=== PATIENT | male | born 1940 | race Caucasian/White ===

== ENCOUNTER 2019-10-20 08:37 | Inpatient (IN) ==
--- OUTSIDE RECORDS SUMMARY | 2019-10-20 08:41 | External Medical Summary | Continuity of Care Document ---
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.9) Pacemaker (V45.01) (Z95.0) History of osteoarthritis (V13.4) (Z87.39) Malignant neoplasm of lung, unspecified laterality, unspecified part of lung (162.9) (C34.90) Chronic obstructive pulmonary disease (496) (J44.9) 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 Refills: 0 Multi Vitamin/Minerals Oral Tablet; TAKE 1 TABLET DAILY. Refills: 0 Metoprolol Tartrate 100 MG Oral Tablet; TAKE 1 TABLET DAILY. Refills: 0 DuoNeb 0.5-2.5 (3) MG/3ML SOLN; INHALE PUFFS PRN Refills: 0 Combivent Respimat 20-100 MCG/ACT Inhala tion Aerosol Solution; INHALE 2 PUFFS DAILY NEEDED Refills: 0 Warfarin Sodium TABS; TAKE TABLET as directed Refills: 0 Acidophilus Oral Capsule Refills: 0 Calcium 500 MG TABS Refills: 0 Compazine 10 MG TABS Refills: 0 Xgeva 120 MG/1.7ML Subcutaneous Solution Refills: 0 predniSONE 10 MG Oral Tablet; Take 4 pil ls daily for 2 days, then 3 pills daily for 2 days, then 2 pills daily for 2 days, then 1 pill daily for 2 days. RICKY Lazo Start: 25-Jun-2018 Quantity: 20 Refills: 0 Neurontin TABS; TAKE 1 TABLET 3 TIMES DAILY. Refills: 0 Brovana NEBU; INHALE THE CONTENTS OF 1 V IAL TWO TIMES DAILY IN THE MORNING AND EVENING VIA STANDARD JET NEBULIZER DIRECTED. Refills: 0 Finasteride 5 MG Oral Tablet; TAKE 1 TABLET DAILY. Refills: 0 Valtrex TABS Refills: 0 Spiriva HandiHaler 18 MCG Inhalation Capsule Refills: 0 Revlimid 10 MG Oral Capsule Refills: 0 prednisoLONE Acetate 1 % Ophthalmic Suspension Refills: 0 oxyCODONE HCl - 5 MG Oral Tablet Refills: 0 MiraLax POWD Refills: 0 Magnesium TABS Refills: 0 Lipitor 80 MG Oral Tablet Refills: 0 Lasix TABS Refills: 0 Finasteride 5 MG Oral Tablet Refills: 0 Erythromycin 2 % External Gel Refills: 0 Doxycycline Hyclate 100 MG Oral Capsule Refills: 0 Dexamethasone 4 MG Oral Tablet Refills: 0 Procedures History of Pacemaker Permanent Placement Status: Completed History of Pacemaker Placement Status: C ompleted History of Tonsillectomy Status: Complet ed History of Lung Segmental Resection Stat us: Completed History of Surgery For Abdominal Aortic Aneurysm Status: Completed History of Cath Placement Of Stent 2 Sta tus: Completed History of Peripheral Nerve Block Wrist Median Right Status: Completed History of Elbow Incision And Drainage Infected Bursa Status: Completed History of Laminectomy Lumbar Status: Co mpleted History of colonoscopy Status: Completed History of carpal tunnel surgery Status: Completed History of Cataract Surgery Status: Comp leted History of Back Surgery Status: Complete d Immunizations Influenza On: 2000 Pneumococcal polysaccharide vaccine, 23 valent On: 2000 Family History Father Family history of hypertension (V17.49) (Z82.49) Status: Act mignon Family history of cardiac disorder (V17.49) (Z82.49) Status: Active Brother FHx: cancer (V16.9) (Z80.9) Status: Active Social History - Smoking Status Ex-smoker Plan of Treatment Planned Observations Planned Goals not documented Results No Known Results Results not documented Encounters Appointment; Chito Quick Au.D.|CCC-A 25-Jun-2018 9:20 Encounter Diagnosis: Problem not documented Appointment; Luly Lazo PA-C 25-Jun-2018 10:40 Encounter Diagnosis: Problem not documented"
[2019-10-20] MEDS ORDERED: ALBUTEROL HFA 8 GM INHALER INH ONE (08:54)
[2019-10-20 09:40] LABS: INR 1.2 (0.9-1.1); Partial Thromboplastin Time 28.4 Seconds (21.0-31.0); Prothrombin Time 12.5 Seconds (9.0-12.0)
[2019-10-20 09:46] LABS: Albumin Level 2.5 gm/dl (3.4-5.0); BUN Creatinine Ratio 35.6 (10-20); C Reactive Protein 1.74 mg/dl (0-0.29); Calcium 8.8 mg/dl (8.5-10.1); Creatinine Clr Calc Pharmacy 70.1 ml/min; Est GFR (African American) 86.7; Est GFR (Non-African American) 74.8; Magnesium 2.2 mg/dl (1.8-2.4)
[2019-10-20 09:58] LABS: Acanthocytes 1+; Basophils # (auto) 0.02 K/uL (0-0.2); Basophils % (auto) 0.4 %; Hematocrit (blood only) 31.2 % (42-52); Hemoglobin 10.3 g/dL (14.0-18.0); Immature Granulocytes # (auto) 0.02 K/uL (0.00-0.02); Immature Granulocytes % (auto) 0.4 %; Lymphocytes # (auto) 1.47 K/uL (1.2-3.4); Lymphocytes % (auto) 32.5 %; Mean Corpuscular Volume 87.9 fL (80-100); Mean Platelet Volume 10.5 fL (7.4-10.4); Monocytes # (auto) 0.17 K/uL (0.11-0.59); Monocytes % (auto) 3.8 %; Neutrophils # (auto) 2.85 K/uL (1.4-6.5); Neutrophils % (auto) 62.9 %; Ovalocytes 1+; Platelet Count 80 K/uL (130-400); Platelet Estimate Decreased (Normal); RDW Coefficient of Variation 17.4 % (11.5-14.5); RDW Standard Deviation 56.7 fL (36.4-46.3); Red Blood Count 3.55 M/uL (4.7-6.1); White Blood Count 4.53 K/uL (4.8-10.8)
--- NOTE | 2019-10-20 10:02 | XRay Report ---
XR chest 1V portable CLINICAL HISTORY: SEPSIS COMPARISON STUDY: 03/20/2009 FINDINGS: The heart is borderline enlarged. There is a right subclavian dual-chamber central venous p acemaker present. Postsurgical changes are present on the right with right apical surgical clips. The re are right upper and mid lung zone airspace opacities suspicious for a pneumonia. There is mild bib asilar interstitial thickening. There is underlying pulmonary edema.[ IMPRESSION: Right lung airspace opacity suspicious for pneumonia. Clinical and radiographic follow-up is recommended. ACT 112: Negative or not required by law. Electronically signed by: Antony Hernandez M.D. 10/20/2019 10:01 AM
[2019-10-20] MEDS ORDERED: LEVOFLOXACIN/D5W 750 MG/150 ML BAG IV STA (10:10)
[2019-10-20] MEDS ORDERED: VANCOMYCIN CONSULT ACTIVE PRN ×2 (10:10→12:54)
[2019-10-20] MEDS ORDERED: CEFEPIME 2,000 MG/20 ML VIAL IV STA (10:10)
[2019-10-20] MEDS ORDERED: VANCOMYCIN HCL 1,750 MG in SODIUM CHLORIDE 0.9% 500 ML IV ONE (10:10)
[2019-10-20] MEDS ORDERED: SODIUM CHLORIDE 0.9% 1000ML 1,000 ML IV ONE (10:10)
[2019-10-20 10:11] LABS: Influenza A virus by PCR Neg for Influ A (Neg); Influenza B virus by PCR Neg for Influ B (Neg)
[2019-10-20] MEDS ORDERED: ACETAMINOPHEN 1,000 MG/100 ML VIAL IV STA (10:12)
[2019-10-20 10:18] LABS: Albumin Globulin Ratio 0.7 (0.9-2); Bilirubin,Total 0.5 mg/dl (0.2-1); Creatine Kinase MB 1.8 ng/ml (0.5-3.6); Ferritin 157.6 ng/ml (8-388); Globulin 3.7 gm/dl (2.5-4.0); Total Protein 6.2 gm/dl (6.4-8.2); Troponin I 0.118 ng/ml (0-0.045)
[2019-10-20 10:32] LABS: SARS CoV2 RNA(COVID-19) InHosp NEGATIVE (Negative)
[2019-10-20] MEDS ORDERED: methylPREDNISolone 125 MG/2 ML VIAL IV SCH (11:30)
--- NOTE | 2019-10-20 11:31 | History & Physical Report ---
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 He presents from [facility] for with worsening shortness of breath and fever and was sent to [facility] ER for further evaluation. Here, he was found to be requiring 6 L nasal cannula, he was tachycardic, borderline low blood pressure, with a positive lactate, and a fever to 38.1 C. He was found to have a right-sided multifocal pneumonia on chest x-ray as well as an abnormal urinalysis. His CoVid-19 rapid test was negative, and a bio fire was ordered at the time of admission which is still pending. His troponin was mildly elevated at 0.118 and his ECG showed atrial sensed and ventricular paced rhythm. In the ER, he was given 500 mL's of normal saline, IV vancomycin, IV cefepime, and IV levofloxacin. Of note, he was given prednisone 50 mg p.o. x1 at [facility] prior to arrival. He will be admitted for sepsis, recurrent pneumonia and possible UTI, acute on chronic respiratory failure with hypoxia. -Admit to PCU -Continue broad-spectrum antibiotics for gram-negative pneumonia as well as MRSA pneumonia with cefepime, vancomycin, levofloxacin -Check MRSA swab and discontinue vancomycin if negative -Check CT of the chest -Consult pulmonology for further recommendations given complex history and recurrent pneumonia -Follow urine culture, blood cultures, obtain sputum culture -Follow-up on bio fire rapid respiratory viral panel -Tylenol as needed for fever -Will not give any further IV fluids given his severe cardiomyopathy (2) Pneumonia: As noted above -Appreciate further input from pulmonology (3) UTI (urinary tract infection): -As above (4) Chronic respiratory failure with hypoxia: With acute on chronic respiratory failure with hypoxia Requiring 6 L nasal cannula here At home is on 3 L nasal cannula at at bedtime and with exertion during the day -Treating with his usual bronchodilators, inhaled corticosteroids, IV steroids -Wean down to home dose of O2 as able to (5) Elevated troponin: Mildly elevated As per review of scanned in cardiology records, he had a normal cardiac catheterization in the last few years and has a nonischemic cardiomyopathy This may be myocardial demand ischemia in the setting of sepsis and pneumonia Paced rhythm on ECG, difficult to assess for ischemia -Trend serial troponin -Check echocardiogram (6) Nonischemic cardiomyopathy: -As noted above, with ICD in place since 2013 With frequent small runs of VT while he was seen him in the ER -Continue Toprol-XL, losartan -Check echocardiogram -Consult cardiology to help manage CHF in the setting of severe cardiomyopathy during this admission -Consider pacemaker interrogation in the morning (7) Chronic systolic CHF (congestive heart failure): As above, appears euvolemic to slightly hypervolemic which could be from more rapid ventricular rates with acute illness -Daily weights, strict I's and O's -Continue home Lasix 60 mg once daily and give IV Lasix if needed (8) HTN (hypertension), benign: -Blood pressures low normal but likely secondary to severe cardiomyopathy -Continue home Toprol-XL and losartan which are really more for guideline directed therapy for CHF (9) Lung cancer: Status post right upper lobectomy in 2005 with subsequent XRT/chemotherapy with recurrence near the mediastinum on the right in 2008 again treated with chemotherapy and XRT -Follows with oncology at [facility] (10) COPD (chronic obstructive pulmonary disease): With exacerbation here -IV steroids, bronchodilators, inhaled corticosteroids as above Appreciate pulmonary input (11) Multiple myeloma: -Currently on Revlimid once daily and dexamethasone 6 mg on Mondays -Hold Revlimid while acutely ill -Follows with oncology at [facility] (12) Pancytopenia: Likely secondary to Revlimid therapy -Follow CBC Transfusional support as needed (13) Postherpetic neuralgia: With involvement of the right eye-chronic -Continue home gabapentin doses (14) Paroxysmal atrial fibrillation: -Continue rate control with metoprolol, digoxin -Pulmonology recommended holding Eliquis upon admission in case of pulmonary hemorrhage and/or need for bronchoscopy -Recommend restarting Eliquis if no procedure planned and if pulmonary hemorrhage is ruled out (15) Chronic anticoagulation: Eliquis on hold as above-restart when able to (16) GERD (gastroesophageal reflux disease): Continue PPI Suspected aspiration in the past as per his son -Speech consult placed (17) BPH (benign prostatic hyperplasia): No acute issues -Continue tamsulosin and finasteride (18) Depression: Was just started on mirtazapine 15 mg at bedtime a few days ago at rehab -Continue mirtazapine here (19) DVT prophylaxis: Eliquis on hold, SCDs Disposition-admit to PCU, expect at least a 2 midnight stay for critical illness and complex comorbidities PT/OT evaluations placed Case management consult also will be needed Full code-patient's son is his HC POA and can be reached when needed at Kris Rankin [phone]-of note, his son is the General Manager of [employer] and a former check cashier and has a wealth of knowledge regarding his father's medical history History of Present Illness Chief Complaint: Fever, shortness of breath Primary Care Provider: [facility], [facility] This patient is an 79-year-old male with a complex history of lung cancer in 2005 status post right upper lobectomy/XRT/chemotherapy with recurrence near the mediastinum and repeat XRT/chemotherapy in 2008, multiple myeloma currently on Revlimid and dexamethasone, chronic respiratory failure with hypoxia using 3 L nasal cannula O2 at bedtime and with exertion during the daytime, COPD, chronic systolic CHF with an EF of 31% status post PPM/AICD for nonischemic cardiomyopathy, HTN, 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 He reports he had a right total shoulder arthroplasty on June 15, 2019 at [facility] and went to rehab for 3 weeks after that. He then went home with home health and within 2 weeks later developed pneumonia and was readmitted to the [facility] for approximately 3 weeks in June. He then was discharged and felt well enough to go on a planned family vacation to [place] for the first week of July. Shortly after that, he felt very bad and was readmitted initially to [facility] and then transferred to [facility] in [place] again with recurrent pneumonia and spent approximately another 2 weeks in the hospital. He reports that he was never on the ventilator. He was then sent to rehab at [facility] for approximately the last 10 days where he then developed worsening shortness of breath and fever and was sent to [facility] ER for further evaluation. Here, he was found to be requiring 6 L nasal cannula, he was tachycardic, borderline low blood pressure, with a positive lactate, and a fever to 38.1 C. He was found to have a right multifocal pneumonia on chest x-ray. His CoVid-19 rapid test was negative, and a bio fire was ordered at the time of admission which is still pending. His troponin was mildly elevated at 0.118 and his ECG showed atrial sensed and ventricular paced rhythm. In the ER, he was given 500 mL's of normal saline, IV vancomycin, IV cefepime, and IV levofloxacin. Of note, he was given prednisone 50 mg p.o. x1 at [facility] prior to arrival. He will be admitted for sepsis, recurrent pneumonia, acute on chronic respiratory failure with hypoxia. Allergies Allergy/AdvReac Type Severity Reaction Status Date / Time Penicillins Allergy Mild Verified 10/20/19 10:12 Sulfa (Sulfonamide Allergy Mild Verified 10/20/19 10:12 Antibiotics) LOCALANESTHETIC Allergy Mild TOLERATES Uncoded 10/20/19 10:12 LIDOCAINE Home Medications Home Medications Medication Instructions Recorded Confirmed Type Lactobacillus acidoph-L.bulgar 1 tab PO QAM 10/20/19 10/20/19 History [Floranex] Neosporin Drops 2 drp OPB BID 10/20/19 10/20/19 History apixaban [Eliquis] 5 mg PO BID 10/20/19 10/20/19 History arformoterol [Brovana] 15 mcg INHALATION BID 10/20/19 10/20/19 History atorvastatin 80 mg PO HS 10/20/19 10/20/19 History budesonide 0.5 mg INHALATION BID 10/20/19 10/20/19 History dexamethasone 6 mg PO MO 10/20/19 10/20/19 History digoxin 125 mcg PO MOWEFR 10/20/19 10/20/19 History digoxin 250 mcg PO SUTUTHSA 10/20/19 10/20/19 History ferrous sulfate 325 mg PO QDB 10/20/19 10/20/19 History finasteride [Proscar] 5 mg PO HS 10/20/19 10/20/19 History furosemide 60 mg PO QAM 10/20/19 10/20/19 History gabapentin See Rx Instructions .ROUTE .COMPLEX 10/20/19 10/20/19 History ipratropium-albuterol 3 ml INHALATION Q6H PRN 10/20/19 10/20/19 History lenalidomide [Revlimid] 10 mg PO QAM 10/20/19 10/20/19 History losartan 25 mg PO DAILY 10/20/19 10/20/19 History metoprolol succinate 50 mg PO DAILY@1900 10/20/19 10/20/19 History mirtazapine 15 mg PO HS 10/20/19 10/20/19 History multivitamin 1 tab PO QAM 10/20/19 10/20/19 History nystatin 5 ml PO QID 10/20/19 10/20/19 History pantoprazole 40 mg PO QAM 10/20/19 10/20/19 History prednisone 10 mg PO .TAPER DOSE 10/20/19 10/20/19 History tamsulosin 0.4 mg PO HS 10/20/19 10/20/19 History Past Med/Surg History Medical History (Updated 10/20/19 @ 21:12 by Lindsey Haines MD) BPH (benign prostatic hyperplasia) Chronic anticoagulation Chronic respiratory failure with hypoxia Chronic systolic CHF (congestive heart failure) COPD (chronic obstructive pulmonary disease) Depression GERD (gastroesophageal reflux disease) HTN (hypertension), benign Hyperlipidemia Lung cancer Multiple myeloma Nonischemic cardiomyopathy Pancytopenia Paroxysmal atrial fibrillation Postherpetic neuralgia Surgical History (Updated 10/20/19 @ 20:43 by Lindsey Haines MD) History of bursectomy History of endovascular stent graft for abdominal aortic aneurysm History of lobectomy of lung History of lumbosacral spine surgery History of permanent cardiac pacemaker placement History of tonsillectomy Status post reverse total arthroplasty of right shoulder Family History Other Family history non-contributory Social History (Updated 10/20/19 @ 13:49 by Lindsey Haines MD) Preferred Language: Lao Communication Ability: Effective Teaching Fellow Required: No Beliefs That Will Affect Care: None marital status: / Current Living Situation: Rehab Other Information That Helps Us Care for You: No Feels Safe at Home: Yes Safety Concerns: Feels Safe At This Time Smoking Status: Former smoker Smoking End Date: 1999 ; Hx Alcohol Use: No Hx Substance Use: No Review of Systems Review of Systems: All systems reviewed & are unremarkable except as noted in HPI & below Denies headaches or lightheadedness, no chest pains, feels short of breath and has a nonproductive cough No hemoptysis No abdominal pain, no diarrhea or constipation No leg swelling Has chronic right shoulder pain since his surgery Physical Exam Constitutional: + ill appearing and + frail appearing; no acute distress Eyes: + eyelid abnormality (Right eye ptosis) and + anicteric sclerae ENMT: external ear and nose normal, oropharynx normal Neck: trachea midline, no thyromegaly Respiratory: normal respiratory effort Auscultation: + rhonchi (Right lower and middle lung aranda); no crackles and no wheezes Cardiovascular: Rate/Rhythm: regular rate and + irregularly irregular (With frequent ectopy) Heart Sounds: no murmur Extremities: no edema Chest (Breasts): Chest: + pacemaker Gastrointestinal (Abdomen): normal bowel sounds, soft, nontender, no hepatosplenomegaly Musculoskeletal: Extremities: extremities normal to inspection; no cyanosis and no clubbing Skin: no rashes, warm and dry Neurologic: moves all extremities and awake; no focal motor deficits Psychiatric: A+Ox3, euthymic affect Lymphatic: no lymphedema Results & Data Results & Data ([place]) Vital Signs (Past 12 Hours) Vital Signs Temp Pulse Resp BP Pulse Ox 10/20/19 11:24 87 15 97/77 L 98 10/20/19 11:15 90 26 H 98 10/20/19 11:01 85 21 97 10/20/19 11:00 88 20 97 10/20/19 10:45 92 H 21 92 10/20/19 10:33 83 23 98/59 L 95 10/20/19 10:30 87 21 10/20/19 10:15 84 27 H 10/20/19 10:00 85 27 H 10/20/19 09:46 75 21 93/53 L 10/20/19 09:45 84 18 10/20/19 09:30 90 17 10/20/19 09:15 103 H 20 92 10/20/19 09:03 89 21 92 10/20/19 08:46 96 10/20/19 08:26 38.1 C H 91 H 24 108/40 L 96 Laboratory Results 10/20/19 10/20/19 10/20/19 Range/Units 16:45 14:56 14:56 WBC (4.8-10.8) K/uL RBC (4.7-6.1) M/uL Hgb (14.0-18.0) g/dL Hct (42-52) % MCV (80-100) fL MCH (25-34) pg MCHC (32-36) g/dL RDW Std Deviation (36.4-46.3) fL RDW Coeff of Sonja (11.5-14.5) % Plt Count (130-400) K/uL MPV (7.4-10.4) fL Immature Gran % (Auto) % Neut % (Auto) % Lymph % (Auto) % [place] % (Auto) % Eos % (Auto) % Baso % (Auto) % Immature Gran # (Auto) (0.00-0.02) K/uL Neut # (Auto) (1.4-6.5) K/uL Lymph # (Auto) (1.2-3.4) K/uL [place] # (Auto) (0.11-0.59) K/uL Eos # (Auto) (0-0.5) K/uL Baso # (Auto) (0-0.2) K/uL Platelet Estimate (Normal) Ovalocytes Acanthocytes (Spur) ESR (0-14) mm/hr PT (9.0-12.0) Seconds INR (0.9-1.1) APTT (21.0-31.0) Seconds PTT Ratio Sodium (136-145) mmol/L Potassium (3.5-5.1) mmol/L Chloride (98-107) mmol/L Carbon Dioxide (21-32) mmol/L Anion Gap (3-11) BUN (7-18) mg/dl Creatinine (0.6-1.4) mg/dl Est Cr Clr Drug Dosing ml/min Est GFR ( Amer) Est GFR (Non-Af Amer) BUN/Creatinine Ratio (10-20) Glucose (70-99) mg/dl Lactate (0.4-2.0) mmol/L Calcium (8.5-10.1) mg/dl Magnesium (1.8-2.4) mg/dl Ferritin (8-388) ng/ml Total Bilirubin (0.2-1) mg/dl AST (15-37) U/L ALT (12-78) U/L Alkaline Phosphatase (45-117) U/L Lactate Dehydrogenase (87-241) U/L Total Creatine Kinase 30 L (39-308) U/L CK-MB (CK-2) (0.5-3.6) ng/ml CK/CKMB % Calc (0-3.0) Troponin I 0.097 H* (0-0.045) ng/ml C-Reactive Protein (0-0.29) mg/dl NT-Pro-B Natriuret Pep (0-1800) pg/ml Total Protein (6.4-8.2) gm/dl Albumin (3.4-5.0) gm/dl Globulin (2.5-4.0) gm/dl Albumin/Globulin Ratio (0.9-2) Procalcitonin (0-0.5) ng/ml Urine Color Yellow Urine Appearance Clear (Clear) Urine pH 5.5 (4.5-7.5) Ur Specific [place] 1.015 (1.000-1.030) Urine Protein Trace H (Negative) Urine Glucose (UA) Negative (Negative) Urine Ketones Negative (Negative) Urine Blood 1+ H (Negative) Urine Nitrite Negative (Negative) Urine Bilirubin Negative (Negative) Urine Urobilinogen Negative (Negative) Ur Leukocyte Esterase 2+ H (Negative) Urine WBC (Auto) >30 H (0-5) /hpf Urine RBC (Auto) 0-4 (0-4) /hpf U Hyaline Cast (Auto) 1-5 (0-5) /lpf U Epithel Cells (Auto) 0-5 (0-5) /lpf Urine Bacteria (Auto) Negative (Negative) Nasal Screen MRSA (PCR) (Negative) Adenovirus (PCR) (NotDetected) B. pertussis DNA (PCR) (NotDetected) B.parapertussis DNA PCR (NotDetected) C. pneumoniae DNA (PCR) (NotDetected) Coronavirus OC43 (PCR) (NotDetected) Coronavirus HKU1 (PCR) (NotDetected) Coronavirus 229E (PCR) (NotDetected) COVID-19 PCR (Negative) Coronavirus NL63 (PCR) (NotDetected) Human Metapneumovir PCR (NotDetected) Influenza Type A (PCR) (Neg) Influenza Type B (PCR) (Neg) M. pneumoniae (PCR) (NotDetected) Parainfluenza 1 (PCR) (NotDetected) Parainfluenza 2 (PCR) (NotDetected) Parainfluenza 3 (PCR) (NotDetected) Parainfluenza 4 (PCR) (NotDetected) RSV (PCR) (NotDetected) Entero/Rhino (PCR) (NotDetected) 10/20/19 10/20/19 10/20/19 Range/Units 11:41 11:21 09:10 WBC (4.8-10.8) K/uL RBC (4.7-6.1) M/uL Hgb (14.0-18.0) g/dL Hct (42-52) % MCV (80-100) fL MCH (25-34) pg MCHC (32-36) g/dL RDW Std Deviation (36.4-46.3) fL RDW Coeff of Sonja (11.5-14.5) % Plt Count (130-400) K/uL MPV (7.4-10.4) fL Immature Gran % (Auto) % Neut % (Auto) % Lymph % (Auto) % Winston % (Auto) % Eos % (Auto) % Baso % (Auto) % Immature Gran # (Auto) (0.00-0.02) K/uL Neut # (Auto) (1.4-6.5) K/uL Lymph # (Auto) (1.2-3.4) K/uL [place] # (Auto) (0.11-0.59) K/uL Eos # (Auto) (0-0.5) K/uL Baso # (Auto) (0-0.2) K/uL Platelet Estimate (Normal) Ovalocytes Acanthocytes (Spur) ESR (0-14) mm/hr PT (9.0-12.0) Seconds INR (0.9-1.1) APTT (21.0-31.0) Seconds PTT Ratio Sodium (136-145) mmol/L Potassium (3.5-5.1) mmol/L Chloride (98-107) mmol/L Carbon Dioxide (21-32) mmol/L Anion Gap (3-11) BUN (7-18) mg/dl Creatinine (0.6-1.4) mg/dl Est Cr Clr Drug Dosing ml/min Est GFR ( Amer) Est GFR (Non-Af Amer) BUN/Creatinine Ratio (10-20) Glucose (70-99) mg/dl Lactate 1.4 (0.4-2.0) mmol/L Calcium (8.5-10.1) mg/dl Magnesium (1.8-2.4) mg/dl Ferritin (8-388) ng/ml Total Bilirubin (0.2-1) mg/dl AST (15-37) U/L ALT (12-78) U/L Alkaline Phosphatase (45-117) U/L Lactate Dehydrogenase (87-241) U/L Total Creatine Kinase (39-308) U/L CK-MB (CK-2) (0.5-3.6) ng/ml CK/CKMB % Calc (0-3.0) Troponin I (0-0.045) ng/ml C-Reactive Protein (0-0.29) mg/dl NT-Pro-B Natriuret Pep (0-1800) pg/ml Total Protein (6.4-8.2) gm/dl Albumin (3.4-5.0) gm/dl Globulin (2.5-4.0) gm/dl Albumin/Globulin Ratio (0.9-2) Procalcitonin (0-0.5) ng/ml Urine Color Urine Appearance (Clear) Urine pH (4.5-7.5) Ur Specific [place] (1.000-1.030) Urine Protein (Negative) Urine Glucose (UA) (Negative) Urine Ketones (Negative) Urine Blood (Negative) Urine Nitrite (Negative) Urine Bilirubin (Negative) Urine Urobilinogen (Negative) Ur Leukocyte Esterase (Negative) Urine WBC (Auto) (0-5) /hpf Urine RBC (Auto) (0-4) /hpf U Hyaline Cast (Auto) (0-5) /lpf U Epithel Cells (Auto) (0-5) /lpf Urine Bacteria (Auto) (Negative) Nasal Screen MRSA (PCR) Negative (Negative) Adenovirus (PCR) Not Detected (NotDetected) B. pertussis DNA (PCR) Not Detected (NotDetected) B.parapertussis DNA PCR Not Detected (NotDetected) C. pneumoniae DNA (PCR) Not Detected (NotDetected) Coronavirus OC43 (PCR) Not Detected (NotDetected) Coronavirus HKU1 (PCR) Not Detected (NotDetected) Coronavirus 229E (PCR) Not Detected (NotDetected) COVID-19 PCR (Negative) Coronavirus NL63 (PCR) Not Detected (NotDetected) Human Metapneumovir PCR Not Detected (NotDetected) Influenza Type A (PCR) Not Detected (Neg) Influenza Type B (PCR) Not Detected (Neg) M. pneumoniae (PCR) Not Detected (NotDetected) Parainfluenza 1 (PCR) Not Detected (NotDetected) Parainfluenza 2 (PCR) Not Detected (NotDetected) Parainfluenza 3 (PCR) Not Detected (NotDetected) Parainfluenza 4 (PCR) Not Detected (NotDetected) RSV (PCR) Not Detected (NotDetected) Entero/Rhino (PCR) Not Detected (NotDetected) 10/20/19 10/20/19 10/20/19 Range/Units 09:10 09:10 09:10 WBC (4.8-10.8) K/uL RBC (4.7-6.1) M/uL Hgb (14.0-18.0) g/dL Hct (42-52) % MCV (80-100) fL MCH (25-34) pg MCHC (32-36) g/dL RDW Std Deviation (36.4-46.3) fL RDW Coeff of Sonja (11.5-14.5) % Plt Count (130-400) K/uL MPV (7.4-10.4) fL Immature Gran % (Auto) % Neut % (Auto) % Lymph % (Auto) % [place] % (Auto) % Eos % (Auto) % Baso % (Auto) % Immature Gran # (Auto) (0.00-0.02) K/uL Neut # (Auto) (1.4-6.5) K/uL Lymph # (Auto) (1.2-3.4) K/uL [place] # (Auto) (0.11-0.59) K/uL Eos # (Auto) (0-0.5) K/uL Baso # (Auto) (0-0.2) K/uL Platelet Estimate (Normal) Ovalocytes Acanthocytes (Spur) ESR (0-14) mm/hr PT (9.0-12.0) Seconds INR (0.9-1.1) APTT (21.0-31.0) Seconds PTT Ratio Sodium (136-145) mmol/L Potassium (3.5-5.1) mmol/L Chloride (98-107) mmol/L Carbon Dioxide (21-32) mmol/L Anion Gap (3-11) BUN (7-18) mg/dl Creatinine (0.6-1.4) mg/dl Est Cr Clr Drug Dosing ml/min Est GFR ( Amer) Est GFR (Non-Af Amer) BUN/Creatinine Ratio (10-20) Glucose (70-99) mg/dl Lactate (0.4-2.0) mmol/L Calcium (8.5-10.1) mg/dl Magnesium (1.8-2.4) mg/dl Ferritin (8-388) ng/ml Total Bilirubin (0.2-1) mg/dl AST (15-37) U/L ALT (12-78) U/L Alkaline Phosphatase (45-117) U/L Lactate Dehydrogenase 226 (87-241) U/L Total Creatine Kinase (39-308) U/L CK-MB (CK-2) (0.5-3.6) ng/ml CK/CKMB % Calc (0-3.0) Troponin I (0-0.045) ng/ml C-Reactive Protein (0-0.29) mg/dl NT-Pro-B Natriuret Pep (0-1800) pg/ml Total Protein (6.4-8.2) gm/dl Albumin (3.4-5.0) gm/dl Globulin (2.5-4.0) gm/dl Albumin/Globulin Ratio (0.9-2) Procalcitonin 0.13 (0-0.5) ng/ml Urine Color Urine Appearance (Clear) Urine pH (4.5-7.5) Ur Specific [place] (1.000-1.030) Urine Protein (Negative) Urine Glucose (UA) (Negative) Urine Ketones (Negative) Urine Blood (Negative) Urine Nitrite (Negative) Urine Bilirubin (Negative) Urine Urobilinogen (Negative) Ur Leukocyte Esterase (Negative) Urine WBC (Auto) (0-5) /hpf Urine RBC (Auto) (0-4) /hpf U Hyaline Cast (Auto) (0-5) /lpf U Epithel Cells (Auto) (0-5) /lpf Urine Bacteria (Auto) (Negative) Nasal Screen MRSA (PCR) (Negative) Adenovirus (PCR) (NotDetected) B. pertussis DNA (PCR) (NotDetected) B.parapertussis DNA PCR (NotDetected) C. pneumoniae DNA (PCR) (NotDetected) Coronavirus OC43 (PCR) (NotDetected) Coronavirus HKU1 (PCR) (NotDetected) Coronavirus 229E (PCR) (NotDetected) COVID-19 PCR NEGATIVE (Negative) Coronavirus NL63 (PCR) (NotDetected) Human Metapneumovir PCR (NotDetected) Influenza Type A (PCR) Neg for Influ A (Neg) Influenza Type B (PCR) Neg for Influ B (Neg) M. pneumoniae (PCR) (NotDetected) Parainfluenza 1 (PCR) (NotDetected) Parainfluenza 2 (PCR) (NotDetected) Parainfluenza 3 (PCR) (NotDetected) Parainfluenza 4 (PCR) (NotDetected) RSV (PCR) (NotDetected) Entero/Rhino (PCR) (NotDetected) 10/20/19 10/20/19 10/20/19 Range/Units 09:10 09:10 09:10 WBC (4.8-10.8) K/uL RBC (4.7-6.1) M/uL Hgb (14.0-18.0) g/dL Hct (42-52) % MCV (80-100) fL MCH (25-34) pg MCHC (32-36) g/dL RDW Std Deviation (36.4-46.3) fL RDW Coeff of Sonja (11.5-14.5) % Plt Count (130-400) K/uL MPV (7.4-10.4) fL Immature Gran % (Auto) % Neut % (Auto) % Lymph % (Auto) % [place] % (Auto) % Eos % (Auto) % Baso % (Auto) % Immature Gran # (Auto) (0.00-0.02) K/uL Neut # (Auto) (1.4-6.5) K/uL Lymph # (Auto) (1.2-3.4) K/uL [place] # (Auto) (0.11-0.59) K/uL Eos # (Auto) (0-0.5) K/uL Baso # (Auto) (0-0.2) K/uL Platelet Estimate (Normal) Ovalocytes Acanthocytes (Spur) ESR (0-14) mm/hr PT 12.5 H (9.0-12.0) Seconds INR 1.2 H (0.9-1.1) APTT 28.4 (21.0-31.0) Seconds PTT Ratio 1.0 Sodium 134 L (136-145) mmol/L Potassium 4.0 (3.5-5.1) mmol/L Chloride 96 L (98-107) mmol/L Carbon Dioxide 35 H (21-32) mmol/L Anion Gap 3.0 (3-11) BUN 34 H (7-18) mg/dl Creatinine 0.95 (0.6-1.4) mg/dl Est Cr Clr Drug Dosing 70.1 ml/min Est GFR ( Amer) 86.7 Est GFR (Non-Af Amer) 74.8 BUN/Creatinine Ratio 35.6 H (10-20) Glucose 98 (70-99) mg/dl Lactate 2.3 H* (0.4-2.0) mmol/L Calcium 8.8 (8.5-10.1) mg/dl Magnesium 2.2 (1.8-2.4) mg/dl Ferritin 157.6 (8-388) ng/ml Total Bilirubin 0.5 (0.2-1) mg/dl AST 19 (15-37) U/L ALT 25 (12-78) U/L Alkaline Phosphatase 113 (45-117) U/L Lactate Dehydrogenase (87-241) U/L Total Creatine Kinase 35 L (39-308) U/L CK-MB (CK-2) 1.8 (0.5-3.6) ng/ml CK/CKMB % Calc 5.1 H (0-3.0) Troponin I 0.118 H* (0-0.045) ng/ml C-Reactive Protein 1.74 H (0-0.29) mg/dl NT-Pro-B Natriuret Pep 4730 H (0-1800) pg/ml Total Protein 6.2 L (6.4-8.2) gm/dl Albumin 2.5 L (3.4-5.0) gm/dl Globulin 3.7 (2.5-4.0) gm/dl Albumin/Globulin Ratio 0.7 L (0.9-2) Procalcitonin (0-0.5) ng/ml Urine Color Urine Appearance (Clear) Urine pH (4.5-7.5) Ur Specific [place] (1.000-1.030) Urine Protein (Negative) Urine Glucose (UA) (Negative) Urine Ketones (Negative) Urine Blood (Negative) Urine Nitrite (Negative) Urine Bilirubin (Negative) Urine Urobilinogen (Negative) Ur Leukocyte Esterase (Negative) Urine WBC (Auto) (0-5) /hpf Urine RBC (Auto) (0-4) /hpf U Hyaline Cast (Auto) (0-5) /lpf U Epithel Cells (Auto) (0-5) /lpf Urine Bacteria (Auto) (Negative) Nasal Screen MRSA (PCR) (Negative) Adenovirus (PCR) (NotDetected) B. pertussis DNA (PCR) (NotDetected) B.parapertussis DNA PCR (NotDetected) C. pneumoniae DNA (PCR) (NotDetected) Coronavirus OC43 (PCR) (NotDetected) Coronavirus HKU1 (PCR) (NotDetected) Coronavirus 229E (PCR) (NotDetected) COVID-19 PCR (Negative) Coronavirus NL63 (PCR) (NotDetected) Human Metapneumovir PCR (NotDetected) Influenza Type A (PCR) (Neg) Influenza Type B (PCR) (Neg) M. pneumoniae (PCR) (NotDetected) Parainfluenza 1 (PCR) (NotDetected) Parainfluenza 2 (PCR) (NotDetected) Parainfluenza 3 (PCR) (NotDetected) Parainfluenza 4 (PCR) (NotDetected) RSV (PCR) (NotDetected) Entero/Rhino (PCR) (NotDetected) 10/20/19 10/20/19 Range/Units 09:10 09:10 WBC 4.53 L (4.8-10.8) K/uL RBC 3.55 L (4.7-6.1) M/uL Hgb 10.3 L (14.0-18.0) g/dL Hct 31.2 L (42-52) % MCV 87.9 (80-100) fL MCH 29.0 (25-34) pg MCHC 33.0 (32-36) g/dL RDW Std Deviation 56.7 H (36.4-46.3) fL RDW Coeff of Sonja 17.4 H (11.5-14.5) % Plt Count 80 L (130-400) K/uL MPV 10.5 H (7.4-10.4) fL Immature Gran % (Auto) 0.4 % Neut % (Auto) 62.9 % Lymph % (Auto) 32.5 % [place] % (Auto) 3.8 % Eos % (Auto) 0.0 % Baso % (Auto) 0.4 % Immature Gran # (Auto) 0.02 (0.00-0.02) K/uL Neut # (Auto) 2.85 (1.4-6.5) K/uL Lymph # (Auto) 1.47 (1.2-3.4) K/uL [place] # (Auto) 0.17 (0.11-0.59) K/uL Eos # (Auto) 0.00 (0-0.5) K/uL Baso # (Auto) 0.02 (0-0.2) K/uL Platelet Estimate Decreased L (Normal) Ovalocytes 1+ Acanthocytes (Spur) 1+ ESR 40 H (0-14) mm/hr PT (9.0-12.0) Seconds INR (0.9-1.1) APTT (21.0-31.0) Seconds PTT Ratio Sodium (136-145) mmol/L Potassium (3.5-5.1) mmol/L Chloride (98-107) mmol/L Carbon Dioxide (21-32) mmol/L Anion Gap (3-11) BUN (7-18) mg/dl Creatinine (0.6-1.4) mg/dl Est Cr Clr Drug Dosing ml/min Est GFR ( Amer) Est GFR (Non-Af Amer) BUN/Creatinine Ratio (10-20) Glucose (70-99) mg/dl Lactate (0.4-2.0) mmol/L Calcium (8.5-10.1) mg/dl Magnesium (1.8-2.4) mg/dl Ferritin (8-388) ng/ml Total Bilirubin (0.2-1) mg/dl AST (15-37) U/L ALT (12-78) U/L Alkaline Phosphatase (45-117) U/L Lactate Dehydrogenase (87-241) U/L Total Creatine Kinase (39-308) U/L CK-MB (CK-2) (0.5-3.6) ng/ml CK/CKMB % Calc (0-3.0) Troponin I (0-0.045) ng/ml C-Reactive Protein (0-0.29) mg/dl NT-Pro-B Natriuret Pep (0-1800) pg/ml Total Protein (6.4-8.2) gm/dl Albumin (3.4-5.0) gm/dl Globulin (2.5-4.0) gm/dl Albumin/Globulin Ratio (0.9-2) Procalcitonin (0-0.5) ng/ml Urine Color Urine Appearance (Clear) Urine pH (4.5-7.5) Ur Specific [place] (1.000-1.030) Urine Protein (Negative) Urine Glucose (UA) (Negative) Urine Ketones (Negative) Urine Blood (Negative) Urine Nitrite (Negative) Urine Bilirubin (Negative) Urine Urobilinogen (Negative) Ur Leukocyte Esterase (Negative) Urine WBC (Auto) (0-5) /hpf Urine RBC (Auto) (0-4) /hpf U Hyaline Cast (Auto) (0-5) /lpf U Epithel Cells (Auto) (0-5) /lpf Urine Bacteria (Auto) (Negative) Nasal Screen MRSA (PCR) (Negative) Adenovirus (PCR) (NotDetected) B. pertussis DNA (PCR) (NotDetected) B.parapertussis DNA PCR (NotDetected) C. pneumoniae DNA (PCR) (NotDetected) Coronavirus OC43 (PCR) (NotDetected) Coronavirus HKU1 (PCR) (NotDetected) Coronavirus 229E (PCR) (NotDetected) COVID-19 PCR (Negative) Coronavirus NL63 (PCR) (NotDetected) Human Metapneumovir PCR (NotDetected) Influenza Type A (PCR) (Neg) Influenza Type B (PCR) (Neg) M. pneumoniae (PCR) (NotDetected) Parainfluenza 1 (PCR) (NotDetected) Parainfluenza 2 (PCR) (NotDetected) Parainfluenza 3 (PCR) (NotDetected) Parainfluenza 4 (PCR) (NotDetected) RSV (PCR) (NotDetected) Entero/Rhino (PCR) (NotDetected) Code Status & VTE Plan Code Status Full code VTE Prophylaxis Plan VTE Prophylaxis will be ordered: Yes PG Care Time/CCT Total # of Minutes Spent Total Time Spent with Patient: Total time spent is greater than 50% in coordination of care (as documented) at patient's floor/unit and/or counseling patient: Coding Level of Care Code 73947 Initial Inpt Care Lvl 3 Diagnoses Fever R50.9 Pneumonia J18.9 Laterality: unspecified laterality Lung location: unspecified part of lung Pneumonia type: due to unspecified organism UTI (urinary tract infection) N39.0 Chronic respiratory failure with hypoxia J96.11 Elevated troponin R79.89 Nonischemic cardiomyopathy I42.8 Chronic systolic CHF (congestive heart failure) I50.22 HTN (hypertension), benign I10 Lung cancer C34.90 COPD (chronic obstructive pulmonary disease) J44.9 Multiple myeloma C90.00 Pancytopenia D61.818 Postherpetic neuralgia B02.29 Paroxysmal atrial fibrillation I48.0 Chronic anticoagulation Z79.01 GERD (gastroesophageal reflux disease) K21.9 BPH (benign prostatic hyperplasia) N40.0 Depression F32.9 DVT prophylaxis Z29.9 (1) Pneumonia Laterality: unspecified laterality Lung location: unspecified part of lung Pneumonia type: due to unspecified organism Qualified Code(s): J18.9 - Pneumonia, unspecified organism
[2019-10-20 12:26] LABS: Adenovirus PCR Not Detected (NotDetected); Bordetella parapertussis PCR Not Detected (NotDetected); Bordetella pertussis PCR Not Detected (NotDetected); Chlamydia pneumoniae PCR Not Detected (NotDetected); Coronavirus 229E PCR Not Detected (NotDetected); Coronavirus HKU1 PCR Not Detected (NotDetected); Coronavirus NL63 PCR Not Detected (NotDetected); Coronavirus OC43PCR Not Detected (NotDetected); Human Metapneumovirus PCR Not Detected (NotDetected); Influenza A PCR Not Detected (NotDetected); Influenza B PCR Not Detected (NotDetected); Mycoplasma pneumoniae PCR Not Detected (NotDetected); Parainfluenza Virus 1 PCR Not Detected (NotDetected); Parainfluenza Virus 2 PCR Not Detected (NotDetected); Parainfluenza Virus 3 PCR Not Detected (NotDetected); Parainfluenza Virus 4 PCR Not Detected (NotDetected); Respiratory Syncytial VirusPCR Not Detected (NotDetected); Rhinovirus/Enterovirus PCR Not Detected (NotDetected)
[2019-10-20] MEDS ORDERED: ACETAMINOPHEN 325 MG TAB PO PRN (12:54)
[2019-10-20] MEDS ORDERED: ONDANSETRON INJ 2 MG/ML 2 ML VIAL IV PRN (12:54)
[2019-10-20] MEDS ORDERED: POLYETHYLENE (MIRALAX) 17 GM PACK PO PRN (12:54)
--- NOTE | 2019-10-20 13:08 | Emergency Department Note ---
History of Present Illness General Chief complaint: Shortness of Breath/Dyspnea Source: patient, EMS, RN notes reviewed and old records reviewed Mode of arrival: EMS Limitations: no limitations History of Present Illness Provider complaint: Fever, cough Onset (ago): day(s) 1 This is an 79-year-old male who presents the emergency department complaining of shortness of breath as well as cough with productive sputum. The patient has a history of lung cancer and is currently receiving oral chemotherapy for it. He was sent in by his rehab facility. He recently had a negative COVID test. The patient is requiring more oxygen than note normal and is on 6 L here. He denies any chest pain. He has not been given anything for his fever. Home Medications Home Medications Medication Instructions Recorded Confirmed Type Lactobacillus acidoph-L.bulgar 1 tab PO QAM 10/20/19 10/20/19 History [Floranex] Neosporin Drops 2 drp OPB BID 10/20/19 10/20/19 History apixaban [Eliquis] 5 mg PO BID 10/20/19 10/20/19 History arformoterol [Brovana] 15 mcg INHALATION BID 10/20/19 10/20/19 History atorvastatin 80 mg PO HS 10/20/19 10/20/19 History budesonide 0.5 mg INHALATION BID 10/20/19 10/20/19 History dexamethasone 6 mg PO MO 10/20/19 10/20/19 History digoxin 125 mcg PO MOWEFR 10/20/19 10/20/19 History digoxin 250 mcg PO SUTUTHSA 10/20/19 10/20/19 History ferrous sulfate 325 mg PO QDB 10/20/19 10/20/19 History finasteride [Proscar] 5 mg PO HS 10/20/19 10/20/19 History furosemide 60 mg PO QAM 10/20/19 10/20/19 History gabapentin See Rx Instructions .ROUTE .COMPLEX 10/20/19 10/20/19 History ipratropium-albuterol 3 ml INHALATION Q6H PRN 10/20/19 10/20/19 History lenalidomide [Revlimid] 10 mg PO QAM 10/20/19 10/20/19 History losartan 25 mg PO DAILY 10/20/19 10/20/19 History metoprolol succinate 50 mg PO DAILY@1900 10/20/19 10/20/19 History mirtazapine 15 mg PO HS 10/20/19 10/20/19 History multivitamin 1 tab PO QAM 10/20/19 10/20/19 History nystatin 5 ml PO QID 10/20/19 10/20/19 History pantoprazole 40 mg PO QAM 10/20/19 10/20/19 History prednisone 10 mg PO .TAPER DOSE 10/20/19 10/20/19 History tamsulosin 0.4 mg PO HS 10/20/19 10/20/19 History Allergies Allergy/AdvReac Type Severity Reaction Status Date / Time Penicillins Allergy Mild Verified 10/20/19 10:12 Sulfa (Sulfonamide Allergy Mild Verified 10/20/19 10:12 Antibiotics) LOCALANESTHETIC Allergy Mild TOLERATES Uncoded 10/20/19 10:12 LIDOCAINE Past Med/Surg History Medical History BPH (benign prostatic hyperplasia) Chronic anticoagulation Chronic respiratory failure with hypoxia Chronic systolic CHF (congestive heart failure) COPD (chronic obstructive pulmonary disease) Depression GERD (gastroesophageal reflux disease) HTN (hypertension), benign Hyperlipidemia Lung cancer Multiple myeloma Nonischemic cardiomyopathy Pancytopenia Paroxysmal atrial fibrillation Postherpetic neuralgia Surgical History History of bursectomy History of endovascular stent graft for abdominal aortic aneurysm History of lobectomy of lung History of lumbosacral spine surgery History of permanent cardiac pacemaker placement History of tonsillectomy Status post reverse total arthroplasty of right shoulder Family History Other Family history non-contributory Social History Preferred Language: Azeri Communication Ability: Effective Career Specialist Required: No Beliefs That Will Affect Care: None marital status: / Current Living Situation: Rehab Other Information That Helps Us Care for You: No Feels Safe at Home: Yes Safety Concerns: Feels Safe At This Time Smoking Status: Former smoker Smoking End Date: 1999 ; Hx Alcohol Use: No Hx Substance Use: No Review of Systems A total of 10 systems reviewed and were otherwise negative Physical Exam Vital Signs Vital Signs - 24 hr 10/20/19 09:15 10/20/19 09:30 10/20/19 09:45 Pulse Rate 103 H 90 84 Pulse Rate from SpO2 Sensor 91 H Respiratory Rate 20 17 18 Blood Pressure Blood Pressure Mean Pulse Oximetry 92 10/20/19 09:46 10/20/19 10:00 10/20/19 10:15 Pulse Rate 75 85 84 Pulse Rate from SpO2 Sensor Respiratory Rate 21 27 H 27 H Blood Pressure 93/53 L Blood Pressure Mean 64 Pulse Oximetry 10/20/19 10:30 10/20/19 10:33 10/20/19 10:45 Pulse Rate 87 83 92 H Pulse Rate from SpO2 Sensor 70 86 Respiratory Rate 21 23 21 Blood Pressure 98/59 L Blood Pressure Mean 74 Pulse Oximetry 95 92 10/20/19 11:00 10/20/19 11:01 10/20/19 11:15 Pulse Rate 88 85 90 Pulse Rate from SpO2 Sensor 74 72 81 Respiratory Rate 20 21 26 H Blood Pressure Blood Pressure Mean Pulse Oximetry 97 97 98 10/20/19 11:24 10/20/19 11:25 Pulse Rate 87 87 Pulse Rate from SpO2 Sensor 83 84 Respiratory Rate 15 22 Blood Pressure 97/77 L Blood Pressure Mean 86 Pulse Oximetry 98 97 VITAL SIGNS - Vital signs and nursing notes were reviewed. GENERAL - 79-year-old male appearing stated age who is in no acute distress. Communicates well with provider and answers questions appropriately. SKIN - Without rashes. HEAD - NC/AT. EYES - PERRL with EOMI bilaterally. Sclera anicteric. Palpebral conjunctiva pink and moist with no injection noted. EARS - No deformities of external structures noted on gross examination bilaterally. No pain elicited with palpation of the tragus bilaterally. External auditory canals without discharge or otorrhea. Tympanic membranes pearly trotter without retraction or bulging. No fluid or purulent material visualized behind the TM. Handle of malleus, umbo, cone of light, pars tensa/flaccid all easily visualized. NOSE - Midline and without cyanosis. No epistaxis or purulent drainage noted. Septum midline without deviation or septal hematoma noted. MOUTH/OROPHARYNX - Without perioral cyanosis. Buccal mucosa pink and moist and without leukoplakia. Tongue midline with equal elevation of palate bilaterally. No tonsillar hypertrophy, erythema, or exudates noted. dentition noted. NECK - Neck with FROM. Supple to palpation. lymphadenopathy noted. No nuchal rigidity. LUNGS - Chest wall symmetric without accessory muscle use, intercostals retractions, or central cyanosis. Normal vesicular breath sounds CTA B/L. No wheezes, rales, or rhonchi appreciated. CARDIAC - RRR with S1/S2. No murmur, rubs, or gallops appreciated. ABDOMEN - Abdominal contour without pulsations or visible masses. BS normoactive all four quadrants. No tenderness, palpable masses, hepatosplenomegaly, or ascites noted. EXTREMITIES - No clubbing or peripheral cyanosis. No pretibial edema present. +3/5 radial, posterior tibial, and dorsalis pedis pulses palpated throughout. +5/5 strength noted in UE/LE bilaterally. NEUROLOGIC - Cranial nerves II through XII grossly intact. Sensory intact to light touch throughout. Patellar reflexes +2/4. PSYCH - A&Ox3 and cooperates fully with examiner. Pt is very pleasant and interacts well with examiner. Course Administered Medications Albuterol (Duoneb) 3 ml INH Q6R [facility] Stop: 11/19/19 13:29 Last Admin: 10/21/19 07:11 Dose: 3 ml Documented by: [id number] Admin: 10/21/19 01:04 Dose: 3 ml Documented by: [id number] Admin: 10/20/19 19:27 Dose: Not Given Documented by: [id number] Admin: 10/20/19 18:37 Dose: Not Given Documented by: [id number] Atorvastatin Calcium (Lipitor) 80 mg PO HS [facility] Stop: 11/19/19 20:59 Last Admin: 10/20/19 21:45 Dose: 80 mg Documented by: [id number] Budesonide (Pulmicort Respules) 0.5 mg INH BIDR [facility] Stop: 11/19/19 13:29 Last Admin: 10/21/19 07:11 Dose: 0.5 mg Documented by: [id number] Admin: 10/20/19 19:26 Dose: 0.5 mg Documented by: [id number] Admin: 10/20/19 18:37 Dose: Not Given Documented by: [id number] Digoxin (Lanoxin) 0.125 mg PO MoWeFr@1600 [facility] Stop: 11/19/19 15:59 Last Admin: 10/20/19 15:45 Dose: 0.125 mg Documented by: [id number] Ferrous Sulfate (Feosol) 325 mg PO QDB@0800 [facility] Stop: 11/20/19 07:59 Last Admin: 10/21/19 08:38 Dose: 325 mg Documented by: [id number] Finasteride (Proscar) 5 mg PO HS@1999 [facility] Stop: 11/19/19 19:59 Last Admin: 10/20/19 21:45 Dose: 5 mg Documented by: [id number] Formoterol Fumarate (Perforomist) 20 mcg INH BIDR [facility] Stop: 11/19/19 18:59 Last Admin: 10/21/19 07:11 Dose: 20 mcg Documented by: [id number] Admin: 10/20/19 19:26 Dose: 20 mcg Documented by: [id number] Furosemide (Lasix) 60 mg PO QAM@08 [facility] Stop: 11/20/19 07:59 Last Admin: 10/21/19 08:35 Dose: 60 mg Documented by: [id number] Gabapentin (Neurontin) 900 mg PO Q12H [facility] Stop: 11/19/19 19:59 Last Admin: 10/21/19 08:39 Dose: 900 mg Documented by: [id number] Admin: 10/20/19 21:43 Dose: 900 mg Documented by: [id number] Guaifenesin (Mucinex) 1,200 mg PO Q12 [facility] Stop: 11/19/19 20:59 Last Admin: 10/21/19 08:36 Dose: 1,200 mg Documented by: [id number] Admin: 10/20/19 21:44 Dose: 1,200 mg Documented by: [id number] Lactobacillus Acidophilus (Floranex) 1 tab PO QAM@08 [facility] Stop: 11/20/19 07:59 Last Admin: 10/21/19 08:34 Dose: 1 tab Documented by: [id number] Levofloxacin (Levaquin) 750 mg PO DAILY@08 [facility] Stop: 10/27/19 07:59 Last Admin: 10/21/19 08:46 Dose: 750 mg Documented by: [id number] Losartan Potassium (Cozaar) 12.5 mg PO DAILY [facility] Stop: 11/20/19 08:59 Last Admin: 10/21/19 08:35 Dose: 12.5 mg Documented by: [id number] Metoprolol Succinate (Toprol Xl) 50 mg PO DAILY@1999 [facility] Stop: 11/19/19 19:59 Last Admin: 10/20/19 21:44 Dose: 50 mg Documented by: [id number] Mirtazapine (Remeron) 15 mg PO HS@1999 [facility] Stop: 11/19/19 19:59 Last Admin: 10/20/19 21:46 Dose: 15 mg Documented by: [id number] Multivitamins (Multivitamin Tab) 1 tab PO QAM@0800 [facility] Stop: 11/20/19 07:59 Last Admin: 10/21/19 08:37 Dose: 1 tab Documented by: [id number] Neomycin/Polymyxin/Gramicidin (Neosporin) 2 drops OPR BID [facility] Stop: 11/19/19 20:59 Last Admin: 10/21/19 08:40 Dose: 2 drops Documented by: [id number] Admin: 10/20/19 21:46 Dose: 2 drops Documented by: [id number] Nystatin (Mycostatin) 5 ml PO 0800,1200,1600,1999 [facility] Stop: 10/30/19 15:59 Last Admin: 10/21/19 08:37 Dose: 5 ml Documented by: [id number] Admin: 10/20/19 21:46 Dose: 5 ml Documented by: [id number] Admin: 10/20/19 15:46 Dose: 5 ml Documented by: [id number] Pantoprazole Sodium (Protonix) 40 mg PO QAM@0800 [facility] Stop: 11/20/19 07:59 Last Admin: 10/21/19 08:38 Dose: 40 mg Documented by: [id number] Tamsulosin HCl (Flomax) 0.4 mg PO HS@1999 [facility] Stop: 11/19/19 19:59 Last Admin: 10/20/19 21:46 Dose: 0.4 mg Documented by: [id number] Discontinued Medications Albuterol (Ventolin Hfa) 2 puffs INH NOW ONE Stop: 10/20/19 08:55 Last Admin: 10/20/19 10:30 Dose: 2 puffs Documented by: [id number] Sodium Chloride (Nss 1000ml) 1,000 mls @ 999 mls/hr IV .Q1H1M ONE Stop: 10/20/19 11:10 Last Infusion: 10/20/19 11:27 Dose: 0 mls/hr Documented by: [id number] Admin: 10/20/19 10:30 Dose: 999 mls/hr Documented by: [id number] Cefepime HCl (Maxipime) 2,000 mg in 20 mls @ 5 mls/min IV NOW STA Stop: 10/20/19 10:13 Last Admin: 10/20/19 10:30 Dose: 5 mls/min Documented by: [id number] Vancomycin HCl 1,750 mg/ (Sodium Chloride) 535 mls @ 200 mls/hr IV NOW ONE Stop: 10/20/19 12:50 Last Infusion: 10/20/19 14:29 Dose: 0 mls/hr Documented by: [id number] Admin: 10/20/19 11:52 Dose: 200 mls/hr Documented by: [id number] Acetaminophen (Ofirmev) 1,000 mg in 100 mls @ 400 mls/hr IV NOW STA Stop: 10/20/19 10:26 Last Infusion: 10/20/19 10:31 Dose: 0 mls/hr Documented by: [id number] Admin: 10/20/19 10:31 Dose: 400 mls/hr Documented by: [id number] Levofloxacin/Dextrose (Levaquin/D5w) 750 mg in 150 mls @ 100 mls/hr IV NOW STA Stop: 10/20/19 11:39 Last Infusion: 10/20/19 11:52 Dose: 0 mls/hr Documented by: [id number] Admin: 10/20/19 10:31 Dose: 100 mls/hr Documented by: [id number] Methylprednisolone 125 mg/ (Syringe) 2 mls @ 1.5 mls/min IV Q8 [facility] Stop: 11/19/19 21:59 Last Admin: 10/21/19 07:10 Dose: 1.5 mls/min Documented by: [id number] Admin: 10/20/19 21:43 Dose: 1.5 mls/min Documented by: [id number] Methylprednisolone (Solumedrol) 60 mg IV Q12 [facility] Stop: 11/19/19 11:29 Last Admin: 10/20/19 11:54 Dose: 60 mg Documented by: [id number] Potassium Chloride (Klor-Con M20) 40 meq PO NOW ONE Stop: 10/21/19 08:16 Last Admin: 10/21/19 08:33 Dose: 40 meq Documented by: [id number] Critical Care Time I have personally spent greater than 30 minutes of critical care time in the direct management of this patient. This includes bedside care, interpretation of diagnostic studies, and testing, discussion with consultants, patient, and family members, and other required patient management activities. This 30 minutes is in excess of all separately billable procedures. Medical Decision Making Differential Diagnosis Reactive airway disease, pneumonia, pneumothorax, COPD, CHF, infections, cardiac ischemia, pulmonary embolism, musculoskeletal, gastrointestinal, as well as other pathologies. Medical Records Attestation: I reviewed the patient's medical records. Home Medications Current Medication List: was personally reviewed by me Laboratory Data Attestation: I reviewed the patient's lab results. Result diagrams: 10/21/19 06:49 10/21/19 06:49 Lab Results 10/20/19 10/20/19 10/20/19 Range/Units 09:10 09:10 09:10 WBC 4.53 L (4.8-10.8) K/uL RBC 3.55 L (4.7-6.1) M/uL Hgb 10.3 L (14.0-18.0) g/dL Hct 31.2 L (42-52) % MCV 87.9 (80-100) fL MCH 29.0 (25-34) pg MCHC 33.0 (32-36) g/dL RDW Std Deviation 56.7 H (36.4-46.3) fL RDW Coeff of Sonja 17.4 H (11.5-14.5) % Plt Count 80 L (130-400) K/uL MPV 10.5 H (7.4-10.4) fL Immature Gran % (Auto) 0.4 % Neut % (Auto) 62.9 % Lymph % (Auto) 32.5 % [place] % (Auto) 3.8 % Eos % (Auto) 0.0 % Baso % (Auto) 0.4 % Immature Gran # (Auto) 0.02 (0.00-0.02) K/uL Neut # (Auto) 2.85 (1.4-6.5) K/uL Lymph # (Auto) 1.47 (1.2-3.4) K/uL [place] # (Auto) 0.17 (0.11-0.59) K/uL Eos # (Auto) 0.00 (0-0.5) K/uL Baso # (Auto) 0.02 (0-0.2) K/uL Platelet Estimate Decreased L (Normal) Ovalocytes 1+ Acanthocytes (Spur) 1+ ESR 40 H (0-14) mm/hr PT 12.5 H (9.0-12.0) Seconds INR 1.2 H (0.9-1.1) APTT 28.4 (21.0-31.0) Seconds PTT Ratio 1.0 Sodium (136-145) mmol/L Potassium (3.5-5.1) mmol/L Chloride (98-107) mmol/L Carbon Dioxide (21-32) mmol/L Anion Gap (3-11) BUN (7-18) mg/dl Creatinine (0.6-1.4) mg/dl Est Cr Clr Drug Dosing ml/min Est GFR ( Amer) Est GFR (Non-Af Amer) BUN/Creatinine Ratio (10-20) Glucose (70-99) mg/dl Lactate (0.4-2.0) mmol/L Calcium (8.5-10.1) mg/dl Magnesium (1.8-2.4) mg/dl Ferritin (8-388) ng/ml Total Bilirubin (0.2-1) mg/dl AST (15-37) U/L ALT (12-78) U/L Alkaline Phosphatase (45-117) U/L Lactate Dehydrogenase (87-241) U/L Total Creatine Kinase (39-308) U/L CK-MB (CK-2) (0.5-3.6) ng/ml CK/CKMB % Calc (0-3.0) Troponin I (0-0.045) ng/ml C-Reactive Protein (0-0.29) mg/dl NT-Pro-B Natriuret Pep (0-1800) pg/ml Total Protein (6.4-8.2) gm/dl Albumin (3.4-5.0) gm/dl Globulin (2.5-4.0) gm/dl Albumin/Globulin Ratio (0.9-2) Procalcitonin (0-0.5) ng/ml Adenovirus (PCR) (NotDetected) B. pertussis DNA (PCR) (NotDetected) B.parapertussis DNA PCR (NotDetected) C. pneumoniae DNA (PCR) (NotDetected) Coronavirus OC43 (PCR) (NotDetected) Coronavirus HKU1 (PCR) (NotDetected) Coronavirus 229E (PCR) (NotDetected) COVID-19 PCR (Negative) Coronavirus NL63 (PCR) (NotDetected) Human Metapneumovir PCR (NotDetected) Influenza Type A (PCR) (Neg) Influenza Type B (PCR) (Neg) M. pneumoniae (PCR) (NotDetected) Parainfluenza 1 (PCR) (NotDetected) Parainfluenza 2 (PCR) (NotDetected) Parainfluenza 3 (PCR) (NotDetected) Parainfluenza 4 (PCR) (NotDetected) RSV (PCR) (NotDetected) Entero/Rhino (PCR) (NotDetected) 10/20/19 10/20/19 10/20/19 Range/Units 09:10 09:10 09:10 WBC (4.8-10.8) K/uL RBC (4.7-6.1) M/uL Hgb (14.0-18.0) g/dL Hct (42-52) % MCV (80-100) fL MCH (25-34) pg MCHC (32-36) g/dL RDW Std Deviation (36.4-46.3) fL RDW Coeff of Sonja (11.5-14.5) % Plt Count (130-400) K/uL MPV (7.4-10.4) fL Immature Gran % (Auto) % Neut % (Auto) % Lymph % (Auto) % [place] % (Auto) % Eos % (Auto) % Baso % (Auto) % Immature Gran # (Auto) (0.00-0.02) K/uL Neut # (Auto) (1.4-6.5) K/uL Lymph # (Auto) (1.2-3.4) K/uL [place] # (Auto) (0.11-0.59) K/uL Eos # (Auto) (0-0.5) K/uL Baso # (Auto) (0-0.2) K/uL Platelet Estimate (Normal) Ovalocytes Acanthocytes (Spur) ESR (0-14) mm/hr PT (9.0-12.0) Seconds INR (0.9-1.1) APTT (21.0-31.0) Seconds PTT Ratio Sodium 134 L (136-145) mmol/L Potassium 4.0 (3.5-5.1) mmol/L Chloride 96 L (98-107) mmol/L Carbon Dioxide 35 H (21-32) mmol/L Anion Gap 3.0 (3-11) BUN 34 H (7-18) mg/dl Creatinine 0.95 (0.6-1.4) mg/dl Est Cr Clr Drug Dosing 70.1 ml/min Est GFR ( Amer) 86.7 Est GFR (Non-Af Amer) 74.8 BUN/Creatinine Ratio 35.6 H (10-20) Glucose 98 (70-99) mg/dl Lactate 2.3 H* (0.4-2.0) mmol/L Calcium 8.8 (8.5-10.1) mg/dl Magnesium 2.2 (1.8-2.4) mg/dl Ferritin 157.6 (8-388) ng/ml Total Bilirubin 0.5 (0.2-1) mg/dl AST 19 (15-37) U/L ALT 25 (12-78) U/L Alkaline Phosphatase 113 (45-117) U/L Lactate Dehydrogenase 226 (87-241) U/L Total Creatine Kinase 35 L (39-308) U/L CK-MB (CK-2) 1.8 (0.5-3.6) ng/ml CK/CKMB % Calc 5.1 H (0-3.0) Troponin I 0.118 H* (0-0.045) ng/ml C-Reactive Protein 1.74 H (0-0.29) mg/dl NT-Pro-B Natriuret Pep 4730 H (0-1800) pg/ml Total Protein 6.2 L (6.4-8.2) gm/dl Albumin 2.5 L (3.4-5.0) gm/dl Globulin 3.7 (2.5-4.0) gm/dl Albumin/Globulin Ratio 0.7 L (0.9-2) Procalcitonin (0-0.5) ng/ml Adenovirus (PCR) (NotDetected) B. pertussis DNA (PCR) (NotDetected) B.parapertussis DNA PCR (NotDetected) C. pneumoniae DNA (PCR) (NotDetected) Coronavirus OC43 (PCR) (NotDetected) Coronavirus HKU1 (PCR) (NotDetected) Coronavirus 229E (PCR) (NotDetected) COVID-19 PCR (Negative) Coronavirus NL63 (PCR) (NotDetected) Human Metapneumovir PCR (NotDetected) Influenza Type A (PCR) (Neg) Influenza Type B (PCR) (Neg) M. pneumoniae (PCR) (NotDetected) Parainfluenza 1 (PCR) (NotDetected) Parainfluenza 2 (PCR) (NotDetected) Parainfluenza 3 (PCR) (NotDetected) Parainfluenza 4 (PCR) (NotDetected) RSV (PCR) (NotDetected) Entero/Rhino (PCR) (NotDetected) 10/20/19 10/20/19 10/20/19 Range/Units 09:10 09:10 09:10 WBC (4.8-10.8) K/uL RBC (4.7-6.1) M/uL Hgb (14.0-18.0) g/dL Hct (42-52) % MCV (80-100) fL MCH (25-34) pg MCHC (32-36) g/dL RDW Std Deviation (36.4-46.3) fL RDW Coeff of Sonja (11.5-14.5) % Plt Count (130-400) K/uL MPV (7.4-10.4) fL Immature Gran % (Auto) % Neut % (Auto) % Lymph % (Auto) % [place] % (Auto) % Eos % (Auto) % Baso % (Auto) % Immature Gran # (Auto) (0.00-0.02) K/uL Neut # (Auto) (1.4-6.5) K/uL Lymph # (Auto) (1.2-3.4) K/uL [place] # (Auto) (0.11-0.59) K/uL Eos # (Auto) (0-0.5) K/uL Baso # (Auto) (0-0.2) K/uL Platelet Estimate (Normal) Ovalocytes Acanthocytes (Spur) ESR (0-14) mm/hr PT (9.0-12.0) Seconds INR (0.9-1.1) APTT (21.0-31.0) Seconds PTT Ratio Sodium (136-145) mmol/L Potassium (3.5-5.1) mmol/L Chloride (98-107) mmol/L Carbon Dioxide (21-32) mmol/L Anion Gap (3-11) BUN (7-18) mg/dl Creatinine (0.6-1.4) mg/dl Est Cr Clr Drug Dosing ml/min Est GFR ( Amer) Est GFR (Non-Af Amer) BUN/Creatinine Ratio (10-20) Glucose (70-99) mg/dl Lactate (0.4-2.0) mmol/L Calcium (8.5-10.1) mg/dl Magnesium (1.8-2.4) mg/dl Ferritin (8-388) ng/ml Total Bilirubin (0.2-1) mg/dl AST (15-37) U/L ALT (12-78) U/L Alkaline Phosphatase (45-117) U/L Lactate Dehydrogenase (87-241) U/L Total Creatine Kinase (39-308) U/L CK-MB (CK-2) (0.5-3.6) ng/ml CK/CKMB % Calc (0-3.0) Troponin I (0-0.045) ng/ml C-Reactive Protein (0-0.29) mg/dl NT-Pro-B Natriuret Pep (0-1800) pg/ml Total Protein (6.4-8.2) gm/dl Albumin (3.4-5.0) gm/dl Globulin (2.5-4.0) gm/dl Albumin/Globulin Ratio (0.9-2) Procalcitonin 0.13 (0-0.5) ng/ml Adenovirus (PCR) Not Detected (NotDetected) B. pertussis DNA (PCR) Not Detected (NotDetected) B.parapertussis DNA PCR Not Detected (NotDetected) C. pneumoniae DNA (PCR) Not Detected (NotDetected) Coronavirus OC43 (PCR) Not Detected (NotDetected) Coronavirus HKU1 (PCR) Not Detected (NotDetected) Coronavirus 229E (PCR) Not Detected (NotDetected) COVID-19 PCR NEGATIVE (Negative) Coronavirus NL63 (PCR) Not Detected (NotDetected) Human Metapneumovir PCR Not Detected (NotDetected) Influenza Type A (PCR) Neg for Influ A Not Detected (Neg) Influenza Type B (PCR) Neg for Influ B Not Detected (Neg) M. pneumoniae (PCR) Not Detected (NotDetected) Parainfluenza 1 (PCR) Not Detected (NotDetected) Parainfluenza 2 (PCR) Not Detected (NotDetected) Parainfluenza 3 (PCR) Not Detected (NotDetected) Parainfluenza 4 (PCR) Not Detected (NotDetected) RSV (PCR) Not Detected (NotDetected) Entero/Rhino (PCR) Not Detected (NotDetected) 10/20/19 Range/Units 11:21 WBC (4.8-10.8) K/uL RBC (4.7-6.1) M/uL Hgb (14.0-18.0) g/dL Hct (42-52) % MCV (80-100) fL MCH (25-34) pg MCHC (32-36) g/dL RDW Std Deviation (36.4-46.3) fL RDW Coeff of Sonja (11.5-14.5) % Plt Count (130-400) K/uL MPV (7.4-10.4) fL Immature Gran % (Auto) % Neut % (Auto) % Lymph % (Auto) % [place] % (Auto) % Eos % (Auto) % Baso % (Auto) % Immature Gran # (Auto) (0.00-0.02) K/uL Neut # (Auto) (1.4-6.5) K/uL Lymph # (Auto) (1.2-3.4) K/uL [place] # (Auto) (0.11-0.59) K/uL Eos # (Auto) (0-0.5) K/uL Baso # (Auto) (0-0.2) K/uL Platelet Estimate (Normal) Ovalocytes Acanthocytes (Spur) ESR (0-14) mm/hr PT (9.0-12.0) Seconds INR (0.9-1.1) APTT (21.0-31.0) Seconds PTT Ratio Sodium (136-145) mmol/L Potassium (3.5-5.1) mmol/L Chloride (98-107) mmol/L Carbon Dioxide (21-32) mmol/L Anion Gap (3-11) BUN (7-18) mg/dl Creatinine (0.6-1.4) mg/dl Est Cr Clr Drug Dosing ml/min Est GFR ( Amer) Est GFR (Non-Af Amer) BUN/Creatinine Ratio (10-20) Glucose (70-99) mg/dl Lactate 1.4 (0.4-2.0) mmol/L Calcium (8.5-10.1) mg/dl Magnesium (1.8-2.4) mg/dl Ferritin (8-388) ng/ml Total Bilirubin (0.2-1) mg/dl AST (15-37) U/L ALT (12-78) U/L Alkaline Phosphatase (45-117) U/L Lactate Dehydrogenase (87-241) U/L Total Creatine Kinase (39-308) U/L CK-MB (CK-2) (0.5-3.6) ng/ml CK/CKMB % Calc (0-3.0) Troponin I (0-0.045) ng/ml C-Reactive Protein (0-0.29) mg/dl NT-Pro-B Natriuret Pep (0-1800) pg/ml Total Protein (6.4-8.2) gm/dl Albumin (3.4-5.0) gm/dl Globulin (2.5-4.0) gm/dl Albumin/Globulin Ratio (0.9-2) Procalcitonin (0-0.5) ng/ml Adenovirus (PCR) (NotDetected) B. pertussis DNA (PCR) (NotDetected) B.parapertussis DNA PCR (NotDetected) C. pneumoniae DNA (PCR) (NotDetected) Coronavirus OC43 (PCR) (NotDetected) Coronavirus HKU1 (PCR) (NotDetected) Coronavirus 229E (PCR) (NotDetected) COVID-19 PCR (Negative) Coronavirus NL63 (PCR) (NotDetected) Human Metapneumovir PCR (NotDetected) Influenza Type A (PCR) (Neg) Influenza Type B (PCR) (Neg) M. pneumoniae (PCR) (NotDetected) Parainfluenza 1 (PCR) (NotDetected) Parainfluenza 2 (PCR) (NotDetected) Parainfluenza 3 (PCR) (NotDetected) Parainfluenza 4 (PCR) (NotDetected) RSV (PCR) (NotDetected) Entero/Rhino (PCR) (NotDetected) Imaging Data Radiologist's Impression: [facility], [place] [phone] XRay Report Patient: THOMAS SCHMITT Date: 10/20/19 MR#: [id number]: [address] Acct ID:[id number]: Date: 1940[facility] Zip: [place] [address] Age: 79Location: ED Sex: M Room/Bed: Att Phy:Diagnosis: SHORTNESS OF BREATH Karemn Phy: Ari Lora MDService Date: 10/20/19 Fam Phy:Interpreting Phy: Antony Hernandez MD Admit Phy: Ordering Phy: Jean-Paul Taylor MD cc: ~ XR chest 1V portable CLINICAL HISTORY: SEPSIS COMPARISON STUDY: 03/20/2009 FINDINGS: The heart is borderline enlarged. 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 Postsurgical changes are present on the right with right apical surgical clips. There are right upper and mid lung z one airspace opacities suspicious for a pneumonia. There is mild bibasilar interstitial thickening. There is underlying pulmonary edema.[ IMPRESSION: Right lung airspace opacity suspicious for pneumonia. Clinical and radiographic follow-up is recommended. ACT 112: Negative or not required by law. Electronically signed by: Antony Hernandez M.D. 10/20/2019 10:01 AM Dictated: 10/20/19 0958 Transcribed: 10/20/19 0958 [place], [place] [phone] CT Scan Report Patient: THOMAS SCHMITT Date: 10/20/19 MR#: [id number]: [id number] GENAR[address] A[address]IN Acct ID:[id number]: Date: 1940[facility] Zip: [place] [address] Age: 79Location: 2S Sex: M Room/Bed: [facility] Att Phy: Lindsey Haines MDDiagnosis: PNEUMONIA,SEPSIS Karmen [facility] Date: 10/20/19 Fam Phy: Ari Lora MDInterpreting Phy: Bipin Ramirez MD Admit Phy: Lindsey Haines MD Ordering Phy: Lindsey Haines MD cc: ~ CT SCAN OF THE CHEST WITHOUT IV CONTRAST CLINICAL HISTORY: Pneumonia. Lung cancer. COMPARISON STUDY: Chest x-ray dated 10/20/2019. Chest CT dated 06/22/2012. TECHNIQUE: CT scan of the thorax was performed from the thoracic inlet to the upper abdomen. Images are reviewed in the axial, sagittal, and coronal planes. IV contrast was not administered for this examination as per the referring clinician. A dose lowering technique was utilized adhering to the principles of ALARA. Examination is degraded by motion artifact, as well as by streak artifact from a right shoulder arthroplasty and cardiac AICD. CT DOSE: 649.65 mGycm FINDINGS: Thyroid: Imaged portions of the thyroid gland are normal in size and a ttenuation. Thoracic aorta: There is atherosclerotic calcification of the thoracic aorta, which is normal in caliber and demonstrates standard 3-vessel arch anatomy. Heart: A 3-lead cardiac AICD is present in the left chest wall. The heart is enlarged noting a small pericardial effusion. The coronary arteries are densely calcified. There is diminished attenuation of the cardiac blood pool as compared to the myocardium suggesting anemia. Lungs and pleural spaces: Advanced emphysematous change is identified. There is volume loss in the right lung, with postoperative and fibrotic change at the right apex. This is similar in appearance to the 2013 examination. There are trace pleural effusions. Layering secretions are noted within the distal trachea and the mainstem bronchi. There is patchy groundglass consolidation identified in the right upper and middle lobes, with dependent consolidation seen at the lung bases. A 2 cm irregular nodular focus of consolidation is seen within the paramediastinal left upper lobe on image #80. A similar 1.8 cm focus of more solid-appearing consolidation is seen more inferiorly in the left upper lobe anteriorly on image #148. Scattered calcified granulomas are noted. Mediastinum: There are calcified mediastinal lymph nodes. No pathologically enlarged mediastinal nodes are identified. Mela: Not well assessed without IV contrast. Axillae: There is no axillary lymphadenopathy. Upper abdomen: There is a small hiatal hernia. An abdominal aortic stent graft is partially visualized. Skeletal structures: The skeletal structures are osteopenic. Degenerative change is noted throughout the thoracic spine. There is a mild superior endplate compression deformity of L1. No lytic or blastic bony lesions are seen. A right shoulder arthroplasty is in place. Chronic postoperative/posttraumatic changes noted in the right sided ribs. IMPRESSION: 1. Cardiomegaly and advanced emphysema. 2. Postoperative and fibrotic change at the right apex is similar to the 2013 examination. 3. Multifocal airspace consolidation as above is typical in appearance for pneumonia/aspiration pneumonitis. 4. There are 2 foci of more nodular appearing consolidation in the left lung which measure up to 2 cm. A follow-up chest CT is recommended in 1-3 months time to document complete resolution and to exclude the possibility of underlying neoplasm. 5. Trace pleural effusions. 6. Layering secretions are noted in the distal trachea and mainstem bronchi. This is nonspecific but could be seen in the setting of aspiration. 7. Additional findings as above. ACT 112: Negative or not required by law. Electronically signed by: Bipin Ramirez M.D. 10/20/2019 2:23 PM Dictated: 10/20/19 1414 Transcribed: 10/20/19 141 ECG Data Attestation: I personally reviewed and interpreted this ECG as follows: Indication: + other (fever) Rate (beats per minute): 100 Rhythm: + other (atrial sensed Ventricular paced) ECG [place]ont: + Normal ECG ST segments: no ST depression and no ST elevation Comparison ECG Date: from (09/11/2007) Change: the following changes noted (Pacemaker replaced NSR) MDM Narrative This is an 79-year-old male who presents emergency department. The patient is currently on chemo for lung cancer. He is hypoxic here. His COVID test is negative. He was pancultured and started on broad-spectrum antibiotics. His lactate is also slightly elevated. He was given multiple boluses of normal saline however this was given sparingly as the patient has a history of congestive heart failure and appears to be volume overloaded. I did discuss the case with the hospitalist service who did agree to admit the patient. Patient is in agreement with the treatment plan. Patient was seen and evaluated as above in room C5. Review was performed of nursing notes and vital signs. I did review pertinent previous visits and patient history. After obtaining a thorough history and physical examination the above work up was performed. While in the department, I personally reevaluated the patient several times and each time the patient was found to be resting comfortably. The patient was educated upon management, educated upon todays findings/results, educated upon i mportance of follow up from today's visit, educated upon symptoms in which to return, had questions answered prior to discharge, verbalized understanding, and was discharged home in good condition. An order was placed for continuous cardiac monitoring. The monitor shows a rate of 73 with Normal Sinus rhythm. The patient was evaluated during the global COVID-19 pandemic, and that diagnosis was suspected/considered upon their initial presentation. Their evaluation, treatment and testing was consistent with current guidelines for patients who present with complaints or symptoms that may be related to COVID- 19. Impression & Plan Pneumonia, SIRS (systemic inflammatory response syndrome) Discharge Plan Visit Data *Final* Discharge Date/Time: 10/20/19 12:33 Chief Complaint: Shortness of Breath/Dyspnea ED Provider: Jean-Paul Taylor Discharge Problem: Pneumonia, SIRS (systemic inflammatory response syndrome) Patient Disposition: Admitted As Inpatient Discharge Instructions Interventions: ED Discharge Assessment Last Done: 10/20/19 12:33 Discharge Problem: Pneumonia Qualifiers: Pneumonia type: due to unspecified organism Laterality: unspecified laterality Lung location: unspecified part of lung Qualified Code(s): J18.9 - Pneumonia, unspecified organism
--- NOTE | 2019-10-20 14:25 | CT Scan Report ---
CT SCAN OF THE CHEST WITHOUT IV CONTRAST CLINICAL HISTORY: Pneumonia. Lung cancer. COMPARISON STUDY: Chest x-ray dated 10/20/2019. Chest CT dated 06/22/2012. TECHNIQUE: CT scan of the thorax was performed from the thoracic inlet to the upper abdomen. Images are reviewed in the axial, sagittal, and coronal planes. IV contrast was not administered for this ex amination as per the referring clinician. A dose lowering technique was utilized adhering to the angel thompson of KATHLEEN. Examination is degraded by motion artifact, as well as by streak artifact from a ri ght shoulder arthroplasty and cardiac AICD. CT DOSE: 649.65 mGycm FINDINGS: Thyroid: Imaged portions of the thyroid gland are normal in size and attenuation. Thoracic aorta: There is atherosclerotic calcification of the thoracic aorta, which is normal in [place] and demonstrates standard 3-vessel arch anatomy. Heart: A 3-lead cardiac AICD is present in the left chest wall. The heart is enlarged noting a small pericardial effusion. The coronary arteries are densely calcified. There is diminished attenuation of the cardiac blood pool as compared to the myocardium suggesting anemia. Lungs and pleural spaces: Advanced emphysematous change is identified. There is volume loss in the ri ght lung, with postoperative and fibrotic change at the right apex. This is similar in appearance to the 2013 examination. There are trace pleural effusions. Layering secretions are noted within the dis daryn trachea and the mainstem bronchi. There is patchy groundglass consolidation identified in the rig ht upper and middle lobes, with dependent consolidation seen at the lung bases. A 2 cm irregular nodu lar focus of consolidation is seen within the paramediastinal left upper lobe on image #80. A similar 1.8 cm focus of more solid-appearing consolidation is seen more inferiorly in the left upper lobe an teriorly on image #148. Scattered calcified granulomas are noted. Mediastinum: There are calcified mediastinal lymph nodes. No pathologically enlarged mediastinal node s are identified. Mela: Not well assessed without IV contrast. Axillae: There is no axillary lymphadenopathy. Upper abdomen: There is a small hiatal hernia. An abdominal aortic stent graft is partially visualize d. Skeletal structures: The skeletal structures are osteopenic. Degenerative change is noted throughout the thoracic spine. There is a mild superior endplate compression deformity of L1. No lytic or blasti c bony lesions are seen. A right shoulder arthroplasty is in place. Chronic postoperative/posttraumat ic changes noted in the right sided ribs. IMPRESSION: 1. Cardiomegaly and advanced emphysema. 2. Postoperative and fibrotic change at the right apex is similar to the 2013 examination. 3. Multifocal airspace consolidation as above is typical in appearance for pneumonia/aspiration pneum onitis. 4. There are 2 foci of more nodular appearing consolidation in the left lung which measure up to 2 cm . A follow-up chest CT is recommended in 1-3 months time to document complete resolution and to exclu de the possibility of underlying neoplasm. 5. Trace pleural effusions. 6. Layering secretions are noted in the distal trachea and mainstem bronchi. This is nonspecific but could be seen in the setting of aspiration. 7. Additional findings as above. ACT 112: Negative or not required by law. Electronically signed by: Bipin Ramirez M.D. 10/20/2019 2:23 PM
--- NOTE | 2019-10-20 14:26 | Pharmacy Report ---
Pharmacy Abx Initial Consult - Date of Service October 20, 2019 - Pharmacy Dosing Scope Date of Consult: 10/20/2019 Consultation requested by: Dr. Haines Pharmacy is consulted to initiate vancomycin IV/PO dosing therapy, order appropriate labs and adjust drug dose/frequency. - Subjective The patient is a 79 year old M admitted on 10/20/19 11:29. - Objective Height: 6 ft 3 in Weight: 81.1 kg Vital Signs (Past 12hrs): Vital Signs Temp Pulse Pulse Resp BP BP Pulse Ox 10/20/19 12:40 36.7 C 75 22 93/53 L 94 10/20/19 12:15 72 22 97 10/20/19 12:00 71 20 94/48 L 97 10/20/19 11:45 85 28 H 96 10/20/19 11:30 93 H 19 98 10/20/19 11:25 87 22 97 10/20/19 11:24 87 15 97/77 L 98 10/20/19 11:15 90 26 H 98 10/20/19 11:01 85 21 97 10/20/19 11:00 88 20 97 10/20/19 10:45 92 H 21 92 10/20/19 10:33 83 23 98/59 L 95 10/20/19 10:30 87 21 10/20/19 10:15 84 27 H 10/20/19 10:00 85 27 H 10/20/19 09:46 75 21 93/53 L 10/20/19 09:45 84 18 10/20/19 09:30 90 17 10/20/19 09:15 103 H 20 92 10/20/19 09:03 89 21 92 10/20/19 08:46 96 10/20/19 08:26 38.1 C H 91 H 24 108/40 L 96 Lab Results (24hrs): Laboratory Tests (24 Hours) 10/20/19 10/20/19 10/20/19 09:10 09:10 09:10 WBC Neut # (Auto) ESR 40 H Creatinine 0.95 Est Cr Clr Drug Dosing 70.1 Total Creatine Kinase 35 L C-Reactive Protein 1.74 H Procalcitonin 0.13 10/20/19 09:10 WBC 4.53 L Neut # (Auto) 2.85 ESR Creatinine Est Cr Clr Drug Dosing Total Creatine Kinase C-Reactive Protein Procalcitonin Micro Results: 10/20/19 09:41 Aerobic Blood Culture - Pending Blood Anaerobic Blood Culture - Pending 10/20/19 09:10 Aerobic Blood Culture - Pending Blood Anaerobic Blood Culture - Pending - Risk Factors for Resistance * Hospitalization for 48 hours or more within the past 90 days * Immunocompromised (chronic steroid therapy, chemotherapy, immunomodulators) * Antimicrobial use within the last 90 days - Assessment & Plan Assessment 79 year old M male admitted from [facility] with worsening shortness of breath, fever. Patient has extensive PMH including history of lung cancer with right upper lobectomy/XRT/chemotherapy, multiple myeloma on revlimid and dexamethasone, COPD, home O2 use, CHF with AICD. Patient has multiple hospital stays/rehab since the May of 2019 with recurrent pneumonia. WBC 4.5 netu 2.8, Febrile 38.1 C in ED, lactate initially elevated at 2.3, procal 0.13. MRSA nasal swab negative. Starting vancomycin/cefepime/levofloxacin for pulmonary source. Plan Vancomycin IV * Estimated PK Parameters: Vd 0.7 L/kg, Blake 0.0625 hr-1, t1/2 11 hr * Loading dose: 1750 mg (21.5 mg/kg) * Maintenance dose: 1250 mg IV (15 mg/kg) every 12hours * Patient meets criteria for vancomycin AUC dosing nomogram AUC/ALYSSA is the preferred PK/PD target for vancomycin Target AUC/ALYSSA = 400-600 AUC guided dosing is effective and associated with decreased risk of nephrotoxicity * Trough ordered for 10/21 @ 1130 * A less than traditional dose and/or extended dosing interval has/have been selected due to likelihood of drug accumulation in obese patient/patient with h/o CKD. Cefepime and levofloxacin also dosed appropriately for renal function. Pharmacy will continue to follow and will adjust dose/frequency as necessary. Thank you.
--- NOTE | 2019-10-20 14:58 | Pulmonary Consultation ---
Date of Consultation October 20, 2019 Assessment & Plan (1) Abnormal CT scan of lung: Impression: 79-year-old male with complicated prior pulmonary history including a history of lung cancer with histology and staging unavailable/undetermined status post chemo and radiation therapy. He has patchy infiltrates with increased interstitial markings concerning for interstitial lung disease which could be secondary to an idiopathic etiology (NSIP), treatment with Revlimid, treatment effect from his prior chemotherapy and radiation therapy, or potential other etiologies including chronic aspiration. Unfortunately we do not have access to his prior films to determine the chronicity of his current infiltrates however he has normal white blood cell count, normal procalcitonin, and negative bio fire would argue against infectious etiology currently. Recommendations: 1. Abnormal CT scan: I had a long discussion with the patient regarding options. We could proceed with bronchoscopy with bronchioloalveolar lavage to try and exclude infection although I think that is risky given his medical comorbidities and may not alter management. Alternatively, we could proceed with empiric therapy treating all reversible etiologies including atypical infection, inflammation/pneumonitis, and fluid overload related to diastolic heart failure. After careful consideration, the patient has elected to pursue a conservative approach. We will proceed with higher dose steroids, appropriate antibiotics (stop cefepime and vancomycin, cont levaquin), and continue diuresis. Will check limited serological evaluation. Check swallow evaluation for possible aspiration. Stop Revlimid. Patient is osuna cytopenic and correlation with prior CBC would be helpful. 2. History of lung cancer: The patient will require close radiographic surveillance or correlation with his prior CT scans to determine if the findings noted on today's CT scan represent new abnormalities or are chronic in nature. Correlation with outpatient PFTs is also recommended. 3. COPD: Continue aggressive bronchodilators. We will add Mucinex to his regiment. Flutter valve may also be beneficial to improve pulmonary clearance given the mild degree of bronchiectasis noted on his CT scan. 4. Acute on chronic hypoxemic respiratory failure: Continue supplemental oxygen titrated to keep saturations 88 to 92%. 5. Agree with cardiac evaluation and repeating echocardiogram. We will continue to follow with you. Feel free to contact us if questions (2) COPD (chronic obstructive pulmonary disease): (3) Diastolic heart failure: (4) Interstitial lung disease: History of Present Illness Attending Physician: Lindsey Haines MD History of Present Illness Asked by hospitalist to assist in management of this patient with hypoxemic respiratory failure and pulmonary infiltrates. History is obtained from discussion with the patient as well as review the electronic medical record. Patient is an 79-year-old male who is followed by a piano instructor in [place]. He states he is followed for lung cancer and COPD. The patient had right upper lobe lung cancer resected several years ago and was treated with adjuvant chemoradiation therapy. He does not know his histological type or staging and we have no records. He states he completed a full course of chemotherapy and radiation therapy. He states that then several years later he was found to have additional tumors along his mediastinum. He states these were also biopsied and he was treated with additional mediastinal radiation. He does not believe these were related to his primary lung cancer but again we do not have definitive results. He is chronically hypoxemic and has a history of underlying heart problems although these are not well delineated. He recently established care with a new plate drying machine tender. He is also under the care of a cloth shrinking supervisor for multiple myeloma and has been maintained on Revlimid as well as dexamethasone for approximately 18 months. He states he recently had a follow- up with his oncologist and was advised that his counts were stable. Those results are also not available to review. The patient is intermittently been in and out of the hospital for respiratory issues. He has been pertinent travel history as noted in his HPI. He was just dismissed from the hospital in [place] to [facility] re[facility]. He was found to be hypoxemic and was transported to the emergency room here from there. The patient is experiencing some respiratory difficulties. He states he is experiencing some increasing shortness of breath. He is coughing but is unable to expectorate phlegm. No wheezing. He did receive steroids apparently at [facility] prior to transfer to the hospital here. The patient has not recently had bronchoscopy. No surgical lung biopsy. No path reports are available. Allergies Allergy/AdvReac Type Severity Reaction Status Date / Time Penicillins Allergy Mild Verified 10/20/19 10:12 Sulfa (Sulfonamide Allergy Mild Verified 10/20/19 10:12 Antibiotics) LOCALANESTHETIC Allergy Mild TOLERATES Uncoded 10/20/19 10:12 LIDOCAINE Home Medications Home Medications Medication Instructions Recorded Confirmed Type Lactobacillus acidoph-L.bulgar 1 tab PO QAM 10/20/19 10/20/19 History [Floranex] Neosporin Drops 2 drp OPB BID 10/20/19 10/20/19 History apixaban [Eliquis] 5 mg PO BID 10/20/19 10/20/19 History arformoterol [Brovana] 15 mcg INHALATION BID 10/20/19 10/20/19 History atorvastatin 80 mg PO HS 10/20/19 10/20/19 History budesonide 0.5 mg INHALATION BID 10/20/19 10/20/19 History dexamethasone 6 mg PO MO 10/20/19 10/20/19 History digoxin 125 mcg PO MOWEFR 10/20/19 10/20/19 History digoxin 250 mcg PO SUTUTHSA 10/20/19 10/20/19 History ferrous sulfate 325 mg PO QDB 10/20/19 10/20/19 History finasteride [Proscar] 5 mg PO HS 10/20/19 10/20/19 History furosemide 60 mg PO QAM 10/20/19 10/20/19 History gabapentin See Rx Instructions .ROUTE .COMPLEX 10/20/19 10/20/19 History ipratropium-albuterol 3 ml INHALATION Q6H PRN 10/20/19 10/20/19 History lenalidomide [Revlimid] 10 mg PO QAM 10/20/19 10/20/19 History losartan 25 mg PO DAILY 10/20/19 10/20/19 History metoprolol succinate 50 mg PO DAILY@1900 10/20/19 10/20/19 History mirtazapine 15 mg PO HS 10/20/19 10/20/19 History multivitamin 1 tab PO QAM 10/20/19 10/20/19 History nystatin 5 ml PO QID 10/20/19 10/20/19 History pantoprazole 40 mg PO QAM 10/20/19 10/20/19 History prednisone 10 mg PO .TAPER DOSE 10/20/19 10/20/19 History tamsulosin 0.4 mg PO HS 10/20/19 10/20/19 History Patient History Medical History (Updated 10/20/19 @ 15:05 by Prabhjot Posada MD) BPH (benign prostatic hyperplasia) Chronic anticoagulation Chronic respiratory failure with hypoxia Chronic systolic CHF (congestive heart failure) COPD (chronic obstructive pulmonary disease) Depression GERD (gastroesophageal reflux disease) HTN (hypertension), benign Hyperlipidemia Lung cancer Multiple myeloma Nonischemic cardiomyopathy Pancytopenia Paroxysmal atrial fibrillation Postherpetic neuralgia Surgical History History of bursectomy History of lobectomy of lung History of lumbosacral spine surgery History of permanent cardiac pacemaker placement History of tonsillectomy Status post reverse total arthroplasty of right shoulder Family History Other Family history non-contributory Social History (Updated 10/20/19 @ 13:49 by Lindsey Haines MD) Preferred Language: Occitan Communication Ability: Effective Tobacco Grader Required: No Beliefs That Will Affect Care: None marital status: / Current Living Situation: Rehab Other Information That Helps Us Care for You: No Feels Safe at Home: Yes Safety Concerns: Feels Safe At This Time Smoking Status: Former smoker Smoking End Date: 1999 ; Hx Alcohol Use: No Hx Substance Use: No Review of Systems Review of Systems: Complete 12 point review of systems completed with the patient. Please refer to admission H&P as well as my HPI. No additions Physical Exam Constitutional: WD/WN, vitals as above Neck: trachea midline, no thyromegaly Respiratory: + labored breathing Auscultation: + rales Mildly tachypneic with nasal flaring. Increased respiratory rate. Crackles present throughout the right lung with diffuse rhonchi Cardiovascular: RRR, no murmur, no edema Gastrointestinal (Abdomen): normal bowel sounds, soft, nontender, no hepatosplenomegaly Musculoskeletal: Extremities: extremities normal to inspection Skin: no rashes, warm and dry Neurologic: Nonfocal exam Lymphatic: no cervical lymphadenopathy Results & Data Results & Data ([facility]) Vital Signs (Past 12 Hours) Vital Signs Temp Pulse Pulse Resp BP BP Pulse Ox 10/20/19 12:40 36.7 C 75 22 93/53 L 94 10/20/19 12:15 72 22 97 10/20/19 12:00 71 20 94/48 L 97 10/20/19 11:45 85 28 H 96 10/20/19 11:30 93 H 19 98 10/20/19 11:25 87 22 97 10/20/19 11:24 87 15 97/77 L 98 10/20/19 11:15 90 26 H 98 10/20/19 11:01 85 21 97 10/20/19 11:00 88 20 97 10/20/19 10:45 92 H 21 92 10/20/19 10:33 83 23 98/59 L 95 10/20/19 10:30 87 21 10/20/19 10:15 84 27 H 10/20/19 10:00 85 27 H 10/20/19 09:46 75 21 93/53 L 10/20/19 09:45 84 18 10/20/19 09:30 90 17 10/20/19 09:15 103 H 20 92 10/20/19 09:03 89 21 92 10/20/19 08:46 96 10/20/19 08:26 38.1 C H 91 H 24 108/40 L 96 Laboratory Results 10/20/19 09:10 10/20/19 09:10 ESR elevated at 40 INR 1.2 BNP 4730 Procalcitonin 0.13 Bio fire swab negative COVID-19 negative Nasal MRSA negative Diagnostic Findings CT of the chest from today was independently reviewed and compared to prior CT scan from 06/22/2012. There are extensive subpleural interstitial markings with bronchiectasis noted throughout the right lung. The patient does have some patchy infiltrates in the right lung as well as some nodular densities at the left lung and bibasilar nodular densities as well. Prior films are not av ailable to determine chronicity of these lesions. PG Care Time/CCT Total # of Minutes Spent Total Time Spent with Patient: Total time spent is greater than 50% in coordination of care (as documented) at patient's floor/unit and/or counseling patient: Coding Level of Care Code 72185 Inpt Consult Level [address] scan of lung R91.8 COPD (chronic obstructive pulmonary disease) J44.9 Diastolic heart failure I50.30 Interstitial lung disease J84.9 Time Spent (min) 55
[2019-10-20] MEDS: DIGOXIN 0.125 MG TAB PO SCH (15:45)
[2019-10-20] MEDS: NYSTATIN SUSP 500,000 U/5 ML UDC PO SCH ×2 (15:46→21:46)
[2019-10-20] MEDS ORDERED: CEFEPIME 2,000 MG in SYRINGE 7.5 ML IV SCH (16:00)
--- NOTE | 2019-10-20 17:16 | XCELERA ---
[id number] \\[id number]}___[id number]
[2019-10-20 17:47] LABS: Appearance Urine Clear (Clear); Bacteria Urine Automated Negative (Negative); Bilirubin Urine Negative (Negative); Blood Urine 1+ (Negative); Color Urine Yellow; Epithelial Cell Urine Auto 0-5 /lpf (0-5); Glucose Urine UA Negative (Negative); Ketones Urine Negative (Negative); Leukocyte Esterase Urine 2+ (Negative); Nitrite Urine Negative (Negative); Protein Urine Trace (Negative); RBC Urine Automated 0-4 /hpf (0-4); Specific Gravity Urine 1.015 (1.000-1.030); Urobilinogen Urine Negative (Negative); WBC Urine Automated >30 /hpf (0-5); pH Urine 5.5 (4.5-7.5)
[2019-10-20] MEDS: BUDESONIDE 0.5 MG/2 ML VIAL (PULMICORT) INH SCH ×2 (18:37→19:26)
[2019-10-20] MEDS: ALBUT/IPRATROP 3MG/0.5MG NEB 3 ML VIAL INH SCH ×2 (18:37→19:27)
[2019-10-20] MEDS: FORMOTEROL 20 MCG/2 ML VIAL INH SCH (19:26)
[2019-10-20] MEDS: GABAPENTIN 300 MG CAP PO SCH (21:43)
[2019-10-20] MEDS: methylPREDNISolone 125 MG in SYRINGE 0 ML IV SCH (21:43)
[2019-10-20] MEDS: guaiFENesin 600 MG TABCR PO SCH (21:44)
[2019-10-20] MEDS: METOPROLOL SUCC 50MG EXT REL TAB PO SCH (21:44)
[2019-10-20] MEDS: FINASTERIDE 5 MG TAB PO SCH (21:45)
[2019-10-20] MEDS: ATORVASTATIN 40 MG TAB PO SCH (21:45)
[2019-10-20] MEDS: MIRTAZAPINE TAB 15 MG TAB PO SCH (21:46)
[2019-10-20] MEDS: TAMSULOSIN HCL 0.4 MG CAP PO SCH (21:46)
[2019-10-20] MEDS: NEOMYCIN/POLYMYXIN/GRAMICIDIN 10 ML BTL OPR SCH (21:46)
[2019-10-21] MEDS ORDERED: VANCOMYCIN HCL 1,250 MG in SODIUM CHLORIDE 0.9% 250 ML IV SCH
[2019-10-21] MEDS: ALBUT/IPRATROP 3MG/0.5MG NEB 3 ML VIAL INH SCH ×4 (01:04→20:03)
[2019-10-21 07:05] LABS: Mean Corpuscular Hgb Conc 32.5 g/dL (32-36)
[2019-10-21 07:10] LABS: Hematocrit (blood only) 31.1 % (42-52); Hemoglobin 10.1 g/dL (14.0-18.0); Mean Corpuscular Hemoglobin 28.3 pg (25-34); Mean Corpuscular Volume 87.1 fL (80-100); RDW Coefficient of Variation 17.4 % (11.5-14.5); RDW Standard Deviation 55.2 fL (36.4-46.3); Red Blood Count 3.57 M/uL (4.7-6.1); White Blood Count 4.82 K/uL (4.8-10.8)
[2019-10-21] MEDS: methylPREDNISolone 125 MG in SYRINGE 0 ML IV SCH (07:10)
[2019-10-21] MEDS: BUDESONIDE 0.5 MG/2 ML VIAL (PULMICORT) INH SCH ×2 (07:11→19:43)
[2019-10-21] MEDS: FORMOTEROL 20 MCG/2 ML VIAL INH SCH ×2 (07:11→19:43)
[2019-10-21 07:47] LABS: Albumin Level 2.4 gm/dl (3.4-5.0); BUN Creatinine Ratio 28.4 (10-20); Calcium 8.3 mg/dl (8.5-10.1); Creatinine Clr Calc Pharmacy 55.8 ml/min; Est GFR (Non-African American) 56.9; Magnesium 2.5 mg/dl (1.8-2.4); Potassium 3.4 mmol/L (3.5-5.1)
[2019-10-21 07:49] LABS: Albumin Globulin Ratio 0.6 (0.9-2); Bilirubin,Total 0.6 mg/dl (0.2-1); Globulin 3.9 gm/dl (2.5-4.0); Total Protein 6.3 gm/dl (6.4-8.2)
[2019-10-21 08:12] LABS: Acanthocytes 1+; Basophils # (auto) 0.01 K/uL (0-0.2); Basophils % (auto) 0.2 %; Echinocytes 1+; Immature Granulocytes # (auto) 0.02 K/uL (0.00-0.02); Immature Granulocytes % (auto) 0.4 %; Lymphocytes # (auto) 0.55 K/uL (1.2-3.4); Lymphocytes % (auto) 11.4 %; Mean Platelet Volume 11.2 fL (7.4-10.4); Monocytes # (auto) 0.09 K/uL (0.11-0.59); Monocytes % (auto) 1.9 %; Neutrophils # (auto) 4.15 K/uL (1.4-6.5); Neutrophils % (auto) 86.1 %; Ovalocytes 1+; Platelet Count 84 K/uL (130-400)
[2019-10-21] MEDS ORDERED: POTASSIUM CHLORIDE 20 MEQ TABCR PO ONE (08:15)
[2019-10-21] MEDS: LACTOBACILLUS ACIDOPHILUS (FLORANEX) TAB PO SCH (08:34)
[2019-10-21] MEDS: FUROSEMIDE 20 MG TAB PO SCH (08:35)
[2019-10-21] MEDS: LOSARTAN POTASSIUM 25 MG TAB PO SCH (08:35)
[2019-10-21] MEDS: guaiFENesin 600 MG TABCR PO SCH ×2 (08:36→21:11)
[2019-10-21] MEDS: NYSTATIN SUSP 500,000 U/5 ML UDC PO SCH (08:37)
[2019-10-21] MEDS: MULTIVITAMIN TAB PO SCH (08:37)
[2019-10-21] MEDS: PANTOprazole 40 MG TAB PO SCH (08:38)
[2019-10-21] MEDS: FERROUS SULFATE 325 MG TAB PO SCH (08:38)
[2019-10-21] MEDS: GABAPENTIN 300 MG CAP PO SCH ×2 (08:39→21:13)
[2019-10-21] MEDS: NEOMYCIN/POLYMYXIN/GRAMICIDIN 10 ML BTL OPR SCH ×2 (08:40→21:14)
[2019-10-21] MEDS: levoFLOXacin 750 MG TAB PO SCH (08:46)
--- NOTE | 2019-10-21 08:56 | Pulmonology Progress Note ---
Date of Service October 21, 2019 Assessment & Plan (1) Abnormal CT scan of lung: Impression: 79-year-old male with complicated prior pulmonary history including a history of lung cancer with histology and staging unavailable/undetermined status post chemo and radiation therapy. He has patchy infiltrates with increased interstitial markings concerning for interstitial lung disease which could be secondary to an idiopathic etiology (NSIP), treatment with Revlimid, treatment effect from his prior chemotherapy and radiation therapy, or potential other etiologies including chronic aspiration. Unfortunately we do not have access to his prior films to determine the chronicity of his current infiltrates however he has normal white blood cell count, normal procalcitonin, and negative bio fire would argue against infectious etiology currently. Recommendations: 1. Abnormal CT scan: Pursuing a conservative course as the etiology of his interstitial lung disease and bronchiectasis is somewhat unclear. He is being treated with empiric steroids and antibiotics and appears significantly improved today. Await swallow evaluation for occult aspiration. His work-up will largely depend on review of his prior imaging to determine chronicity of the current findings. He is established with a pc tech back home who he can continue to see. His serological evaluation is currently pending but as of yet does not demonstrate significant abnormality. Would continue to hold Revlimid. Okay to transition to oral steroids. Would place on Bactrim prophylaxis until prednisone dose is below 20 mg a day. At the least he should have a follow-up CT scan in 6 to 8 weeks 2. History of lung cancer: The patient will require close radiographic surveillance or correlation with his prior CT scans to determine if the findings noted on today's CT scan represent new abnormalities or are chronic in nature. Correlation with outpatient PFTs is also recommended. 3. COPD: Continue aggressive bronchodilators. Continue Mucinex and flutter valve 4. Acute on chronic hypoxemic respiratory failure: Continue supplemental oxygen titrated to keep saturations 88 to 92%. 5. Agree with cardiac evaluation and repeating echocardiogram. We will continue to follow with you. Feel free to contact us if questions (2) COPD (chronic obstructive pulmonary disease): (3) Diastolic heart failure: (4) Interstitial lung disease: Admission and Anticipated Discharge Date Admission Date: October 20, 2019 Subjective Patient seen and examined. He believes his breathing is better than yesterday. He is using the flutter valve. He coughed up some yellow phlegm. He is ambulatory but weak. He is down to his baseline oxygen requirement. Review of Systems Review of Systems: Unchanged from prior Physical Exam Constitutional: WD/WN, vitals as above Neck: trachea midline, no thyromegaly Respiratory: no respiratory distress and no labored breathing Auscultation: + rales Improved rhonchi from yesterday Cardiovascular: RRR, no murmur, no edema Gastrointestinal (Abdomen): normal bowel sounds, soft, nontender, no hepatosplenomegaly Musculoskeletal: Extremities: extremities normal to inspection Skin: no rashes, warm and dry Lymphatic: no cervical lymphadenopathy Results & Data Results & Data ([facility]) Vital Signs (Past 12 Hours) Vital Signs Temp Pulse Pulse Resp BP Pulse Ox 10/21/19 07:40 36.4 C L 73 18 100/56 L 96 10/21/19 07:11 51 L 19 97 10/21/19 03:54 36.3 C L 87 22 100/64 97 10/21/19 01:05 87 16 96 10/20/19 23:30 36.4 C L 80 18 98/58 L 96 Laboratory Results 10/21/19 06:49 10/21/19 06:49 CPK 30 C-reactive protein 1.7 Aldolase pending Urinalysis with 1+ blood but no significant red blood cells on micro AMBER and rheumatoid factor pending Anti-CCP negative Diagnostic Findings No new imaging PG Care Time/CCT Total # of Minutes Spent Total Time Spent with Patient: Total time spent is greater than 50% in coordination of care (as documented) at patient's floor/unit and/or counseling patient: Coding Level of Care Code 18332 Subseq Hosp Care Lvl [address] scan of lung R91.8 COPD (chronic obstructive pulmonary disease) J44.9 Diastolic heart failure I50.30 Interstitial lung disease J84.9
[2019-10-21] MEDS ORDERED: Nursing to Pharmacy Communication ONE ×2 (09:39→16:34)
--- NOTE | 2019-10-21 09:47 | Cardiology Consultation ---
Date of Consultation October 21, 2019 Assessment & Plan (1) Chronic respiratory failure with hypoxia: Diagnosed with pneumonia on admission continue antibiotics, steroids/nebs, oxygen per hospitalist. Multiple recent admission for respiratory failure/COPD exacerbation He appears euvolemic, possibly dry on exam. Not indicative of acute CHF exacerbation (2) Chronic atrial fibrillation: Rates elevated on admission, now improved. Underlying paced with PVC's also noted. Continue metoprolol and digoxin. COnsider titration of beta edison should BP allow. continue coumadin (3) Elevated troponin: Not indicative of ACS. No active chest pain. Likely secondary to demand ischemia from afib RVR on admission, respriatory distress/hypoxia. Stable echo findings with LVEF 35% on admission. (4) Chronic left ventricular systolic heart failure: Appears euvolemic based on exam findings. (5) ICD (implantable cardioverter-defibrillator) in place: overdue for device interrogation. per [employer] review (I did not see the report myself) - appropriate function and battery longevity, chronic afib. borderline elevated rates. Case discussed with Dr. Cunha. Patient has frequent ectopy and rapid rates with ventricular pacing. He may need higher dose beta edison, but his BP is borderline low right now. Will monitor. Continue metoprolol and digoxin. His echo remains unchanged from prior, with LVEF 35% Continue current CHF and cardiac meds. Will need enrolled in device clinic as outpatient. He recently established with [facility] at [facility] and already has f/u at that location. Supervising Physician Co-Signing Physician Notes Patient seen and examined at the bedside. Admitted with pneumonia. Denies orthopnea, PND, edema, or weight gain. Elevated heart rate noted on admission. ICD interrogation demonstrates normal function and battery life. Activity settings reviewed. Heart rate with exertion programmed up to 95 bpm. Heart rate has trended downward since admission. He is currently resting comfortably. Notes cough without sputum production. No fever or chills. Requesting liberalization of his fluid intake. Requesting an additional "boost" shake daily to help gain weight. Denies signs/symptoms of GI/ blood loss. Reports frequent bruising of his upper extremities associated with chronic Eliquis use. PE: VSS. Gen: NAD, AAO x 3. Heart: Irregular, normal S1S2, no murmur. Lungs: Diminished breath sounds bilaterally. Faint end expiratory wheeze. No rales or rhonchi. Ext: + Muscle wasting, no clubbing, cyanosis or edema A/P: Agree with above PA-C history, physical exam, assessment and plan. Appreciate pulmonary medicine input. CT scan with evidence of interstitial lung disease. Potential treatment options discussed via pulmonary consult. He does not examine to be overtly volume overloaded at this time. Continue current maintenance, outpatient dose of Lasix 60 mg daily. I will increase his daily fluid intake to 2 L per patient request. Continue to monitor fluid balance, daily weight, GFR. I will continue to monitor heart rate response via telemetry. Patient may benefit from additional beta-edison, however, blood pressure is borderline hypotensive at this time. Recommend continuing current dose of metoprolol and digoxin. Consider adjusting activity rate response programming of ICD pending telemetry review in a.m. History of Present Illness Attending Physician: Maureen Hart MD History of Present Illness Patient is a complex 79-year-old male who presented to [facility] with complaints of worsening shortness of breath. Per review of records, he has been hospitlizatied multiple times at [facility] over the last few months for respiratory failure/COPD. He recently established with [facility] cardiology at that facility, to follow up with ENZO Herring with [facility] in [place]. He was at [facility] for rehab when he developed worsening/recurrent SOB and sent to [place] for evaluation. Per review of chart, history includes: 1. Non-ischemic cardiomyopathy 2. Hypertension 4. Atrial fibrillation, chronic 5. Chronic anticoagulation 6. s/p upgrade to dual chamber ICD 2013 from his prior PPM of 2007 - lost to follow-up by device clinic 7. History of lung cancer with right upper lobe lobectomy, XRT and chemo 8. COPD 9. Chronic oxygen therapy 10. Former smoker 11. History of multiple myeloma now on Revlimid 12. BPH 13. AAA s/p repair Apparently patient underwent shoulder surgery in Jun 2019. Since that time, he has experienced worsening of his respiratory status, requiring frequent admissions for COPD exacerbation and possible HF. At his most recent hospitalization, his metoprolol was increased and his losartan was added for evidence based HF medications. Upon arrival to ER he was mildly tachycardic with afib RVR and ventricular pacing. His chest xray was consistent with underlying pneumonia, likely hospital acquired given recent inpatient settings. He has been started on antibiotic therapy with nebs and steroids. Pulmonology was consulted. At time of consult patient reports his SOB has improved from yesterday. He reports congestion in his chest, unable to produce sputum. No orthopnea, PND or edema. NO weight gain. No dizziness, syncope or near syncope. No chest pain. Appears euvolemic. His cardiac enzymes were borderline increased, consistent with underlying cardiomyopathy. LVEF 35%, similar to prior echo at [facility]. Allergies Allergy/AdvReac Type Severity Reaction Status Date / Time Penicillins Allergy Mild Verified 10/20/19 10:12 Sulfa (Sulfonamide Allergy Mild Verified 10/20/19 10:12 Antibiotics) LOCALANESTHETIC Allergy Mild TOLERATES Uncoded 10/20/19 10:12 LIDOCAINE Home Medications Home Medications Medication Instructions Recorded Confirmed Type Lactobacillus acidoph-L.bulgar 1 tab PO QAM 10/20/19 10/20/19 History [Floranex] Neosporin Drops 2 drp OPB BID 10/20/19 10/20/19 History apixaban [Eliquis] 5 mg PO BID 10/20/19 10/20/19 History arformoterol [Brovana] 15 mcg INHALATION BID 10/20/19 10/20/19 History atorvastatin 80 mg PO HS 10/20/19 10/20/19 History budesonide 0.5 mg INHALATION BID 10/20/19 10/20/19 History dexamethasone 6 mg PO MO 10/20/19 10/20/19 History digoxin 125 mcg PO MOWEFR 10/20/19 10/20/19 History digoxin 250 mcg PO SUTUTHSA 10/20/19 10/20/19 History ferrous sulfate 325 mg PO QDB 10/20/19 10/20/19 History finasteride [Proscar] 5 mg PO HS 10/20/19 10/20/19 History furosemide 60 mg PO QAM 10/20/19 10/20/19 History gabapentin See Rx Instructions .ROUTE .COMPLEX 10/20/19 10/20/19 History ipratropium-albuterol 3 ml INHALATION Q6H PRN 10/20/19 10/20/19 History lenalidomide [Revlimid] 10 mg PO QAM 10/20/19 10/20/19 History losartan 25 mg PO DAILY 10/20/19 10/20/19 History metoprolol succinate 50 mg PO DAILY@1900 10/20/19 10/20/19 History mirtazapine 15 mg PO HS 10/20/19 10/20/19 History multivitamin 1 tab PO QAM 10/20/19 10/20/19 History nystatin 5 ml PO QID 10/20/19 10/20/19 History pantoprazole 40 mg PO QAM 10/20/19 10/20/19 History prednisone 10 mg PO .TAPER DOSE 10/20/19 10/20/19 History tamsulosin 0.4 mg PO HS 10/20/19 10/20/19 History Patient History Medical History BPH (benign prostatic hyperplasia) Chronic anticoagulation Chronic respiratory failure with hypoxia Chronic systolic CHF (congestive heart failure) COPD (chronic obstructive pulmonary disease) Depression GERD (gastroesophageal reflux disease) HTN (hypertension), benign Hyperlipidemia Lung cancer Multiple myeloma Nonischemic cardiomyopathy Pancytopenia Paroxysmal atrial fibrillation Postherpetic neuralgia Surgical History History of bursectomy History of endovascular stent graft for abdominal aortic aneurysm History of lobectomy of lung History of lumbosacral spine surgery History of permanent cardiac pacemaker placement History of tonsillectomy Status post reverse total arthroplasty of right shoulder Family History Other Family history non-contributory Social History Preferred Language: Korean Communication Ability: Effective Tutoring Assistant Required: No Beliefs That Will Affect Care: None marital status: / Current Living Situation: Rehab Other Information That Helps Us Care for You: No Feels Safe at Home: Yes Safety Concerns: Feels Safe At This Time Smoking Status: Former smoker Smoking End Date: 1999 ; Hx Alcohol Use: No Hx Substance Use: No Review of Systems Review of Systems: All systems reviewed & are unremarkable except as noted in HPI & below Physical Exam Constitutional: WD/WN, vitals as above + ill appearing; no acute distress Respiratory: no respiratory distress Auscultation: + diminished lung sounds and + rhonchi Cardiovascular: Rate/Rhythm: + irregularly irregular Heart Sounds: no mu rmur Vessels: no JVD Extremities: no edema Results & Data ([facility]) Vital Signs (Past 12 Hours) Vital Signs Temp Pulse Pulse Resp BP Pulse Ox 10/21/19 07:40 36.4 C L 73 18 100/56 L 96 10/21/19 07:11 51 L 19 97 10/21/19 03:54 36.3 C L 87 22 100/64 97 10/21/19 01:05 87 16 96 10/20/19 23:30 36.4 C L 80 18 98/58 L 96 Diagnostic Findings EKG on arrival - Chest CT report reviewed, dated 10/20/19: IMPRESSION: 1. Cardiomegaly and advanced emphysema. 2. Postoperative and fibrotic change at the right apex is similar to the 2013 examination. 3. Multifocal airspace consolidation as above is typical in appearance for pneumonia/aspiration pneumonitis. 4. There are 2 foci of more nodular appearing consolidation in the left lung which measure up to 2 cm. A follow-up chest CT is recommended in 1-3 months time to document complete resolution and to exclude the possibility of underlying neoplasm. 5. Trace pleural effusions. 6. Layering secretions are noted in the distal trachea and mainstem bronchi. This is nonspecific but could be seen in the setting of aspiration. 7. Additional findings as above 2D echocardiogram report reviewed dated October 20, 2019: Left ventricular systolic function is moderately reduced. LVEF 35-40%. Borderline right ventricular enlargement. Right atrium is mildly dilated. Mild MR. RV systolic function is elevated at 30 to 40 mm of mercury. Prior CARDIAC STUDIES: 2D ECHO 07/25/19 study is limited quality due to poor cardiac windows; LVEF 30-34%; large sized septal, anteroseptal, anterior, inferior, posterior, and l ateral wall motion abnormality with hypokinesis to dyskinesis of the segments.; small sized posterior aneurysm; apex not well visualized; septal motion is abnormal consistent with RV pacer; RV cavity moderately dilated with RV systolic function mildly reduced and pacemaker wire in RV; mild MR present; small anterior loculated pericardial effusion present without tamponade (no significant change in pericardial effusion compared to 04/30/2019)
[2019-10-21] MEDS: APIXABAN 5 MG TABLET PO SCH ×2 (10:20→21:09)
[2019-10-21] MEDS: predniSONE 20 MG TAB PO SCH ×2 (10:21→21:09)
[2019-10-21] MEDS: GABAPENTIN 600 MG TAB PO SCH (12:33)
--- NOTE | 2019-10-21 12:38 | Electrocardiogram Report ---
Test Reason : Blood Pressure : / mmHG Vent. Rate : 100 BPM Atrial Rate : 100 BPM P-R Int : 136 ms QRS Dur : 176 ms QT Int : 406 ms P-R-T Axes : 085 -87 080 degrees QTc Int : 523 ms Ventricular-paced rhythm Probable underlying atrial fibrillation Abnormal ECG When compared with ECG of 11-SEP-2007 10:39, Electronic ventricular pacemaker has replaced Sinus rhythm Vent. rate has increased BY 44 BPM Confirmed by Keon Avelar ([id number]) on 10/21/2019 12:37:39 PM Referred By: ED Confirmed By:Keon Avelar
--- NOTE | 2019-10-21 13:07 | Hospitalist Progress Note ---
Date of Service October 21, 2019 Assessment & Plan (1) SIRS (systemic inflammatory response syndrome): 79 y/o M with PMH of lung ca in 2005 s/p R upper lobectomy/XRT/chemotherapy with recurrence near the mediastinum and repeat XRT/chemotherapy in 2008, multiple myeloma currently on Revlimid and dexamethasone, chronic respiratory failure with hypoxia using 3L NC O2 at bedtime and with exertion during the daytime, COPD, chronic systolic CHF with an EF of 31% s/p PPM/AICD for nonischemic cardiomyopathy, HTN, postherpetic neuralgia of the right side of the face and eye, paroxysmal AFib on Eliquis, GERD, BPH, depression/insomnia, and hyperlipidemia, who has had a complex recent medical history with multiple admissions to OSH's for recurrent PNA presents for same after 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 Sepsis 2/2 PNA/Possible UTI -Admit to PCU -on admission, requiring 6L NC, tachycardic, borderline hypotensive, positive lactate, fever 38.1C -U/A: 2+ LE, >30 WBC -CXR: Right lung airspace opacity suspicious for pneumonia. -CT Chest: Multifocal airspace consolidation as above is typical in appearance for pneumonia/aspiration pneumonitis. Layering secretions are noted in the distal trachea and mainstem bronchi. This is nonspecific but could be seen in the setting of aspiration -schedule follow-up CT scan in 6 to 8 weeks -SLC eval pending -neg bio fire and rapid respiratory viral panel -d/c IV vancomycin (MRSA neg) and IV cefepime,. Cont PO Levaquin . Bactrim prophylaxis as below -urine culture, blood cultures, sputum culture pending -appreciate Pulmonology consult given complex history and recurrent pneumonia. 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 Continue Mucinex and flutter valve -Bactrim prophylaxis for PCP until prednisone dose is below 20 mg a day Acute on Chronic respiratory failure with hypoxia -on admission, requiring 6L NC, now back at baseline 3L NC--At home is on 3 L nasal cannula at at bedtime and with exertion during the day -Wean down to home dose of O2 as able to -Treating with his usual bronchodilators, inhaled corticosteroids. IV steroids switched to PO 20mg BID Elevated troponin -on admission, troponin was mildly elevated at 0.118, 0.097, 0.081 -ECG showed atrial sensed and ventricular paced rhythm -review of scanned in cardiology records, he had a normal cardiac catheterization in the last few years and has a nonischemic cardiomyopathy -likely demand ischemia in the setting of sepsis, pneumonia, Afib w/RVR -ECHO this admission: LV systolic fxn moderately reduced. EF 35-40%. RA mildly dilated. Mild MR. Paroxysmal atrial fibrillation -rates better controlled now compared to admission -Continue rate control with metoprolol, digoxin. Can titrate metoprolol moving forward if necessary -Cont Eliquis as pt not pursing more invasive bronchoscopy procedure Chronic systolic CHF/Nonischemic cardiomyopathy -ICD in place since 2013 -frequent small runs of VT initially in ED -euvolemic/maybe dry at present -Daily weights, strict I's and O's -Continue home Lasix 60 mg once daily and give IV Lasix if needed -Continue Toprol-XL, losartan -ECHO reviewed as above -Appreciate Cardiology consult to help manage CHF in the setting of severe cardiomyopathy HTN -Continue home Toprol-XL and losartan Lung cancer -Status post right upper lobectomy in 2005 with subsequent XRT/chemotherapy with recurrence near the mediastinum on the right in 2008 again treated with chemotherapy and XRT -Follows with oncology at [facility] Multiple myeloma -Currently on Revlimid once daily and dexamethasone 6 mg on Mondays -Hold Revlimid while acutely ill -Follows with oncology at [facility] Pancytopenia -Likely 2/2 Revlimid therapy - holding due to acute illness -Daily CBC. Transfuse as needed Postherpetic neuralgia- Right eye -Continue home gabapentin doses GERD -Continue PPI BPH -Continue tamsulosin and finasteride Depression -Cont mirtazapine 15 mg at bedtime, recently started at rehab few days ago FEN/GI: Low Na 2g, Fluid Restrict 1800ml DVT prophylaxis: GissellequSHANNAN jarquins Full Code Dispo: Telemetry. PT/OT evaluations placed. Appreciate CM consult Admission and Anticipated Discharge Date Admission Date: October 20, 2019 Supervising Physician Co-Signing Physician Notes Resident Physician Supervision Note: I independently interviewed and examined the patient and verified the son history and physical, reviewed labs and image studies, discussed the case with the resident Dr. Lora and agree with the findings and care plan. Subjective 79 yo M found in bed this AM in NAD. No reported overnight events. No F/N/V/D. States breathing feels better. At baseline O2 requirement. Pt with no other acute concerns or complaints. Review of Systems Review of Systems: All systems reviewed & are unremarkable except as noted in HPI & below Physical Exam Constitutional: WD/WN, vitals as above + frail appearing Eyes: + eyelid abnormality (R eye ptosis) ENMT: external ear and nose normal, oropharynx normal Respiratory: normal respiratory effort; no respiratory distress Auscultation: + rhonchi (RLL) Cardiovascular: Rate/Rhythm: + irregularly irregular Chest (Breasts): Chest: + pacemaker Gastrointestinal (Abdomen): normal bowel sounds, soft, nontender, no hepatosplenomegaly Skin: no rashes, warm and dry Psychiatric: A+Ox3, euthymic affect Results & Data Results & Data ([facility]) Vital Signs (Past 12 Hours) Vital Signs Temp Pulse Pulse Resp BP Pulse Ox 10/21/19 11:44 36.4 C L 95 H 18 102/67 99 10/21/19 07:40 36.4 C L 73 18 100/56 L 96 10/21/19 07:11 51 L 19 97 10/21/19 03:54 36.3 C L 87 22 100/64 97 10/21/19 01:05 87 16 96 Laboratory Results Laboratory Results - last 24 hr 10/20/19 10/20/19 10/20/19 14:56 14:56 16:45 WBC RBC Hgb Hct MCV MCH MCHC RDW Std Deviation RDW Coeff of Sonja Plt Count MPV Immature Gran % (Auto) Neut % (Auto) Lymph % (Auto) Taney % (Auto) Eos % (Auto) Baso % (Auto) Immature Gran # (Auto) Neut # (Auto) Lymph # (Auto) Taney # (Auto) Eos # (Auto) Baso # (Auto) Ovalocytes Echinocytes Acanthocytes (Spur) Sodium Potassium Chloride Carbon Dioxide Anion Gap BUN Creatinine Est Cr Clr Drug Dosing Est GFR ( Amer) Est GFR (Non-Af Amer) BUN/Creatinine Ratio Glucose Calcium Magnesium Total Bilirubin AST ALT Alkaline Phosphatase Total Creatine Kinase 30 L Troponin I 0.097 H* Total Protein Albumin Globulin Albumin/Globulin Ratio Aldolase Urine Color Yellow Urine Appearance Clear Urine pH 5.5 Ur Specific [place] 1.015 Urine Protein Trace H Urine Glucose (UA) Negative Urine Ketones Negative Urine Blood 1+ H Urine Nitrite Negative Urine Bilirubin Negative Urine Urobilinogen Negative Ur Leukocyte Esterase 2+ H Urine WBC (Auto) >30 H Urine RBC (Auto) 0-4 U Hyaline Cast (Auto) 1-5 U Epithel Cells (Auto) 0-5 Urine Bacteria (Auto) Negative Rheumatoid Factor Cycl Citrul Peptide IgG AMBER Screen 10/20/19 10/20/19 10/20/19 21:14 21:14 21:14 WBC RBC Hgb Hct MCV MCH MCHC RDW Std Deviation RDW Coeff of Sonja Plt Count MPV Immature Gran % (Auto) Neut % (Auto) Lymph % (Auto) [place] % (Auto) Eos % (Auto) Baso % (Auto) Immature Gran # (Auto) Neut # (Auto) Lymph # (Auto) Taney # (Auto) Eos # (Auto) Baso # (Auto) Ovalocytes Echinocytes Acanthocytes (Spur) Sodium Potassium Chloride Carbon Dioxide Anion Gap BUN Creatinine Est Cr Clr Drug Dosing Est GFR ( Amer) Est GFR (Non-Af Amer) BUN/Creatinine Ratio Glucose Calcium Magnesium Total Bilirubin AST ALT Alkaline Phosphatase Total Creatine Kinase Troponin I 0.081 H* Total Protein Albumin Globulin Albumin/Globulin Ratio Aldolase Pending Urine Color Urine Appearance Urine pH Ur Specific [place] Urine Protein Urine Glucose (UA) Urine Ketones Urine Blood Urine Nitrite Urine Bilirubin Urine Urobilinogen Ur Leukocyte Esterase Urine WBC (Auto) Urine RBC (Auto) U Hyaline Cast (Auto) U Epithel Cells (Auto) Urine Bacteria (Auto) Rheumatoid Factor Pending Cycl Citrul Peptide IgG < 0.40 AMBER Screen 10/20/19 10/21/19 10/21/19 21:14 06:49 06:49 WBC 4.82 RBC 3.57 L Hgb 10.1 L Hct 31.1 L MCV 87.1 MCH 28.3 MCHC 32.5 RDW Std Deviation 55.2 H RDW Coeff of Sonja 17.4 H Plt Count 84 L MPV 11.2 H Immature Gran % (Auto) 0.4 Neut % (Auto) 86.1 Lymph % (Auto) 11.4 Taney % (Auto) 1.9 Eos % (Auto) 0.0 Baso % (Auto) 0.2 Immature Gran # (Auto) 0.02 Neut # (Auto) 4.15 Lymph # (Auto) 0.55 L Taney # (Auto) 0.09 L Eos # (Auto) 0.00 Baso # (Auto) 0.01 Ovalocytes 1+ Echinocytes 1+ Acanthocytes (Spur) 1+ Sodium 136 Potassium 3.4 L Chloride 98 Carbon Dioxide 31 Anion Gap 8.0 BUN 34 H Creatinine 1.19 Est Cr Clr Drug Dosing 55.8 Est GFR ( Amer) 66.0 Est GFR (Non-Af Amer) 56.9 BUN/Creatinine Ratio 28.4 H Glucose 130 H Calcium 8.3 L Magnesium 2.5 H Total Bilirubin 0.6 AST 14 L ALT 24 Alkaline Phosphatase 86 Total Creatine Kinase Troponin I Total Protein 6.3 L Albumin 2.4 L Globulin 3.9 Albumin/Globulin Ratio 0.6 L Aldolase Urine Color Urine Appearance Urine pH Ur Specific [place] Urine Protein Urine Glucose (UA) Urine Ketones Urine Blood Urine Nitrite Urine Bilirubin Urine Urobilinogen Ur Leukocyte Esterase Urine WBC (Auto) Urine RBC (Auto) U Hyaline Cast (Auto) U Epithel Cells (Auto) Urine Bacteria (Auto) Rheumatoid Factor Cycl Citrul Peptide IgG AMBER Screen Pending Medications Administered Current Inpatient Medications Acetaminophen (Tylenol) 650 mg PO Q4H PRN PRN Reason: Pain or Fever Stop: 11/19/19 12:53 Albuterol (Duoneb) 3 ml INH Q6R [facility] Stop: 11/19/19 13:29 Last Admin: 10/21/19 07:11 Dose: 3 ml Documented by: Apixaban (Eliquis) 5 mg PO BID [facility] Stop: 11/20/19 08:59 Last Admin: 10/21/19 10:20 Dose: 5 mg Documented by: Atorvastatin Calcium (Lipitor) 80 mg PO [facility] Stop: 11/19/19 20:59 Last Admin: 10/20/19 21:45 Dose: 80 mg Documented by: Budesonide (Pulmicort Respules) 0.5 mg INH BIDR [facility] Stop: 11/19/19 13:29 Last Admin: 10/21/19 07:11 Dose: 0.5 mg Documented by: Digoxin (Lanoxin) 0.25 mg PO SuTuThSa@1600 [facility] Stop: 11/20/19 15:59 Digoxin (Lanoxin) 0.125 mg PO MoWeFr@1600 [facility] Stop: 11/19/19 15:59 Last Admin: 10/20/19 15:45 Dose: 0.125 mg Documented by: Ferrous Sulfate (Feosol) 325 mg PO QDB@08 [facility] Stop: 11/20/19 07:59 Last Admin: 10/21/19 08:38 Dose: 325 mg Documented by: Finasteride (Proscar) 5 mg PO HS@1999 [facility] Stop: 11/19/19 19:59 Last Admin: 10/20/19 21:45 Dose: 5 mg Documented by: Formoterol Fumarate (Perforomist) 20 mcg INH BIDR [facility] Stop: 11/19/19 18:59 Last Admin: 10/21/19 07:11 Dose: 20 mcg Documented by: Furosemide (Lasix) 60 mg PO QAM@08 [facility] Stop: 11/20/19 07:59 Last Admin: 10/21/19 08:35 Dose: 60 mg Documented by: Gabapentin (Neurontin) 900 mg PO Q12H [facility] Stop: 11/19/19 19:59 Last Admin: 10/21/19 08:39 Dose: 900 mg Documented by: Gabapentin (Neurontin) 600 mg PO DAILY@1200 [facility] Stop: 11/20/19 13:29 Last Admin: 10/21/19 12:33 Dose: 600 mg Documented by: Guaifenesin (Mucinex) 1,200 mg PO Q12 [facility] Stop: 11/19/19 20:59 Last Admin: 10/21/19 08:36 Dose: 1,200 mg Documented by: Lactobacillus Acidophilus (Floranex) 1 tab PO QAM@0800 [facility] Stop: 11/20/19 07:59 Last Admin: 10/21/19 08:34 Dose: 1 tab Documented by: Levofloxacin (Levaquin) 750 mg PO DAILY@0800 [facility] Stop: 10/27/19 07:59 Last Admin: 10/21/19 08:46 Dose: 750 mg Documented by: Losartan Potassium (Cozaar) 12.5 mg PO DAILY [facility] Stop: 11/20/19 08:59 Last Admin: 10/21/19 08:35 Dose: 12.5 mg Documented by: Metoprolol Succinate (Toprol Xl) 50 mg PO DAILY@1999 [facility] Stop: 11/19/19 19:59 Last Admin: 10/20/19 21:44 Dose: 50 mg Documented by: Mirtazapine (Remeron) 15 mg PO HS@1999 [facility] Stop: 11/19/19 19:59 Last Admin: 10/20/19 21:46 Dose: 15 mg Documented by: Multivitamins (Multivitamin Tab) 1 tab PO QAM@0800 [facility] Stop: 11/20/19 07:59 Last Admin: 10/21/19 08:37 Dose: 1 tab Documented by: Neomycin/Polymyxin/Gramicidin (Neosporin) 2 drops OPR BID [facility] Stop: 11/19/19 20:59 Last Admin: 10/21/19 08:40 Dose: 2 drops Documented by: Pantoprazole Sodium (Protonix) 40 mg PO QAM@0800 [facility] Stop: 11/20/19 07:59 Last Admin: 10/21/19 08:38 Dose: 40 mg Documented by: Polyethylene Glycol (Miralax Powder Packet) 17 gm PO DAILY PRN PRN Reason: Constipation Stop: 11/19/19 12:53 Prednisone (Prednisone) 20 mg PO BID [facility] Stop: 11/20/19 09:29 Last Admin: 10/21/19 10:21 Dose: 20 mg Documented by: Tamsulosin HCl (Flomax) 0.4 mg PO HS@1999 [facility] Stop: 11/19/19 19:59 Last Admin: 10/20/19 21:46 Dose: 0.4 mg Documented by: Resident Activity Tracking Resident Involvement: Resident Care Provided Care Provided: Adult Hospital Medicine
[2019-10-21] MEDS: DIGOXIN 0.25 MG TAB PO SCH (17:37)
[2019-10-21] MEDS: FINASTERIDE 5 MG TAB PO SCH (21:08)
[2019-10-21] MEDS: MIRTAZAPINE TAB 15 MG TAB PO SCH (21:10)
[2019-10-21] MEDS: ATORVASTATIN 40 MG TAB PO SCH (21:10)
[2019-10-21] MEDS: TAMSULOSIN HCL 0.4 MG CAP PO SCH (21:12)
[2019-10-21] MEDS: METOPROLOL SUCC 50MG EXT REL TAB PO SCH (21:14)
[2019-10-22] MEDS: ALBUT/IPRATROP 3MG/0.5MG NEB 3 ML VIAL INH SCH ×4 (00:29→19:21)
[2019-10-22] MEDS: FORMOTEROL 20 MCG/2 ML VIAL INH SCH ×2 (06:59→19:13)
[2019-10-22] MEDS: BUDESONIDE 0.5 MG/2 ML VIAL (PULMICORT) INH SCH ×2 (06:59→19:13)
[2019-10-22 07:14] LABS: Hematocrit (blood only) 27.3 % (42-52); Hemoglobin 8.9 g/dL (14.0-18.0); Mean Corpuscular Hemoglobin 28.3 pg (25-34); Mean Corpuscular Hgb Conc 32.6 g/dL (32-36); Mean Corpuscular Volume 86.9 fL (80-100); RDW Coefficient of Variation 17.8 % (11.5-14.5); RDW Standard Deviation 56.7 fL (36.4-46.3); Red Blood Count 3.14 M/uL (4.7-6.1); White Blood Count 5.83 K/uL (4.8-10.8)
[2019-10-22 07:49] LABS: BUN Creatinine Ratio 38.2 (10-20); Calcium 8.4 mg/dl (8.5-10.1); Est GFR (African American) 73.4; Est GFR (Non-African American) 63.3; Potassium 3.9 mmol/L (3.5-5.1)
[2019-10-22 08:10] LABS: Basophils # (auto) 0.01 K/uL (0-0.2); Basophils % (auto) 0.2 %; Echinocytes 1+; Immature Granulocytes # (auto) 0.02 K/uL (0.00-0.02); Immature Granulocytes % (auto) 0.3 %; Lymphocytes # (auto) 0.37 K/uL (1.2-3.4); Lymphocytes % (auto) 6.3 %; Mean Platelet Volume 11.2 fL (7.4-10.4); Monocytes # (auto) 0.26 K/uL (0.11-0.59); Monocytes % (auto) 4.5 %; Neutrophils # (auto) 5.17 K/uL (1.4-6.5); Neutrophils % (auto) 88.7 %; Ovalocytes 1+; Platelet Count 81 K/uL (130-400); Platelet Estimate Decreased (Normal)
[2019-10-22] MEDS: MULTIVITAMIN TAB PO SCH (08:34)
[2019-10-22] MEDS: LACTOBACILLUS ACIDOPHILUS (FLORANEX) TAB PO SCH (08:34)
[2019-10-22] MEDS: levoFLOXacin 750 MG TAB PO SCH (08:34)
[2019-10-22] MEDS: PANTOprazole 40 MG TAB PO SCH (08:34)
[2019-10-22] MEDS: LOSARTAN POTASSIUM 25 MG TAB PO SCH (08:34)
[2019-10-22] MEDS: FERROUS SULFATE 325 MG TAB PO SCH (08:36)
[2019-10-22] MEDS: guaiFENesin 600 MG TABCR PO SCH ×2 (08:36→20:34)
[2019-10-22] MEDS: FUROSEMIDE 20 MG TAB PO SCH (08:36)
[2019-10-22] MEDS: predniSONE 20 MG TAB PO SCH ×2 (08:36→20:35)
[2019-10-22] MEDS: APIXABAN 5 MG TABLET PO SCH ×2 (08:36→20:33)
[2019-10-22] MEDS: GABAPENTIN 300 MG CAP PO SCH ×2 (08:37→20:31)
[2019-10-22] MEDS: NEOMYCIN/POLYMYXIN/GRAMICIDIN 10 ML BTL OPR SCH ×2 (08:38→20:34)
[2019-10-22 10:45] LABS: ANA Screen NEGATIVE (NEGATIVE)
--- NOTE | 2019-10-22 11:27 | Hospitalist Progress Note ---
Date of Service October 22, 2019 Assessment & Plan (1) SIRS (systemic inflammatory response syndrome): Mr. 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 Sepsis 2/2 PNA/Possible UTI -on admission, requiring 6L NC, tachycardic, borderline hypotensive, positive lactate, fever 38.1C -currently much improved, back to baseline oxygen requirements of 2L -U/A: 2+ LE, >30 WBC -CXR: Right lung airspace opacity suspicious for pneumonia. -CT Chest: Multifocal airspace consolidation as above is typical in appearance for pneumonia/aspiration pneumonitis. Layering secretions are noted in the distal trachea and mainstem bronchi. This is nonspecific but could be seen in the setting of aspiration -schedule follow-up CT scan in 6 to 8 weeks -Speech eval -> recommended videofluoroscopic swallow study (read pending) -neg bio fire and rapid respiratory viral panel -continue PO Levaquin. Bactrim prophylaxis as below -urine culture grew three organisms - likely contaminants -bcx - 1/2 grew gram positive cocci, MRSA PCR negative. Awaiting final results. Suspect contaminant as opposed to bacteremia -appreciate Pulmonology consult given complex history and recurrent pneumonia. 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 Continue Mucinex and flutter valve -pulmonology recommendations: -a prolonged taper of prednisone -> continue current dose of prednisone for approximately 4 weeks then taper by 5 mg a week until he is followed up by his outpatient pulmonary provider -Bactrim prophylaxis for PCP until prednisone dose is below 20 mg a day -> patient has sulfa drugs listed as allergy. Will discuss w/patient as to whether this was a true allergy or adverse reaction. If unable to tolerate sulfa drugs, consider dapsone for PCP prophylaxis, however dapsone is non-formulary and this will have to be started on d/c Acute on Chronic respiratory failure with hypoxia -resolved -on admission, requiring 6L NC, now back at baseline 3L NC--At home is on 3 L nasal cannula at at bedtime and with exertion during the day -Treating with his usual bronchodilators, inhaled corticosteroids. Elevated troponin -on admission, troponin was mildly elevated, peaked at 0.118 -ECG showed atrial sensed and ventricular paced rhythm -review of scanned in cardiology records, he had a normal cardiac catheterization in the last few years and has a nonischemic cardiomyopathy -likely demand ischemia in the setting of sepsis, pneumonia, Afib w/RVR -ECHO this admission: LV systolic fxn moderately reduced. EF 35-40%. RA mildly dilated. Mild MR. Paroxysmal atrial fibrillation -rates better controlled now compared to admission -Continue rate control with metoprolol, digoxin. -Cont Eliquis Chronic systolic CHF/Nonischemic cardiomyopathy -ICD in place since 2013 -frequent small runs of VT initially in ED -euvolemic at present -Daily weights, strict I's and O's -Continue home Lasix 60 mg once daily -Continue Toprol-XL, losartan -ECHO reviewed as above -Appreciate Cardiology consult HTN -Continue home Toprol-XL and losartan Lung cancer -Status post right upper lobectomy in 2005 with subsequent XRT/chemotherapy with recurrence near the mediastinum on the right in 2008 again treated with chemotherapy and XRT -Follows with oncology at [facility] Multiple myeloma -Currently on Revlimid once daily and dexamethasone 6 mg on Mondays -Hold Revlimid while acutely ill -Follows with oncology at [facility] Pancytopenia -Likely 2/2 Revlimid therapy - holding due to acute illness -Daily CBC. Transfuse as needed Postherpetic neuralgia- Right eye -Continue home gabapentin doses GERD -Continue PPI BPH -Continue tamsulosin and finasteride Depression -Cont mirtazapine 15 mg at bedtime, recently started at rehab few days ago FEN/GI: Low Na 2g. Boost TID DVT prophylaxis: Lizz Cervantes Code status: Full Code Disposition: Downgraded from telemetry to med/surg. PT/OT evaluations placed. Appreciate CM consult. Anticipate d/c back to [facility] Admission and Anticipated Discharge Date Admission Date: October 20, 2019 Supervising Physician Co-Signing Physician Notes Resident Physician Supervision Note: I independently interviewed and examined the patient and verified the son history and physical, reviewed labs and image studies, discussed the case with the resident Dr. Ayala and agree with the findings and care plan. Subjective Mr. Martin reports he feels improved today. He expresses concern regarding being discharged to [facility] given the amount of COVID-19 positive patients in that area. He denies any fever, chills, chest pain, or abdominal pain. He has been trying to increase his caloric intake due to a recent significant amount of weight loss. Review of Systems Constitutional: no fever and no chills Respiratory: + cough and + wheezing; no dyspnea Cardiovascular: no chest pain and no palpitations Gastrointestinal: no abdominal pain and no vomiting Physical Exam Constitutional: WD/WN, vitals as above no acute distress Respiratory: normal respiratory effort; no labored breathing Auscultation: + wheezes (Mild end expiratory wheezing bilaterally) Cardiovascular: Rate/Rhythm: + irregularly irregular Heart Sounds: no murmur Chest (Breasts): Chest: + pacemaker Gastrointestinal (Abdomen): Percussion/Palpation: abdomen soft; abdomen nontender Psychiatric: A+Ox3, euthymic affect Results & Data Results & Data ([facility]) Vital Signs (Past 12 Hours) Vital Signs Temp Pulse Resp BP Pulse Ox 10/22/19 08:07 36.5 C 90 21 104/57 L 98 10/22/19 07:04 72 20 98 10/22/19 05:47 36.5 C 78 20 96/57 L 91 10/22/19 00:31 85 16 93 10/21/19 23:57 36.6 C 73 18 100/59 L 97 Resident Activity Tracking Resident Involvement: Resident Care Provided Care Provided: Adult Hospital Medicine
[2019-10-22] MEDS: GABAPENTIN 600 MG TAB PO SCH (12:36)
--- NOTE | 2019-10-22 13:19 | Cardiology Progress Note ---
Date of Service October 22, 2019 Assessment & Plan (1) Chronic respiratory failure with hypoxia: (2) Chronic left ventricular systolic heart failure: (3) ICD (implantable cardioverter-defibrillator) in place: (4) Chronic atrial fibrillation: (5) Nonischemic cardiomyopathy: Continue current cardiovascular medications including metoprolol succinate, digoxin, atorvastatin, and Eliquis. Patient appears compensated/euvolemic. Continue current dose of furosemide, 60 mg daily (outpatient dose). No further inpatient cardiac testing or intervention at this time. Cardiology will sign off for the weekend. Please call with questions. Subjective Patient seen exam at the bedside. Fluid restriction liberalized yesterday. Respiratory status improving. Denies chest pain or shortness of breath. Telemetry demonstrates atrial fibrillation with fair rate control and intermittent ventricular pacing. Tolerating diet and medications. Patient offers no concern/complaints this time. Review of Systems Review of Systems: All systems reviewed & are unremarkable except as noted in HPI & below Physical Exam Constitutional: well developed, + ill appearing and + thin Respiratory: no respiratory distress and no labored breathing Auscultation: + wheezes (Mild end expiratory wheezing bilaterally); no crackles and no rales Cardiovascular: Rate/Rhythm: + irregularly irregular Heart Sounds: normal S1 and normal S2; no murmur Vessels: no JVD and no carotid bruit Extremities: no edema Gastrointestinal (Abdomen): Inspection/Auscultation: abdomen normal to inspection and normal bowel sounds; abdomen not distended Percussion/Palpation: abdomen soft; abdomen nontender, no guarding and abdomen not rigid Musculoskeletal: Extremities: + abnormal muscle tone Skin: Trauma: + contusion (Diffuse bilateral upper arm ecchymosis) Neurologic: moves all extremities; no focal motor deficits Speech / Cognition: normal speech Motor/Sensory: no tremor Psychiatric: A+Ox3, euthymic affect Results & Data Vital Signs (Past 12 Hours) Vital Signs Temp Pulse Pulse Resp BP Pulse Ox 10/22/19 11:26 36.6 C 64 19 91/42 L 96 10/22/19 08:07 36.5 C 90 21 104/57 L 98 10/22/19 07:04 72 20 98 10/22/19 05:47 36.5 C 78 20 96/57 L 91
--- NOTE | 2019-10-22 13:56 | Pulmonology Progress Note ---
Date of Service October 22, 2019 Assessment & Plan (1) Abnormal CT scan of lung: Impression: 79-year-old male with complicated prior pulmonary history including a history of lung cancer with histology and staging unavailable/undetermined status post chemo and radiation therapy. He has patchy infiltrates with increased interstitial markings concerning for interstitial lung disease which could be secondary to an idiopathic etiology (NSIP), treatment with Revlimid, treatment effect from his prior chemotherapy and radiation therapy, or potential other etiologies including chronic aspiration. Unfortunately we do not have access to his prior films to determine the chronicity of his current infiltrates however he has normal white blood cell count, normal procalcitonin, and negative bio fire would argue against infectious etiology currently. Recommendations: 1. Abnormal CT scan: Pursuing a conservative course as the etiology of his interstitial lung disease and bronchiectasis is somewhat unclear. He is being treated with empiric steroids and antibiotics and continues to show some slow and steady improvement. Await swallow evaluation for occult aspiration. His work-up will largely depend on review of his prior imaging to determine chronicity of the current findings. He is established with a printed circuit board drafter back home who he can continue to see. His serological evaluation is currently pending but as of yet does not demonstrate significant abnormality. Would continue to hold Revlimid as there are reports of pulmonary toxicity associated with this medication. Would continue current dose of prednisone for approximately 4 weeks then taper by 5 mg a week until he is followed up by his outpatient pulmonary provider. Would place on Bactrim prophylaxis until prednisone dose is below 20 mg a day. At the least he should have a follow-up CT scan in 6 to 8 weeks 2. History of lung cancer: The patient will require close radiographic surveillance or correlation with his prior CT scans to determine if the findings noted on today's CT scan represent new abnormalities or are chronic in nature. Correlation with outpatient PFTs is also recommended. 3. COPD: Continue aggressive bronchodilators. Continue Mucinex and flutter valve 4. Acute on chronic hypoxemic respiratory failure: Continue supplemental oxygen titrated to keep saturations 88 to 92%. 5. Agree with cardiac evaluation and repeating echocardiogram. We will continue to follow with you. Feel free to contact us if questions (2) COPD (chronic obstructive pulmonary disease): (3) Diastolic heart failure: (4) Interstitial lung disease: Admission and Anticipated Discharge Date Admission Date: October 20, 2019 Subjective Patient feels his breathing may be a little bit better. He is coughing and occasionally expectorating some white phlegm. No significant lower extremity edema. He feels exceedingly weak and states he becomes winded and fatigued with any significant physical activity. No chest pain or palpitations. He is tolerating a diet Review of Systems Review of Systems: Unchanged from prior Physical Exam Constitutional: WD/WN, vitals as above Neck: trachea midline, no thyromegaly Respiratory: no respiratory distress and no labored breathing Auscultation: + rales Cardiovascular: RRR, no murmur, no edema Gastrointestinal (Abdomen): normal bowel sounds, soft, nontender, no hepatosplenomegaly Musculoskeletal: Extremities: extremities normal to inspection Skin: no rashes, warm and dry Lymphatic: no cervical lymphadenopathy Results & Data Results & Data ([facility]) Vital Signs (Past 12 Hours) Vital Signs Temp Pulse Pulse Resp BP Pulse Ox 10/22/19 13:10 74 18 96 10/22/19 11:26 36.6 C 64 19 91/42 L 96 10/22/19 08:07 36.5 C 90 21 104/57 L 98 10/22/19 07:04 72 20 98 10/22/19 05:47 36.5 C 78 20 96/57 L 91 Laboratory Results 10/22/19 06:31 10/22/19 06:31 Diagnostic Findings No new films PG Care Time/CCT Total # of Minutes Spent Total Time Spent with Patient: Total time spent is greater than 50% in coordination of care (as documented) at patient's floor/unit and/or counseling patient: Coding Level of Care Code 58525 Subseq Hosp Care Lvl [address] scan of lung R91.8 COPD (chronic obstructive pulmonary disease) J44.9 Diastolic heart failure I50.30 Interstitial lung disease J84.9
--- NOTE | 2019-10-22 14:12 | Fluoroscopy Report ---
VIDEO SWALLOW STUDY CLINICAL HISTORY: Aspiration. Pneumonia. COMPARISON STUDY: Chest CT dated 10/20/2019. Fluoroscopy time: 2.1 minutes. FINDINGS: Fluoroscopic guidance is provided to the Department of Speech Pathology in performing a vid eo swallow study. The patient consumed barium-impregnated pudding, nectar thick liquid, and thin syeda um while the swallowing mechanism was observed in real-time. No penetration or aspiration was clearly identified during the examination. There was pooling of ingested material within the vallecula. Esop hageal dysmotility was observed. IMPRESSION: 1. No penetration or aspiration was clearly identified during the examination. 2. See dedicated speech pathology report for detailed findings and recommendations. Dictated: 10/22/2019 10:53 AM Transcribed: 10/22/2019 1:55 PM Rosenda [id number] [email or web address] Electronically signed by: Bipin Ramirez M.D. 10/22/2019 2:10 PM
[2019-10-22 17:25] LABS: Aldolase 4.8 U/L (< OR = 8.1); Rheumatoid Factor <14 IU/mL (<14)
[2019-10-22] MEDS: SULFAMETHOXAZOLE/TRIMETHOPRIM DS 800/160MG TAB PO SCH (17:59)
[2019-10-22] MEDS: DIGOXIN 0.125 MG TAB PO SCH (17:59)
[2019-10-22] MEDS: TAMSULOSIN HCL 0.4 MG CAP PO SCH (20:31)
[2019-10-22] MEDS: METOPROLOL SUCC 50MG EXT REL TAB PO SCH (20:33)
[2019-10-22] MEDS: ATORVASTATIN 40 MG TAB PO SCH (20:33)
[2019-10-22] MEDS: FINASTERIDE 5 MG TAB PO SCH (20:33)
[2019-10-22] MEDS: MIRTAZAPINE TAB 15 MG TAB PO SCH (20:34)
[2019-10-23] MEDS: ALBUT/IPRATROP 3MG/0.5MG NEB 3 ML VIAL INH SCH ×4 (00:48→19:17)
--- NOTE | 2019-10-23 06:46 | Electrocardiogram Report ---
Test Reason : Blood Pressure : / mmHG Vent. Rate : 072 BPM Atrial Rate : 064 BPM P-R Int : 000 ms QRS Dur : 178 ms QT Int : 448 ms P-R-T Axes : 000 -86 086 degrees QTc Int : 490 ms Ventricular-paced rhythm with occasional supraventricular complexes Underlying atrial fibrillation Abnormal ECG When compared with ECG of 20-OCT-2019 09:14, Vent. rate has decreased BY 28 BPM Confirmed by Keon Avelar ([id number]) on 10/23/2019 6:46:26 AM Referred By: REFERRED SELF Confirmed By:Keon Avelar
[2019-10-23] MEDS: BUDESONIDE 0.5 MG/2 ML VIAL (PULMICORT) INH SCH ×2 (07:01→19:16)
[2019-10-23] MEDS: FORMOTEROL 20 MCG/2 ML VIAL INH SCH ×2 (07:01→19:16)
[2019-10-23 07:59] LABS: Mean Corpuscular Hemoglobin 28.5 pg (25-34); Mean Corpuscular Hgb Conc 32.1 g/dL (32-36); Mean Corpuscular Volume 88.6 fL (80-100); RDW Coefficient of Variation 17.9 % (11.5-14.5); RDW Standard Deviation 58.4 fL (36.4-46.3); Red Blood Count 3.16 M/uL (4.7-6.1); White Blood Count 5.34 K/uL (4.8-10.8)
[2019-10-23 08:19] LABS: Mean Platelet Volume 10.1 fL (7.4-10.4); Platelet Count 80 K/uL (130-400)
[2019-10-23 08:22] LABS: Basophils # (auto) 0.01 K/uL (0-0.2); Basophils % (auto) 0.2 %; Immature Granulocytes # (auto) 0.02 K/uL (0.00-0.02); Immature Granulocytes % (auto) 0.4 %; Lymphocytes # (auto) 0.41 K/uL (1.2-3.4); Lymphocytes % (auto) 7.7 %; Monocytes # (auto) 0.27 K/uL (0.11-0.59); Monocytes % (auto) 5.1 %; Neutrophils # (auto) 4.63 K/uL (1.4-6.5); Neutrophils % (auto) 86.6 %; Ovalocytes 1+
[2019-10-23 08:28] LABS: BUN Creatinine Ratio 46.4 (10-20); Calcium 8.5 mg/dl (8.5-10.1); Creatinine Clr Calc Pharmacy 79.1 ml/min; Est GFR (African American) 95.2; Est GFR (Non-African American) 82.1; Potassium 3.9 mmol/L (3.5-5.1)
[2019-10-23] MEDS: MULTIVITAMIN TAB PO SCH (09:28)
[2019-10-23] MEDS: levoFLOXacin 750 MG TAB PO SCH (09:28)
[2019-10-23] MEDS: FUROSEMIDE 20 MG TAB PO SCH (09:28)
[2019-10-23] MEDS: FERROUS SULFATE 325 MG TAB PO SCH (09:28)
[2019-10-23] MEDS: LACTOBACILLUS ACIDOPHILUS (FLORANEX) TAB PO SCH (09:28)
[2019-10-23] MEDS: GABAPENTIN 300 MG CAP PO SCH ×2 (09:28→21:00)
[2019-10-23] MEDS: PANTOprazole 40 MG TAB PO SCH (09:29)
[2019-10-23] MEDS: LOSARTAN POTASSIUM 25 MG TAB PO SCH (09:29)
[2019-10-23] MEDS: NEOMYCIN/POLYMYXIN/GRAMICIDIN 10 ML BTL OPR SCH ×2 (09:29→21:03)
[2019-10-23] MEDS: guaiFENesin 600 MG TABCR PO SCH ×2 (09:29→21:03)
[2019-10-23] MEDS: APIXABAN 5 MG TABLET PO SCH ×2 (09:29→21:03)
[2019-10-23] MEDS: predniSONE 20 MG TAB PO SCH ×2 (09:30→21:03)
[2019-10-23] MEDS: SULFAMETHOXAZOLE/TRIMETHOPRIM DS 800/160MG TAB PO SCH (09:30)
[2019-10-23] MEDS ORDERED: ALBUT/IPRATROP 3MG/0.5MG NEB 3 ML VIAL NEB STA (11:08)
--- NOTE | 2019-10-23 11:20 | Pulmonology Progress Note ---
Date of Service October 23, 2019 Assessment & Plan (1) Abnormal CT scan of lung: Impression: 79-year-old male with complicated prior pulmonary history including a history of lung cancer with histology and staging unavailable/undetermined status post chemo and radiation therapy. He has patchy infiltrates with increased interstitial markings concerning for interstitial lung disease which could be secondary to an idiopathic etiology (NSIP), treatment with Revlimid, treatment effect from his prior chemotherapy and radiation therapy, or potential other etiologies including chronic aspiration. Unfortunately we do not have access to his prior films to determine the chronicity of his current infiltrates however he has normal white blood cell count, normal procalcitonin, and negative bio fire would argue against infectious etiology currently. Recommendations: 1. Abnormal CT scan: Pursuing a conservative course as the etiology of his interstitial lung disease and bronchiectasis is somewhat unclear. He is being treated with empiric steroids and antibiotics and continues to show some slow and steady improvement. Await swallow evaluation for occult aspiration. His work-up will largely depend on review of his prior imaging to determine chronicity of the current findings. He is established with a teacher physically impaired back home who he can continue to see. His serological evaluation is currently pending but as of yet does not demonstrate significant abnormality. Would continue to hold Revlimid as there are reports of pulmonary toxicity associated with this medication. Would continue current dose of prednisone for approximately 4 weeks then taper by 5 mg a week until he is followed up by his outpatient pulmonary provider. Would place on Bactrim prophylaxis until prednisone dose is below 20 mg a day. At the least he should have a follow-up CT scan in 6 to 8 weeks 2. History of lung cancer: The patient will require close radiographic surveillance or correlation with his prior CT scans to determine if the findings noted on today's CT scan represent new abnormalities or are chronic in nature. Correlation with outpatient PFTs is also recommended. 3. COPD: He is experiencing increasing wheezing and this morning. Nursing to page RT for a stat DuoNeb treatment. We will add Incruse to his regiment. At this point time I think some anti-inflammatory may be beneficial and will discontinue her Levaquin and change to Ceftin and azithromycin. Already on prednisone. 4. Acute on chronic hypoxemic respiratory failure: Continue supplemental oxygen titrated to keep saturations 88 to 92%. 5. Agree with cardiac evaluation and repeating echocardiogram. We will continue to follow with you. Feel free to contact us if questions (2) COPD (chronic obstructive pulmonary disease): (3) Diastolic heart failure: (4) Interstitial lung disease: Admission and Anticipated Discharge Date Admission Date: October 20, 2019 Subjective Patient seen and examined. He reports that he was doing well up until about 5 minutes beforehand when he started experiencing increasing shortness of breath. He is not really moving much air and does have significant expiratory wheezing going on. He is not coughing or expectorating phlegm. He is not tolerated noninvasive positive pressure ventilation previously. He states he definitely gets benefit from the nebulized medications. Review of Systems Review of Systems: Unchanged from prior Physical Exam Constitutional: WD/WN, vitals as above Neck: trachea midline, no thyromegaly Respiratory: + respiratory distress and + labored breathing Auscultation: + rales and + wheezes Cardiovascular: RRR, no murmur, no edema Gastrointestinal (Abdomen): normal bowel sounds, soft, nontender, no hepatospl enomegaly Musculoskeletal: Extremities: extremities normal to inspection Skin: no rashes, warm and dry Lymphatic: no cervical lymphadenopathy Results & Data Results & Data ([facility]) Vital Signs (Past 12 Hours) Vital Signs Temp Pulse Resp BP Pulse Ox 10/23/19 11:10 36.4 C L 86 112/52 L 93 10/23/19 08:06 36.6 C 62 20 107/62 94 10/23/19 07:01 62 18 94 10/23/19 00:51 71 20 98 Laboratory Results 10/23/19 07:15 10/23/19 07:15 Diagnostic Findings No new films Echocardiogram from 10/20/2019 showed reduced ejection fraction at 35 to 40% with a dilated right atrium and mild mitral insufficiency. Borderline right ventricular enlargement with normal right ventricular systolic function. RV systolic pressure estimated at 30-40. PG Care Time/CCT Total # of Minutes Spent Total Time Spent with Patient: Total time spent is greater than 50% in coordination of care (as documented) at patient's floor/unit and/or counseling patient: Coding Level of Care Code 91611 Subseq Hosp Care Lvl [address] scan of lung R91.8 COPD (chronic obstructive pulmonary disease) J44.9 Diastolic heart failure I50.30 Interstitial lung disease J84.9
[2019-10-23] MEDS: GABAPENTIN 600 MG TAB PO SCH (12:39)
[2019-10-23] MEDS: AZITHROMYCIN 250 MG TAB PO SCH (12:39)
[2019-10-23] MEDS: UMECLIDINIUM BROMIDE 62.5MCG/BLISTER 7 PUFFS/INHALER INH SCH (12:39)
--- NOTE | 2019-10-23 14:46 | Hospitalist Progress Note ---
Date of Service October 23, 2019 Assessment & Plan (1) SIRS (systemic inflammatory response syndrome): Mr. Martin is an 79 year old male male with a past medical history of lung ca in 2005 s/p R upper lobectomy/XRT/chemotherapy with recurrence near the mediastinum and repeat XRT/chemotherapy in 2008, multiple myeloma currently on Revlimid and dexamethasone, chronic respiratory failure with hypoxia using 3L NC O2 at bedtime and with exertion during the daytime, COPD, chronic systolic CHF with an EF of 31% s/p PPM/AICD for nonischemic cardiomyopathy, HTN, postherpetic neuralgia of the right side of the face and eye, paroxysmal AFib on Eliquis, GERD, BPH, depression/insomnia, and hyperlipidemia, who has had a complex recent medical history with multiple admissions to OSH's for recurrent PNA presents for same after SOB and fever PRACTICAL NURSING FACULTY from [facility]. Sepsis 2/2 PNA/Possible UTI -on admission, requiring 6L NC, tachycardic, borderline hypotensive, positive lactate, fever 38.1C -CXR: Right lung airspace opacity suspicious for pneumonia. -CT Chest: Multifocal airspace consolidation as above is typical in appearance for pneumonia/aspiration pneumonitis. Layering secretions are noted in the distal trachea and mainstem bronchi. This is nonspecific but could be seen in the setting of aspiration -schedule follow-up CT scan in 6 to 8 weeks -Speech eval -> recommended videofluoroscopic swallow study-noted some esophageal dysfunction but no doe aspiration. Recommended a slippery regular diet with thin liquids. -neg bio fire and rapid respiratory viral panel -urine culture grew three organisms - likely contaminants -bcx - 1/2 grew gram positive cocci, MRSA PCR negative. Awaiting final results. Suspect contaminant as opposed to bacteremia -continue PO Levaquin. Bactrim prophylaxis as below -appreciate Pulmonology consult given complex history and recurrent pneumonia. Pt established with a event coordinator back home COPD exacerbation -PO steroids (prednisone 20mg BID) bronchodilators, inhaled corticosteroids as above. Continue Mucinex and flutter valve -pulmonology recommendations: -a prolonged taper of prednisone -> continue current dose of prednisone for approximately 4 weeks then taper by 5 mg a week until he is followed up by his outpatient pulmonary provider -Bactrim prophylaxis for PCP until prednisone dose is below 20 mg a day -> patient has sulfa drugs listed as allergy. Discussed with pt and he states he has no recollection of this allergy. Started on bactrim and will continue to monitor for signs of intolerance. Can also consider Benadryl co-administration. Acute on Chronic respiratory failure with hypoxia -resolved but pt with episodes of SOB after exertion on 10/23/2019. Pt states he does not feel ready for discharge as a result. -on admission, requiring 6L NC, now back at baseline 3L NC--At home is on 3 L nasal cannula at at bedtime and with exertion during the day Elevated troponin -on admission, troponin was mildly elevated, peaked at 0.118 -ECG showed atrial sensed and ventricular paced rhythm -review of scanned in cardiology records, he had a normal cardiac catheterization in the last few years and has a nonischemic cardiomyopathy -likely demand ischemia in the setting of sepsis, pneumonia, Afib w/RVR -ECHO this admission: LV systolic fxn moderately reduced. EF 35-40%. RA mildly dilated. Mild MR. Paroxysmal atrial fibrillation -rates better controlled now compared to admission -Continue rate control with metoprolol, digoxin. -Cont Eliquis Chronic systolic CHF/Nonischemic cardiomyopathy -ICD in place since 2013 -frequent small runs of VT initially in ED -euvolemic at present -Daily weights, strict I's and O's -Continue home Lasix 60 mg once daily -Continue Toprol-XL, losartan -ECHO reviewed as above -Appreciate Cardiology consult HTN -Continue home Toprol-XL and losartan Lung cancer -Status post right upper lobectomy in 2005 with subsequent XRT/chemotherapy with recurrence near the mediastinum on the right in 2008 again treated with chemotherapy and XRT -Follows with oncology at [facility] Multiple myeloma -Currently on Revlimid once daily and dexamethasone 6 mg on Mondays -Hold Revlimid while acutely ill -Follows with oncology at [facility] Pancytopenia -Likely 2/2 Revlimid therapy - holding due to acute illness -Daily CBC. Transfuse as needed Postherpetic neuralgia- Right eye -Continue home gabapentin doses GERD -Continue PPI BPH -Continue tamsulosin and finasteride Depression -Cont mirtazapine 15 mg at bedtime, recently started at rehab. FEN/GI: Low Na 2g. Boost TID DVT prophylaxis: Lizz Cervantes Code status: Full Code Disposition: med/surg. PT/OT evaluations placed. Appreciate CM consult. Anticipate d/c back to [facility] on 10/24/2019 Admission and Anticipated Discharge Date Admission Date: October 20, 2019 Supervising Physician Co-Signing Physician Notes Resident Physician Supervision Note: I independently interviewed and examined the patient and verified the son history and physical, reviewed labs and image studies, discussed the case with the resident Dr. Knutson and agree with the findings and care plan. Subjective Pt seen this AM. He was trying to catch his breath with visible neck retractions after giving himself a bath. States he did not think he would be ready for discharge back to [facility] today. Denied any associated chest osuna or subjective palpitations. Review of Systems Review of Systems: All systems reviewed & are unremarkable except as noted in Subjective Physical Exam Physical Exam: General: Alert, oriented. In some mild distress Skin: bruises noted on arms Psych: Appropriate mood and affect Neuro: No gross deficits HEENT: NC/AT, lips pursed while breathing Chest: Nontender to palpation, barrel chest, pacemaker visible and palpable through skin on left chest CV: RRR, Normal s1, s2. No murmurs appreciated Resp: Breath sounds coarse bilaterally, with noted increased effort of breathing. Scattered wheezes heard Abdomen: Soft, nontender, nondistended. No guarding. No organomegaly a ppreciated. Extremities: No edema in lower extremities bilaterally. Results & Data Results & Data ([facility]) Vital Signs (Past 12 Hours) Vital Signs Temp Pulse Resp BP Pulse Ox 10/23/19 13:12 88 18 91 10/23/19 11:18 57 L 22 92 10/23/19 11:10 36.4 C L 86 112/52 L 93 10/23/19 08:06 36.6 C 62 20 107/62 94 10/23/19 07:01 62 18 94 Resident Activity Tracking Resident Involvement: Resident Care Provided Care Provided: Adult Hospital Medicine
[2019-10-23] MEDS: DIGOXIN 0.25 MG TAB PO SCH (16:21)
[2019-10-23] MEDS: TAMSULOSIN HCL 0.4 MG CAP PO SCH (21:00)
[2019-10-23] MEDS: MIRTAZAPINE TAB 15 MG TAB PO SCH (21:01)
[2019-10-23] MEDS: FINASTERIDE 5 MG TAB PO SCH (21:01)
[2019-10-23] MEDS: ATORVASTATIN 40 MG TAB PO SCH (21:03)
[2019-10-23] MEDS: cefUROXime axetil 500 MG TAB PO SCH (21:03)
[2019-10-23] MEDS: METOPROLOL SUCC 50MG EXT REL TAB PO SCH (21:10)
[2019-10-24] MEDS: ALBUT/IPRATROP 3MG/0.5MG NEB 3 ML VIAL INH SCH ×3 (00:46→12:58)
[2019-10-24 06:06] LABS: Hematocrit (blood only) 27.9 % (42-52); Hemoglobin 8.7 g/dL (14.0-18.0); Mean Corpuscular Hgb Conc 31.2 g/dL (32-36); Mean Corpuscular Volume 89.7 fL (80-100); RDW Coefficient of Variation 18.2 % (11.5-14.5); RDW Standard Deviation 58.9 fL (36.4-46.3); Red Blood Count 3.11 M/uL (4.7-6.1); White Blood Count 4.03 K/uL (4.8-10.8)
[2019-10-24 06:12] LABS: Mean Platelet Volume 9.9 fL (7.4-10.4); Platelet Count 73 K/uL (130-400)
[2019-10-24 06:32] LABS: Acanthocytes 1+; Basophils # (auto) 0.03 K/uL (0-0.2); Basophils % (auto) 0.7 %; Giant Platelets 1+; Immature Granulocytes # (auto) 0.02 K/uL (0.00-0.02); Immature Granulocytes % (auto) 0.5 %; Lymphocytes % (auto) 9.9 %; Monocytes # (auto) 0.27 K/uL (0.11-0.59); Monocytes % (auto) 6.7 %; Neutrophils # (auto) 3.31 K/uL (1.4-6.5); Neutrophils % (auto) 82.2 %; Ovalocytes 1+
[2019-10-24 06:47] LABS: BUN Creatinine Ratio 45.9 (10-20); Calcium 8.1 mg/dl (8.5-10.1); Est GFR (African American) 96.6; Est GFR (Non-African American) 83.4; Potassium 4.2 mmol/L (3.5-5.1)
[2019-10-24] MEDS: BUDESONIDE 0.5 MG/2 ML VIAL (PULMICORT) INH SCH (07:15)
[2019-10-24] MEDS: FORMOTEROL 20 MCG/2 ML VIAL INH SCH (07:15)
[2019-10-24] MEDS: PANTOprazole 40 MG TAB PO SCH (07:59)
[2019-10-24] MEDS: MULTIVITAMIN TAB PO SCH (07:59)
[2019-10-24] MEDS: LACTOBACILLUS ACIDOPHILUS (FLORANEX) TAB PO SCH (07:59)
[2019-10-24] MEDS: FERROUS SULFATE 325 MG TAB PO SCH (07:59)
[2019-10-24] MEDS: FUROSEMIDE 20 MG TAB PO SCH (08:00)
[2019-10-24] MEDS: GABAPENTIN 300 MG CAP PO SCH (08:00)
[2019-10-24] MEDS: AZITHROMYCIN 250 MG TAB PO SCH (08:03)
[2019-10-24] MEDS: cefUROXime axetil 500 MG TAB PO SCH (08:03)
[2019-10-24] MEDS: APIXABAN 5 MG TABLET PO SCH (08:03)
[2019-10-24] MEDS: UMECLIDINIUM BROMIDE 62.5MCG/BLISTER 7 PUFFS/INHALER INH SCH (08:03)
[2019-10-24] MEDS: LOSARTAN POTASSIUM 25 MG TAB PO SCH (08:04)
[2019-10-24] MEDS: guaiFENesin 600 MG TABCR PO SCH (08:04)
[2019-10-24] MEDS: NEOMYCIN/POLYMYXIN/GRAMICIDIN 10 ML BTL OPR SCH (08:04)
[2019-10-24] MEDS: predniSONE 20 MG TAB PO SCH (08:05)
[2019-10-24] MEDS: SULFAMETHOXAZOLE/TRIMETHOPRIM DS 800/160MG TAB PO SCH (08:06)
--- NOTE | 2019-10-24 11:04 | Pulmonology Progress Note ---
Date of Service October 24, 2019 Assessment & Plan (1) Abnormal CT scan of lung: Impression: 79-year-old male with complicated prior pulmonary history including a history of lung cancer with histology and staging unavailable/undetermined status post chemo and radiation therapy. He has patchy infiltrates with increased interstitial markings concerning for interstitial lung disease which could be secondary to an idiopathic etiology (NSIP), treatment with Revlimid, treatment effect from his prior chemotherapy and radiation therapy, or potential other etiologies including chronic aspiration. Unfortunately we do not have access to his prior films to determine the chronicity of his current infiltrates however he has normal white blood cell count, normal procalcitonin, and negative bio fire would argue against infectious etiology currently. Recommendations: 1. Abnormal CT scan: Pursuing a conservative course as the etiology of his interstitial lung disease and bronchiectasis is somewhat unclear. He is being treated with empiric steroids and antibiotics and continues to show some slow and steady improvement. Await swallow evaluation for occult aspiration. His work-up will largely depend on review of his prior imaging to determine chronicity of the current findings. He is established with a signalman back home who he can continue to see. His serological evaluation is currently pending but as of yet does not demonstrate significant abnormality. Would continue to hold Revlimid as there are reports of pulmonary toxicity associated with this medication. Would continue current dose of prednisone for approximately 4 weeks then taper by 5 mg a week until he is followed up by his outpatient pulmonary provider. Would place on Bactrim prophylaxis until prednisone dose is below 20 mg a day. At the least he should have a follow-up CT scan in 6 to 8 weeks 2. History of lung cancer: The patient will require close radiographic surveillance or correlation with his prior CT scans to determine if the findings noted on today's CT scan represent new abnormalities or are chronic in nature. Correlation with outpatient PFTs is also recommended. 3. COPD: Better today. Continue Incruse with Perforomist and budesonide. Would complete course of Ceftin and azithromycin. Already on prednisone, see taper above. 4. Acute on chronic hypoxemic respiratory failure: Continue supplemental oxygen titrated to keep saturations 88 to 92%. Should follow-up with his outpatient signalman when discharged from rehab (2) COPD (chronic obstructive pulmonary disease): (3) Diastolic heart failure: (4) Interstitial lung disease: Admission and Anticipated Discharge Date Admission Date: October 20, 2019 Subjective Patient feels his breathing is better today. He is wheezing less. He continues to complain of feeling exceedingly weak and is unable to transfer across the room without assistance. He is not coughing or expectorating significant phlegm. Review of Systems Review of Systems: Unchanged from prior Physical Exam Constitutional: WD/WN, vitals as above Neck: trachea midline, no thyromegaly Respiratory: + respiratory distress and + labored breathing Auscultation: + rales and + wheezes Cardiovascular: RRR, no murmur, no edema Gastrointestinal (Abdomen): normal bowel sounds, soft, nontender, no hepatosplenomegaly Musculoskeletal: Extremities: extremities normal to inspection Skin: no rashes, warm and dry Lymphatic: no cervical lymphadenopathy Results & Data Results & Data ([facility]) Vital Signs (Past 12 Hours) Vital Signs Temp Pulse Resp BP Pulse Ox 10/24/19 07:21 66 18 94 10/24/19 07:18 36.4 C L 63 18 109/67 90 10/24/19 00:46 58 L 16 96 Laboratory Results 10/24/19 05:21 10/24/19 05:21 Diagnostic Findings No new imaging PG Care Time/CCT Total # of Minutes Spent Total Time Spent with Patient: Total time spent is greater than 50% in coordination of care (as documented) at patient's floor/unit and/or counseling patient: Coding Level of Care Code 64728 Subseq Hosp Care Lvl [address] scan of lung R91.8 COPD (chronic obstructive pulmonary disease) J44.9 Diastolic heart failure I50.30 Interstitial lung disease J84.9
--- NOTE | 2019-10-24 11:55 | Discharge Summary ---
Date of Service October 24, 2019 Admission HPI Per Admitting Provider This patient is an 79-year-old male with a complex history of lung cancer in 2005 status post right upper lobectomy/XRT/chemotherapy with recurrence near the mediastinum and repeat XRT/chemotherapy in 2008, multiple myeloma currently on Revlimid and dexamethasone, chronic respiratory failure with hypoxia using 3 L nasal cannula O2 at bedtime and with exertion during the daytime, COPD, chronic systolic CHF with an EF of 31% status post PPM/AICD for nonischemic cardiomyopathy, HTN, 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 He reports he had a right total shoulder arthroplasty on June 15, 2019 at [facility] and went to rehab for 3 weeks after that. He then went home with home health and within 2 weeks later developed pneumonia [facility]. He then was discharged and felt well enough to go on a planned family vacation to [place] [employer] for the first week of July. Shortly after that, he felt very bad and [facility] and [facility] to [facility] in [place] again with recurrent pneumonia and spent approximately another 2 weeks in the hospital. He reports that he was never on the ventilator. He was then sent to rehab at [facility] for approximately the last 10 days where he then developed worsening shortness of breath and fever and was sent to [facility] for further evaluation. Here, he was found to be requiring 6 L nasal cannula, he was tachycardic, borderline low blood pressure, with a positive lactate, and a fever to 38.1 C. He was found to have a right multifocal pneumonia on chest x-ray. His CoVid-19 rapid test was negative, and a bio fire was ordered at the time of admission which is still pending. His troponin was mildly elevated at 0.118 and his ECG showed atrial sensed and ventricular paced rhythm. In the ER, he was given 500 mL's of normal saline, IV vancomycin, IV cefepime, and IV levofloxacin. Of note, he was given prednisone 50 mg p.o. x1 at [facility] prior to arrival. He will be admitted for sepsis, recurrent pneumonia, acute on chronic respiratory failure with hypoxia. Principal Diagnosis Pneumonia Discharge Data Allergies Allergy/AdvReac Type Severity Reaction Status Date / Time Penicillins Allergy Mild Verified 10/20/19 10:12 Sulfa (Sulfonamide Allergy Mild Verified 10/20/19 10:12 Antibiotics) LOCALANESTHETIC Allergy Mild TOLERATES Uncoded 10/20/19 10:12 LIDOCAINE Consultations 10/20/19 10:31 ED Decision to Admit Stat 10/20/19 12:30 Consult Health Information Management Routine 10/20/19 12:54 Consult Case Management - Discharge Planning Routine Consult Health Information Management Stat Consult Pulmonology Routine 10/20/19 20:53 Consult Cardiology Routine Ordered Studies 10/20/19 12:23 CT chest wo con Urgent 10/22/19 09:30 FL video swallow Routine Hospital Course (1) SIRS (systemic inflammatory response syndrome): Mr. Martin is an 79 year old male male with a past medical history of lung ca in 2005 s/p R upper lobectomy/XRT/chemotherapy with recurrence near the mediastinum and repeat XRT/chemotherapy in 2008, multiple myeloma currently on Revlimid and dexamethasone, chronic respiratory failure with hypoxia using 3L NC O2 at bedtime and with exertion during the daytime, COPD, chronic systolic CHF with an EF of 31% s/p PPM/AICD for nonischemic cardiomyopathy, HTN, postherpetic neuralgia of the right side of the face and eye, paroxysmal AFib on Eliquis, GERD, BPH, depression/insomnia, and hyperlipidemia, who has had a complex recent medical history with multiple admissions to OSH's for recurrent PNA presents for same after SOB and fever [employer] from [facility]. Admitted on October 20, 2019 and [facility]. Sepsis 2/2 PNA/Possible UTI -on admission, requiring 6L NC, tachycardic, borderline hypotensive, positive lactate, fever 38.1C -CXR: Right lung airspace opacity suspicious for pneumonia. -CT Chest: Multifocal airspace consolidation as above is typical in appearance for pneumonia/aspiration pneumonitis. Layering secretions are noted in the distal trachea and mainstem bronchi. This is nonspecific but could be seen in the setting of aspiration -schedule follow-up CT scan in 6 to 8 weeks -Speech eval -> recommended videofluoroscopic swallow study-noted some esophageal dysfunction but no doe aspiration. Recommended a slippery regular diet with thin liquids. -neg bio fire and rapid respiratory viral panel -urine culture grew three organisms - likely contaminants -bcx - 1/2 grew gram positive cocci, MRSA PCR negative. Awaiting final results. Suspect contaminant as opposed to bacteremia -was on PO Levaquin but transitioned to PO cefitin for 7 days (received 1 day in hospital) and azithromycin (received 1 day in hospital) for 5 days total on discharge. Continue on discharge. Bactrim prophylaxis as below -appreciated Pulmonology consult given complex history and recurrent pneumonia. Pt established with a biological aide back home COPD exacerbation -PO steroids (prednisone 20mg BID) bronchodilators, inhaled corticosteroids as above. Continue Mucinex and flutter valve -pulmonology recommendations: -a prolonged taper of prednisone -> continue current dose of prednisone 20mg BID for approximately 4 weeks then taper by 5 mg a week until he is followed up by his outpatient pulmonary provider -Bactrim prophylaxis for PCP until prednisone dose is below 20 mg a day -> patient has sulfa drugs listed as allergy. Discussed with pt and he states he has no recollection of this allergy. -Started on bactrim while hospitalized- no side effects noted. Continue to monitor for signs of intolerance after discharge. Acute on Chronic respiratory failure with hypoxia -resolved -on admission, requiring 6L NC, now back at baseline 3L NC--At home is on 3 L nasal cannula at at bedtime and with exertion during the day Elevated troponin -on admission, troponin was mildly elevated, peaked at 0.118 -ECG showed atrial sensed and ventricular paced rhythm -review of scanned in cardiology records, he had a normal cardiac catheterization in the last few years and has a nonischemic cardiomyopathy -likely demand ischemia in the setting of sepsis, pneumonia, Afib w/RVR -ECHO this admission: LV systolic fxn moderately reduced. EF 35-40%. RA mildly dilated. Mild MR. Paroxysmal atrial fibrillation -rates better controlled now compared to admission -Continue rate control with metoprolol, digoxin. -Cont Eliquis Chronic systolic CHF/Nonischemic cardiomyopathy -ICD in place since 2013 -frequent small runs of VT initially in ED -euvolemic at present -Daily weights, strict I's and O's -Continue home Lasix 60 mg once daily -Continue Toprol-XL, losartan -ECHO reviewed as above -Appreciate Cardiology consult HTN -Continue home Toprol-XL and losartan Lung cancer -Status post right upper lobectomy in 2005 with subsequent XRT/chemotherapy with recurrence near the mediastinum on the right in 2009 again treated with chemotherapy and XRT -Follows with oncology at [facility] Multiple myeloma -Was on Revlimid once daily and dexamethasone 6 mg on Mondays -Hold Revlimid (can cause pulm intoxication )and dexamethasone while acutely ill, per pulmonology recommendations. -Follows with oncology at [facility] Pancytopenia -Likely 2/2 Revlimid therapy - holding due to acute illness Postherpetic neuralgia- Right eye -Continue home gabapentin doses GERD -Continue PPI BPH -Continue tamsulosin and finasteride Depression -Cont mirtazapine 15 mg at bedtime, recently started at rehab. Total Time Total Time Spent Total Time Spent (In Minutes): See attending Attestation Discharge Plan Discharge Items Patient Disposition: Transfer [facility] Reason For Visit: PNEUMONIA,SEPSIS Discharge Diagnosis: Pneumonia Activity: Per Instructions section Non-emergency contact: Primary Care Provider Call non-emergency contact if: your symptoms worsen and you have a fever Follow-up/Referrals: [facility] [Primary Care Provider] - Diet: Heart Healthy Addtl Attending Provider Instructions: Mr. Martin is an 79 year old male male with a past medical history of lung ca in 2005 s/p R upper lobectomy/XRT/chemotherapy with recurrence near the mediastinum and repeat XRT/chemotherapy in 2008, multiple myeloma currently on Revlimid and dexamethasone, chronic respiratory failure with hypoxia using 3L NC O2 at bedtime and with exertion during the daytime, COPD, chronic systolic CHF with an EF of 31% s/p PPM/AICD for nonischemic cardiomyopathy, HTN, postherpetic neuralgia of the right side of the face and eye, paroxysmal AFib on Eliquis, GERD, BPH, depression/insomnia, and hyperlipidemia, who has had a complex recent medical history with multiple admissions to OSH's for recurrent PNA presents for same after SOB and fever [employer] from [facility]. SUMMARY INSTRUCTIONS -follow-up chest CT scan needed in 6 to 8 weeks for pulmonary complications -complete course of PO cefitin for 7 days total and azithromycin for 5 days total -continue current dose of prednisone 20mg BID for approximately 4 weeks then taper by 5 mg a week until he is followed up by his outpatient pulmonary provider -continue inhaled corticosteroids. Continue Mucinex and flutter valve -per pulmonology, hold revlimid (can cause pulmonary toxicity) and dexamethasone until acute illness resolved -Continue Incruse with Perforomist and budesonide -Continue supplemental oxygen titrated to keep saturations 88 to 92% Sepsis 2/2 PNA/Possible UTI -on admission, requiring 6L NC, tachycardic, borderline hypotensive, positive lactate, fever 38.1C -CXR: Right lung airspace opacity suspicious for pneumonia. -CT Chest: Multifocal airspace consolidation as above is typical in appearance for pneumonia/aspiration pneumonitis. Layering secretions are noted in the distal trachea and mainstem bronchi. This is nonspecific but could be seen in the setting of aspiration -schedule follow-up CT scan in 6 to 8 weeks -Speech eval -> recommended videofluoroscopic swallow study-noted some e sophageal dysfunction but no doe aspiration. Recommended a slippery regular diet with thin liquids. -neg bio fire and rapid respiratory viral panel -urine culture grew three organisms - likely contaminants -bcx - 1/2 grew gram positive cocci, MRSA PCR negative. Awaiting final results. Suspect contaminant as opposed to bacteremia -started on PO Levaquin but transitioned to PO cefitin for 7 days and azithromycin for 5 days total. Bactrim prophylaxis as below -appreciate Pulmonology consult given complex history and recurrent pneumonia. Pt established with a biological aide back home COPD exacerbation -PO steroids (prednisone 20mg BID) bronchodilators, inhaled corticosteroids as above. Continue Mucinex and flutter valve -pulmonology recommendations: -a prolonged taper of prednisone -> continue current dose of prednisone 20mg BID for approximately 4 weeks then taper by 5 mg a week until he is followed up by his outpatient pulmonary provider -Bactrim prophylaxis for PCP until prednisone dose is below 20 mg a day -> patient has sulfa drugs listed as allergy. Discussed with pt and he states he has no recollection of this allergy. Started on bactrim and will continue to monitor for signs of intolerance. Can also consider Benadryl co-administration. Acute on Chronic respiratory failure with hypoxia -resolved -on admission, requiring 6L NC, now back at baseline 3L NC--At home is on 3 L nasal cannula at at bedtime and with exertion during the day Elevated troponin -on admission, troponin was mildly elevated, peaked at 0.118 -ECG showed atrial sensed and ventricular paced rhythm -review of scanned in cardiology records, he had a normal cardiac catheterization in the last few years and has a nonischemic cardiomyopathy -likely demand ischemia in the setting of sepsis, pneumonia, Afib w/RVR -ECHO this admission: LV systolic fxn moderately reduced. EF 35-40%. RA mildly dilated. Mild MR. Paroxysmal atrial fibrillation -rates better controlled now compared to admission -Continue rate control with metoprolol, digoxin. -Cont Eliquis Chronic systolic CHF/Nonischemic cardiomyopathy -ICD in place since 2013 -frequent small runs of VT initially in ED -euvolemic at present -Daily weights, strict I's and O's -Continue home Lasix 60 mg once daily -Continue Toprol-XL, losartan -ECHO reviewed as above -Appreciate Cardiology consult HTN -Continue home Toprol-XL and losartan Lung cancer -Status post right upper lobectomy in 2005 with subsequent XRT/chemotherapy with recurrence near the mediastinum on the right in 2008 again treated with chemotherapy and XRT -Follows with oncology at [facility] Multiple myeloma -Currently on Revlimid once daily and dexamethasone 6 mg on Mondays -Hold Revlimid while acutely ill -Follows with oncology at [facility] Pancytopenia -Likely 2/2 Revlimid therapy - holding due to acute illness -Daily CBC. Transfuse as needed Postherpetic neuralgia- Right eye -Continue home gabapentin doses GERD -Continue PPI BPH -Continue tamsulosin and finasteride Depression -Cont mirtazapine 15 mg at bedtime, recently started at rehab. Pending Studies at Discharge: No Stand-Alone Forms: My [facility] Skilled Items Patient informed of condition?: Yes DNR: No Discharge Level of Care: Skilled Communicable Disease: No Discharge Prognosis: Stable Lines: None Urinary Catheter: No Medications and DC Order Prescriptions: New azithromycin [Zithromax] 250 mg Tablet 250 mg PO QAM 4 Days Qty: 4 RF: 0 prednisone 20 mg Tablet 20 mg PO BID 14 Days Qty: 28 RF: 0 sulfamethoxazole-trimethoprim 800-160 mg Tablet 1 tab PO DAILY 14 Days Qty: 14 RF: 0 cefuroxime axetil 500 mg Tablet 500 mg PO BID 6 Days Qty: 12 RF: 0 guaifenesin [Mucinex] 600 mg Tablet Extended Release 12hr 1,200 mg PO Q12 14 Days Qty: 56 RF: 0 Incruse Ellipta 62.5 mcg/actuation Blister With Device 1 puff inhalation DAILY 14 Days Qty: 1 RF: 0 Continued metoprolol succinate 50 mg tablet extended release 24 hr 50 mg PO DAILY@1900 RF: 0 tamsulosin 0.4 mg capsule 0.4 mg PO HS RF: 0 ferrous sulfate 325 mg (65 mg iron) tablet 325 mg PO QDB RF: 0 losartan 25 mg tablet 25 mg PO DAILY RF: 0 gabapentin 300 mg capsule See Rx Instructions .ROUTE .COMPLEX RF: 0 digoxin 125 mcg (0.125 mg) tablet 125 mcg PO MOWEFR RF: 0 furosemide 20 mg tablet 60 mg PO QAM RF: 0 mirtazapine 15 mg tablet 15 mg PO HS RF: 0 nystatin 100,000 unit/mL suspension 5 ml PO QID RF: 0 ipratropium-albuterol 0.5 mg-3 mg(2.5 mg base)/3 mL Solution For Nebulization 3 ml INHALATION Q6H PRN (Reason: Shortness Of Breath Or Wheezing) RF: 0 digoxin 250 mcg (0.25 mg) Tablet 250 mcg PO SUTUTHSA RF: 0 finasteride [Proscar] 5 mg Tablet 5 mg PO HS RF: 0 Eliquis 5 mg Tablet 5 mg PO BID RF: 0 multivitamin Tablet 1 tab PO QAM RF: 0 atorvastatin 80 mg tablet 80 mg PO HS RF: 0 pantoprazole 40 mg tablet,delayed release (DR/EC) 40 mg PO QAM RF: 0 budesonide 0.5 mg/2 mL Suspension For Nebulization 0.5 mg INHALATION BID RF: 0 Brovana 15 mcg/2 mL Solution For Nebulization 15 mcg INHALATION BID RF: 0 Lactobacillus acidoph-L.bulgar [Floranex] 1 million cell Tablet 1 tab PO QAM RF: 0 Neosporin Drops 2 drp OPB BID RF: 0 Discontinued Revlimid 10 mg capsule 10 mg PO QAM RF: 0 prednisone 10 mg Tablet 10 mg PO .TAPER DOSE RF: 0 dexamethasone 6 mg Tablet 6 mg PO MO RF: 0 Discharge Orders: Discharge Order (Routine); Ordered 10/24/19 Ordered By: Melanie Knutson Admission Data Admit Date/Time: 10/20/19 11:29 Attending Provider: Maureen Hart Admit Provider: Lindsey Haines Care Provider: Arcenio Howard Other Providers: [facility] ; Lindsey Haines ; Prabhjot Posada ; Feng Cunha Other Interventions: Discharge Summary Assessment (RN) Last Done: 10/24/19 13:32 Supervising Physician Co-Signing Physician Notes Resident Physician Supervision Note: I independently interviewed and examined the patient and verified the son history and physical, reviewed labs and image studies, discussed the case with the resident Dr. Knutson and agree with the findings and care plan. Resident Activity Tracking Resident Involvement: Resident Care Provided Care Provided: Adult Hospital Medicine
[2019-10-24] MEDS: GABAPENTIN 600 MG TAB PO SCH (12:19)
[2019-10-25] MEDS ORDERED: dexAMETHasone 4 MG TAB PO SCH (09:00)
== END 2019-10-24 14:50 | DRG 871 ==
LOC: ED 08:37 → 2S 11:29 → SUATTDRO 11:29 → 2S 12:33 → 2W 10-22 14:00

== ENCOUNTER 2019-11-03 10:33 | Inpatient (IN) ==
[2019-11-03] MEDS ORDERED: LEVALBUTEROL TARTRATE 15 GM HFA.AER.AD INH STA (10:52)
--- NOTE | 2019-11-03 11:20 | XRay Report ---
XR chest 1V portable CLINICAL HISTORY: Sepsis. Cough. COMPARISON STUDY: Chest radiograph and chest CT October 20, 2019. FINDINGS: Postoperative findings within the right hemithorax are noted. A right shoulder arthroplasty and left subclavian pacer/AICD are place. Emphysema is again noted. Note is made of cardiomegaly wit hout evidence for pulmonary edema. Right lung airspace opacities are noted. This is slightly improved since prior exam. There is a trace right pleural effusion. IMPRESSION: 1. Persistent right lung airspace opacities, slightly improved since prior exam. The findings favor a n infectious process. 2. Small right pleural effusion. 3. Cardiomegaly without evidence for pulmonary edema. 4. Emphysema. ACT 112: Negative or not required by law. Electronically signed by: Morgan Dockery M.D. 11/03/2019 11:19 AM
[2019-11-03] MEDS ORDERED: CEFEPIME 2,000 MG/20 ML VIAL IV STA (11:25)
[2019-11-03] MEDS ORDERED: NITROGLYCERIN SL 0.4 MG/TAB TAB SL STA (11:47)
[2019-11-03] MEDS ORDERED: ASPIRIN CHEW 324 MG PO STA (11:47)
[2019-11-03 11:49] LABS: Basophils # (auto) 0.16 K/uL (0-0.2); Basophils % (auto) 2.4 %; Hemoglobin 10.9 g/dL (14.0-18.0); Immature Granulocytes # (auto) 0.03 K/uL (0.00-0.02); Immature Granulocytes % (auto) 0.4 %; Lymphocytes # (auto) 0.94 K/uL (1.2-3.4); Mean Corpuscular Hemoglobin 28.9 pg (25-34); Mean Corpuscular Hgb Conc 32.1 g/dL (32-36); Mean Corpuscular Volume 90.2 fL (80-100); Mean Platelet Volume 9.6 fL (7.4-10.4); Monocytes # (auto) 0.09 K/uL (0.11-0.59); Monocytes % (auto) 1.3 %; Neutrophils # (auto) 5.51 K/uL (1.4-6.5); Neutrophils % (auto) 81.9 %; Nucleated RBC # (auto) 0.07 K/uL (0-0); Nucleated RBC % (auto) 1.1 %; Platelet Count 113 K/uL (130-400); RDW Coefficient of Variation 20.3 % (11.5-14.5); RDW Standard Deviation 64.8 fL (36.4-46.3); Red Blood Count 3.77 M/uL (4.7-6.1); White Blood Count 6.73 K/uL (4.8-10.8)
[2019-11-03] MEDS: LEVOFLOXACIN/D5W 750 MG/150 ML BAG IV STA ×2 (12:04→12:18)
[2019-11-03 12:09] LABS: Albumin Level 2.8 gm/dl (3.4-5.0); Calcium 8.9 mg/dl (8.5-10.1); Creatinine Clr Calc Pharmacy 75.3 ml/min; Est GFR (African American) 90.1; Est GFR (Non-African American) 77.7; Magnesium 2.2 mg/dl (1.8-2.4); Potassium 4.2 mmol/L (3.5-5.1)
[2019-11-03] MEDS ORDERED: MAGNESIUM SULFATE / D5W 1 GM/100 ML BAG IV ONE (12:10)
[2019-11-03] MEDS ORDERED: levoFLOXacin 750 MG TAB PO ONE (12:12)
[2019-11-03 12:19] LABS: Albumin Globulin Ratio 0.7 (0.9-2); Bilirubin,Total 0.6 mg/dl (0.2-1); C Reactive Protein 1.05 mg/dl (0-0.29); Globulin 3.8 gm/dl (2.5-4.0); Total Protein 6.6 gm/dl (6.4-8.2); Troponin I 0.18 ng/ml (0-0.045)
[2019-11-03 12:20] LABS: ALC (manual) 0.98 K/uL (1.2-3.4); ANC (manual) 5.57 K/uL (1.4-6.5); Acanthocytes 1+; Anisocytosis Present; Eosinophils # (manual) 0.06 K/uL (0-0.5); Eosinophils % (manual) 0.9 %; Lymphocytes # (manual) 0.11 K/uL (1.2-3.4); Lymphocytes % (manual) 1.7 %; Monocytes # (manual) 0.11 K/uL (0.11-0.59); Monocytes % (manual) 1.7 %; Neutrophils # (manual) 5.57 K/uL (1.4-6.5); Neutrophils % (manual) 82.8 %; Poikilocytosis Present; Reactive Lymphocytes # (manual) 0.87 K/uL; Reactive Lymphocytes % (manual) 12.9 %
[2019-11-03] MEDS ORDERED: NITROGLYCERIN 2% OINTMENT 30GM TUBE EXT STA (12:21)
[2019-11-03 12:24] LABS: Influenza A virus by PCR Neg for Influ A (Neg); Influenza B virus by PCR Neg for Influ B (Neg)
[2019-11-03 12:31] LABS: Appearance Urine Clear (Clear); Bacteria Urine Automated Negative (Negative); Bilirubin Urine Negative (Negative); Blood Urine Trace (Negative); Color Urine Yellow; Glucose Urine UA Negative (Negative); Ketones Urine Negative (Negative); Leukocyte Esterase Urine 1+ (Negative); Nitrite Urine Negative (Negative); Protein Urine Negative (Negative); RBC Urine Automated 0-4 /hpf (0-4); Specific Gravity Urine 1.017 (1.000-1.030); Urobilinogen Urine Negative (Negative); pH Urine 5.5 (4.5-7.5)
[2019-11-03] MEDS ORDERED: LEVALBUTEROL TARTRATE 15 GM HFA.AER.AD INH SCH (13:00)
[2019-11-03 13:02] LABS: INR 1.2 (0.9-1.1); Partial Thromboplastin Ratio 0.9; Partial Thromboplastin Time 24.6 Seconds (21.0-31.0); Prothrombin Time 12.3 Seconds (9.0-12.0)
[2019-11-03 13:14] LABS: Creatine Kinase MB 3.6 ng/ml (0.5-3.6)
--- NOTE | 2019-11-03 13:15 | History & Physical Report ---
Date of Service November 03, 2019 Assessment & Plan (1) Sepsis: Likely 2nd to RLL pneumonia - uncertain if this is a new pneumonia with a new pathogen or a refractory pneumonia as he was just treated for such during his stay at [facility] 10 days ago. Previous MRSA screens were negative but because o f frequent healthcare exposure will recheck. Would add MRSA coverage if MRSA ENTERTAINMENT MANAGER is +. In meantime - cefepime as he is at high risk of gram negative pneumonia. Levaquin for typicals and atypicals. Follow blood cx's. U/a not suggestive of UTI. COVID-19 PCR negative. Flu PCR negative. Repeat lactate improved later in the day. (2) Pneumonia: See discussion above in "sepsis." Pulmonary consultation requested due to frequency of respiratory events, COPD/?ILD, recurrent pneumonia, etc. Could patient have endobronchial lesion causing post-obstructive pneumonias on right? (3) Acute and chronic respiratory failure with hypoxia: Acute component 2nd to suspected right-sided pneumonia and COPD/ILD exacerbation. I don't see evidence of decompensated CHF. Treat pneumonia. IV steroids - 40mg q6h. Gave [id number] duonebs in ER with improved symptoms. Cont duonebs q4h thereafter. Pulmonary toilet. Pulmonary consult requested. Of note - patient had speech eval last admit - video swallow w/o aspiration. (4) COPD (chronic obstructive pulmonary disease): with exacerbation. as above. (5) Chronic atrial fibrillation: Cont metoprolol. Cont digoxin. Cont eliquis. (6) Chronic left ventricular systolic heart failure: EF 35-40%. Global hypokinesis on recent echo. Compensated on exam today. Cont BB. Cont lasix 60mg PO daily. BPs are low-normal today -- hold ARB for now. (7) Interstitial lung disease: Possible diagnosis - see pulmonary documentation from previous admission. Was discharged on prolonged prednisone taper (4-6 weeks) at conclusion of last admission. Now back on IV steroids for exacerbation of COPD/?ILD. Pulmonary to follow. (8) ICD (implantable cardioverter-defibrillator) in place: Given acuity of today's events will interrogate device to see if any arrhythmia occurred overnight last pm that contributed to his symptoms & presentation. (9) Elevated troponin: Patient with chest pain in ER relieved with nitro. No prior h/o CAD. Serial troponins. Pain may have been from severe bronchoconstriction. (10) BPH (benign prostatic hyperplasia): Cont finasteride. Cont flomax. (11) GERD (gastroesophageal reflux disease): Cont PPI (12) Multiple myeloma: known diagnosis. followed in [place] ? Treated with Revlimid as well as dexamethasone for approximately 18 months. CBC stable today. (13) Lung cancer: RUL - s/p resection followed by chemo and radiation several years ago. recent Chest CT during prior admission with multiple concerning areas on that scan ("There are 2 foci of more nodular appearing consolidation in the left lung which measure up to 2 cm. A follow-up chest CT is recommended in 1-3 months time to document complete resolution and to exclude the possibility of underlying neoplasm.") will need close f/u with oncology post-discharge. (14) Candidiasis of mouth and esophagus: nystatin swish/swallow 5cc qid (15) DVT prophylaxis: eliquis BID updated pt's son by phone 11/03/19 discussed care w/ pulmonary will need PT/OT once pulmonary status will allow participation History of Present Illness Chief Complaint: worsening shortness of breath Primary Care Provider: [facility] Complicated 79yo male with chronic hypoxic respiratory failure on 3 L NC O2 continuously, COPD, h/o right upper lobe lung cancer s/p RUL resection/chemo/XRT, chronic systolic CHF EF 35-40%, recent hospital stay for RML/RLL pneumonia, ?ILD - presents from [facility] after awakening at 0430 with severe shortness of breath. About that time he got up from the bed and went to the bathroom. He was very weak and had significant cough after he got to the bathroom. Cough is nonproductive. No fever. Had chills before coming to the [facility] ER. Yesterday he felt well at [facility] and participated in therapy. Had good appetite. At [facility] prior to transfer he had a "slight" chest pain. He then developed more severe chest pain in our ER. Was right-sided, then radiated to the left side of chest. Pain improved with nitroglycerin in the ER along with aspirin. Had heart catheterization in the past at [facility] and [facility] - no CAD per his recollection. Denies any edema. Doesn't he feel he has had water retention. He is disappointed that he is ill again as [facility] was preparing to d/c him home in the next 1-2 days. I spoke with son by phone today and the son reported that his father sounded dyspneic and "raspy" last night when he spoke to his dad on the phone. Allergies Allergy/AdvReac Type Severity Reaction Status Date / Time Penicillins Allergy Mild Verified 11/03/19 12:21 Sulfa (Sulfonamide Allergy Mild Verified 11/03/19 12:21 Antibiotics) LOCALANESTHETIC Allergy Mild TOLERATES Uncoded 11/03/19 12:21 LIDOCAINE Home Medications Home Medications Medication Instructions Recorded Confirmed Type Lactobacillus acidoph-L.bulgar 1 tab PO QAM 10/20/19 11/03/19 History [Floranex] atorvastatin 80 mg PO HS 10/20/19 11/03/19 History budesonide 0.5 mg INHALATION BID 10/20/19 11/03/19 History digoxin 125 mcg PO MOWEFR 10/20/19 11/03/19 History digoxin 250 mcg PO SUTUTHSA 10/20/19 11/03/19 History ferrous sulfate 325 mg PO QDB 10/20/19 11/03/19 History finasteride [Proscar] 5 mg PO HS 10/20/19 11/03/19 History furosemide 60 mg PO QAM 10/20/19 11/03/19 History gabapentin See Rx Instructions .ROUTE .COMPLEX 10/20/19 11/03/19 History ipratropium-albuterol 3 ml INHALATION Q6H PRN 10/20/19 11/03/19 History losartan 12.5 mg PO DAILY 10/20/19 11/03/19 History metoprolol succinate 50 mg PO DAILY@1900 10/20/19 11/03/19 History mirtazapine 15 mg PO HS 10/20/19 11/03/19 History multivitamin 1 tab PO QAM 10/20/19 11/03/19 History pantoprazole 40 mg PO QAM 10/20/19 11/03/19 History tamsulosin 0.4 mg PO HS 10/20/19 11/03/19 History guaifenesin [Mucinex] 1,200 mg PO Q12 14 Days #56 tab 10/24/19 11/03/19 Rx prednisone 20 mg PO BID 14 Days #28 tab 10/24/19 11/03/19 Rx sulfamethoxazole-trimethoprim 1 tab PO DAILY 14 Days #14 tab 10/24/19 11/03/19 Rx umeclidinium [Incruse Ellipta] 1 puff INHALATION DAILY 14 Days #1 10/24/19 11/03/19 Rx ea apixaban [Eliquis] 5 mg PO Q12 11/03/19 11/03/19 History formoterol fumarate 20 mcg INHALATION BID 11/03/19 11/03/19 History ujjdfuum-hvzzslsuw-ujcefrruuz 2 drp OPB BID 11/03/19 11/03/19 History Past Med/Surg History Medical History (Updated 11/03/19 @ 21:02 by Juliano Chauhan) Abnormal CT scan of lung BPH (benign prostatic hyperplasia) Chronic anticoagulation Chronic respiratory failure with hypoxia Chronic systolic CHF (congestive heart failure) COPD (chronic obstructive pulmonary disease) Depression GERD (gastroesophageal reflux disease) HTN (hypertension), benign Hyperlipidemia ICD (implantable cardioverter-defibrillator) in place Interstitial lung disease Lung cancer dx 2005, RUL - s/p RUL lobectomy Multiple myeloma 2018 - dx at [facility] in [place]; follows with Dr Renee in [place] Nonischemic cardiomyopathy Pancytopenia Paroxysmal atrial fibrillation Postherpetic neuralgia Surgical History History of bursectomy History of endovascular stent graft for abdominal aortic aneurysm History of lobectomy of lung History of lumbosacral spine surgery History of permanent cardiac pacemaker placement History of tonsillectomy Status post reverse total arthroplasty of right shoulder Family History (Updated 11/03/19 @ 13:10 by Juliano Chauhan) Father Heart disease Mother Lung cancer Other Family history non-contributory Social History (Updated 11/03/19 @ 13:10 by Juliano Chauhan) Preferred Language: Pakistani Communication Ability: Effective [employer] Required: No Beliefs That Will Affect Care: None marital status: / Current Living Situation: Rehab Current Living Situation Comment: [facility] current occupational status: 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 [place] Other Information That Helps Us Care for You: No other: lives with Grand-daughter in [place]; 4 children Feels Safe at Home: Yes Smoking Status: Former smoker packs per day: 1.5 ; Years Smoked: 50 ; Number of Years Since Quit: 20 ; Hx Alcohol Use: No Hx Substance Use: No Review of Systems Constitutional: + chills and + fatigue; no fever Eyes: no worsening vision visual disturbance - blurry vision - 10 days ago (right eye) Ear, Nose, Mouth, Throat: + sore throat (thrush?); no nasal congestion and no dysphagia no loss of taste or smell Respiratory: + cough, + dyspnea and + dyspnea on exertion; no hemoptysis Cardiovascular: + chest pain and + paroxysmal nocturnal dyspnea; no orthopnea and no edema Gastrointestinal: no abdominal pain, no nausea, no vomiting and no diarrhea/loose stools Genitourinary: + difficulty urinating; no dysuria Musculoskeletal: no myalgia Integumentary: no rash Neurologic: no loss of sensation Psychiatric: no depression Endocrine: no diabetes Hematologic / Lymphatic: + easy bruising; no easy bleeding Physical Exam Constitutional: + acute distress (respiratory distress ), + ill appearing and + frail appearing; no altered mental status Eyes: + no PERRL (right surgical pupil; lens implants b/l ) ENMT: Mouth: + oral mucosal abnormality (severe thrush plaques on tongue and buccal mucosa ) and + dry oral mucous membranes Neck: trachea midline, no thyromegaly Respiratory: + respiratory distress, + labored breathing, + retractions, + uses accessory muscles, + cough and + tachypneic Auscultation: + crackles (right base) and + wheezes (severe, extensive, b/l, all lung segments; airation poor) Cardiovascular: Rate/Rhythm: regular rate and regular rhythm Heart Sounds: normal S1 and normal S2; no murmur Vessels: posterior tibial pulses present and dorsalis pedis pulses present; no JVD Extremities: no edema Gastrointestinal (Abdomen): normal bowel sounds, soft, nontender, no hepatosplenomegaly Musculoskeletal: Extremities: + clubbing Skin: no rashes, warm and dry Neurologic: deep tendon reflexes 2+ bilaterally and moves all extremities Psychiatric: Orientation: alert and oriented x 3 Affect: + anxious affect Lymphatic: no cervical lymphadenopathy Results & Data Results & Data ([facility]) Vital Signs (Past 12 Hours) Vital Signs Temp Pulse Resp BP Pulse Ox 11/03/19 12:37 90 29 H 111/82 93 11/03/19 12:29 92 H 25 H 91/42 L 93 11/03/19 12:02 96 H 20 105/71 95 11/03/19 11:02 96 11/03/19 11:00 95 H 20 96 11/03/19 10:46 37.5 C 99 H 22 119/79 95 Laboratory Results Laboratory Results - last 24 hr 11/03/19 11/03/19 11/03/19 11:34 11:34 11:34 WBC 6.73 RBC 3.77 L Hgb 10.9 L Hct 34.0 L MCV 90.2 MCH 28.9 MCHC 32.1 RDW Std Deviation 64.8 H RDW Coeff of Sonja 20.3 H Plt Count 113 L MPV 9.6 Immature Gran % (Auto) 0.4 Neut % (Auto) 81.9 Lymph % (Auto) 14.0 [place] % (Auto) 1.3 Eos % (Auto) 0.0 Baso % (Auto) 2.4 Immature Gran # (Auto) 0.03 H Neut # (Auto) 5.51 Lymph # (Auto) 0.94 L [place] # (Auto) 0.09 L Eos # (Auto) 0.00 Baso # (Auto) 0.16 Absolute Nucleated RBC 0.07 H Nucleated RBC % (auto) 1.1 Neutrophils % (Manual) 82.8 Lymphocytes % (Manual) 1.7 Reactive Lymphs % (Man) 12.9 Monocytes % (Manual) 1.7 Eosinophils % (Manual) 0.9 Neutrophils # (Manual) 5.57 Total Absolute Neuts 5.57 Lymphocytes # (Manual) 0.11 L Reactive Lymphs # 0.87 Total Abs Lymphocytes 0.98 L Monocytes # (Manual) 0.11 Eosinophils # (Manual) 0.06 Poikilocytosis Present Anisocytosis Present Acanthocytes (Spur) 1+ ESR 18 H PT Cancelled INR Cancelled APTT Cancelled PTT Ratio Cancelled Sodium Potassium Chloride Carbon Dioxide Anion Gap BUN Creatinine Est Cr Clr Drug Dosing Est GFR ( Amer) Est GFR (Non-Af Amer) BUN/Creatinine Ratio Glucose Lactate Calcium Magnesium Total Bilirubin AST ALT Alkaline Phosphatase Lactate Dehydrogenase Total Creatine Kinase CK-MB (CK-2) CK/CKMB % Calc Troponin I C-Reactive Protein NT-Pro-B Natriuret Pep Total Protein Albumin Globulin Albumin/Globulin Ratio Procalcitonin Urine Color Urine Appearance Urine pH Ur Specific [place] Urine Protein Urine Glucose (UA) Urine Ketones Urine Blood Urine Nitrite Urine Bilirubin Urine Urobilinogen Ur Leukocyte Esterase Urine WBC (Auto) Urine RBC (Auto) U Hyaline Cast (Auto) U Epithel Cells (Auto) Urine Bacteria (Auto) Digoxin COVID-19 PCR Influenza Type A (PCR) Influenza Type B (PCR) 11/03/19 11/03/19 11/03/19 11:34 11:34 11:34 WBC RBC Hgb Hct MCV MCH MCHC RDW Std Deviation RDW Coeff of Sonja Plt Count MPV Immature Gran % (Auto) Neut % (Auto) Lymph % (Auto) [place] % (Auto) Eos % (Auto) Baso % (Auto) Immature Gran # (Auto) Neut # (Auto) Lymph # (Auto) [place] # (Auto) Eos # (Auto) Baso # (Auto) Absolute Nucleated RBC Nucleated RBC % (auto) Neutrophils % (Manual) Lymphocytes % (Manual) Reactive Lymphs % (Man) Monocytes % (Manual) Eosinophils % (Manual) Neutrophils # (Manual) Total Absolute Neuts Lymphocytes # (Manual) Reactive Lymphs # Total Abs Lymphocytes Monocytes # (Manual) Eosinophils # (Manual) Poikilocytosis Anisocytosis Acanthocytes (Spur) ESR PT INR APTT PTT Ratio Sodium 138 Potassium 4.2 Chloride 98 Carbon Dioxide 35 H Anion Gap 5.0 BUN 53 H Creatinine 0.92 Est Cr Clr Drug Dosing 75.3 Est GFR ( Amer) 90.1 Est GFR (Non-Af Amer) 77.7 BUN/Creatinine Ratio 57.0 H Glucose 77 Lactate 2.6 H* Calcium 8.9 Magnesium 2.2 Total Bilirubin 0.6 AST 24 ALT 34 Alkaline Phosphatase 160 H Lactate Dehydrogenase 335 H Total Creatine Kinase CK-MB (CK-2) CK/CKMB % Calc Troponin I 0.180 H* C-Reactive Protein 1.05 H NT-Pro-B Natriuret Pep 2661 H Total Protein 6.6 Albumin 2.8 L Globulin 3.8 Albumin/Globulin Ratio 0.7 L Procalcitonin Urine Color Urine Appearance Urine pH Ur Specific [place] Urine Protein Urine Glucose (UA) Urine Ketones Urine Blood Urine Nitrite Urine Bilirubin Urine Urobilinogen Ur Leukocyte Esterase Urine WBC (Auto) Urine RBC (Auto) U Hyaline Cast (Auto) U Epithel Cells (Auto) Urine Bacteria (Auto) Digoxin COVID-19 PCR Influenza Type A (PCR) Influenza Type B (PCR) 11/03/19 11/03/19 11/03/19 11:34 11:34 12:10 WBC RBC Hgb Hct MCV MCH MCHC RDW Std Deviation RDW Coeff of Sonja Plt Count MPV Immature Gran % (Auto) Neut % (Auto) Lymph % (Auto) [place] % (Auto) Eos % (Auto) Baso % (Auto) Immature Gran # (Auto) Neut # (Auto) Lymph # (Auto) [place] # (Auto) Eos # (Auto) Baso # (Auto) Absolute Nucleated RBC Nucleated RBC % (auto) Neutrophils % (Manual) Lymphocytes % (Manual) Reactive Lymphs % (Man) Monocytes % (Manual) Eosinophils % (Manual) Neutrophils # (Manual) Total Absolute Neuts Lymphocytes # (Manual) Reactive Lymphs # Total Abs Lymphocytes Monocytes # (Manual) Eosinophils # (Manual) Poikilocytosis Anisocytosis Acanthocytes (Spur) ESR PT INR APTT PTT Ratio Sodium Potassium Chloride Carbon Dioxide Anion Gap BUN Creatinine Est Cr Clr Drug Dosing Est GFR ( Amer) Est GFR (Non-Af Amer) BUN/Creatinine Ratio Glucose Lactate Calcium Magnesium Total Bilirubin AST ALT Alkaline Phosphatase Lactate Dehydrogenase Total Creatine Kinase CK-MB (CK-2) CK/CKMB % Calc Troponin I C-Reactive Protein NT-Pro-B Natriuret Pep Total Protein Albumin Globulin Albumin/Globulin Ratio Procalcitonin 0.16 Urine Color Yellow Urine Appearance Clear Urine pH 5.5 Ur Specific [place] 1.017 Urine Protein Negative Urine Glucose (UA) Negative Urine Ketones Negative Urine Blood Trace H Urine Nitrite Negative Urine Bilirubin Negative Urine Urobilinogen Negative Ur Leukocyte Esterase 1+ H Urine WBC (Auto) 1-5 Urine RBC (Auto) 0-4 U Hyaline Cast (Auto) 1-5 U Epithel Cells (Auto) 5-10 H Urine Bacteria (Auto) Negative Digoxin 1.0 COVID-19 PCR Influenza Type A (PCR) Influenza Type B (PCR) 11/03/19 11/03/19 11/03/19 12:34 12:34 14:00 WBC RBC Hgb Hct MCV MCH MCHC RDW Std Deviation RDW Coeff of Sonja Plt Count MPV Immature Gran % (Auto) Neut % (Auto) Lymph % (Auto) [place] % (Auto) Eos % (Auto) Baso % (Auto) Immature Gran # (Auto) Neut # (Auto) Lymph # (Auto) [place] # (Auto) Eos # (Auto) Baso # (Auto) Absolute Nucleated RBC Nucleated RBC % (auto) Neutrophils % (Manual) Lymphocytes % (Manual) Reactive Lymphs % (Man) Monocytes % (Manual) Eosinophils % (Manual) Neutrophils # (Manual) Total Absolute Neuts Lymphocytes # (Manual) Reactive Lymphs # Total Abs Lymphocytes Monocytes # (Manual) Eosinophils # (Manual) Poikilocytosis Anisocytosis Acanthocytes (Spur) ESR PT 12.3 H INR 1.2 H APTT 24.6 PTT Ratio 0.9 Sodium Potassium Chloride Carbon Dioxide Anion Gap BUN Creatinine Est Cr Clr Drug Dosing Est GFR ( Amer) Est GFR (Non-Af Amer) BUN/Creatinine Ratio Glucose Lactate 2.1 H* Calcium Magnesium Total Bilirubin AST ALT Alkaline Phosphatase Lactate Dehydrogenase Total Creatine Kinase 46 CK-MB (CK-2) 3.6 CK/CKMB % Calc 7.8 H Troponin I C-Reactive Protein NT-Pro-B Natriuret Pep Total Protein Albumin Globulin Albumin/Globulin Ratio Procalcitonin Urine Color Urine Appearance Urine pH Ur Specific [place] Urine Protein Urine Glucose (UA) Urine Ketones Urine Blood Urine Nitrite Urine Bilirubin Urine Urobilinogen Ur Leukocyte Esterase Urine WBC (Auto) Urine RBC (Auto) U Hyaline Cast (Auto) U Epithel Cells (Auto) Urine Bacteria (Auto) Digoxin COVID-19 PCR Influenza Type A (PCR) Influenza Type B (PCR) 11/03/19 11/03/19 11/03/19 17:47 Unknown Unknown WBC RBC Hgb Hct MCV MCH MCHC RDW Std Deviation RDW Coeff of Sonja Plt Count MPV Immature Gran % (Auto) Neut % (Auto) Lymph % (Auto) [place] % (Auto) Eos % (Auto) Baso % (Auto) Immature Gran # (Auto) Neut # (Auto) Lymph # (Auto) [place] # (Auto) Eos # (Auto) Baso # (Auto) Absolute Nucleated RBC Nucleated RBC % (auto) Neutrophils % (Manual) Lymphocytes % (Manual) Reactive Lymphs % (Man) Monocytes % (Manual) Eosinophils % (Manual) Neutrophils # (Manual) Total Absolute Neuts Lymphocytes # (Manual) Reactive Lymphs # Total Abs Lymphocytes Monocytes # (Manual) Eosinophils # (Manual) Poikilocytosis Anisocytosis Acanthocytes (Spur) ESR PT INR APTT PTT Ratio Sodium Potassium Chloride Carbon Dioxide Anion Gap BUN Creatinine Est Cr Clr Drug Dosing Est GFR ( Amer) Est GFR (Non-Af Amer) BUN/Creatinine Ratio Glucose Lactate Calcium Magnesium Total Bilirubin AST ALT Alkaline Phosphatase Lactate Dehydrogenase Total Creatine Kinase CK-MB (CK-2) CK/CKMB % Calc Troponin I 0.183 H* C-Reactive Protein NT-Pro-B Natriuret Pep Total Protein Albumin Globulin Albumin/Globulin Ratio Procalcitonin Urine Color Urine Appearance Urine pH Ur Specific [place] Urine Protein Urine Glucose (UA) Urine Ketones Urine Blood Urine Nitrite Urine Bilirubin Urine Urobilinogen Ur Leukocyte Esterase Urine WBC (Auto) Urine RBC (Auto) U Hyaline Cast (Auto) U Epithel Cells (Auto) Urine Bacteria (Auto) Digoxin COVID-19 PCR NEGATIVE Influenza Type A (PCR) Neg for Influ A Influenza Type B (PCR) Neg for Influ B Diagnostic Findings 1. cxr - IMPRESSION: 1. Persistent right lung airspace opacities, slightly improved since prior exam. The findings favor an infectious process. 2. Small right pleural effusion. 3. Cardiomegaly without evidence for pulmonary edema. 4. Emphysema 2. EKG - tachycardia; severe artifact; interpretation not possible for rhythm. 3. COVID-19 PCR negative. Code Status & VTE Plan Code Status full VTE Prophylaxis Plan VTE Prophylaxis will be ordered: Yes PG Care Time/CCT Total # of Minutes Spent Total Time Spent with Patient: Total time spent is greater than 50% in coordination of care (as documented) at patient's floor/unit and/or counseling patient: Coding Level of Care Code 46143 Initial Inpt Care Lvl 3 Diagnoses Sepsis A41.9 Sepsis type: sepsis due to unspecified organism Sepsis acute organ dysfunction status: unspecified Pneumonia J18.9 Laterality: unspecified laterality Lung location: unspecified part of lung Pneumonia type: due to unspecified organism Acute and chronic respiratory failure with hypoxia J96.21 COPD (chronic obstructive pulmonary disease) J44.1 COPD type: COPD with acute exacerbation Chronic atrial fibrillation I48.20 Chronic left ventricular systolic heart failure I50.22 Interstitial lung disease J84.9 ICD (implantable cardioverter-defibrillator) in place Z95.810 Elevated troponin R79.89 BPH (benign prostatic hyperplasia) N40.0 Lower urinary tract symptom presence: symptoms absent GERD (gastroesophageal reflux disease) K21.9 Esophagitis presence: esophagitis presence not specified Multiple myeloma C90.00 Multiple myeloma remission status: unspecified Lung cancer C34.11 Laterality: right Lung location: upper lobe of lung Candidiasis of mouth and esophagus B37.81; B37.0 DVT prophylaxis Z29.9 (1) BPH (benign prostatic hyperplasia) Lower urinary tract symptom presence: symptoms absent Qualified Code(s): N40.0 - Benign prostatic hyperplasia without lower urinary tract symptoms (2) Lung cancer Laterality: right Lung location: upper lobe of lung Qualified Code(s): C34.11 - Malignant neoplasm of upper lobe, right bronchus or lung (3) COPD (chronic obstructive pulmonary disease) COPD type: COPD with acute exacerbation Qualified Code(s): J44.1 - Chronic obstructive pulmonary disease with (acute) exacerbation (4) GERD (gastroesophageal reflux disease) Esophagitis presence: esophagitis presence not specified Qualified Code(s): K 21.9 - Gastro-esophageal reflux disease without esophagitis (5) Pneumonia Laterality: unspecified laterality Lung location: unspecified part of lung Pneumonia type: due to unspecified organism Qualified Code(s): J18.9 - Pneumonia, unspecified organism (6) Multiple myeloma Multiple myeloma remission status: unspecified Qualified Code(s): C90.00 - Multiple myeloma not having achieved remission (7) Sepsis Sepsis type: sepsis due to unspecified organism Sepsis acute organ dysfunction status: unspecified Qualified Code(s): A41.9 - Sepsis, unspecified organism
[2019-11-03] MEDS ORDERED: ALBUT/IPRATROP 3MG/0.5MG NEB 3 ML VIAL NEB STA (13:50)
--- NOTE | 2019-11-03 13:56 | Emergency Department Note ---
History of Present Illness General Chief complaint: Respiratory Problems Time Seen by Provider: 11/03/19 10:42 Source: patient, EMS, RN notes reviewed and old records reviewed Mode of arrival: EMS Limitations: no limitations History of Present Illness Provider complaint: Hypoxia, chest pain Onset (ago): hour(s) 2 Location: chest Current Pain Intensity: 0 Relieved By: + none (oxygen) and + immobilization Exacerbated By: + movement Associated symptoms: + shortness of breath; no chest pain Treatments prior to arrival: other (Oxygen) This is a complicated 79-year-old male who has a history of lung cancer who is currently on chemotherapy and also has COPD as well as congestive heart failure that comes to the emergency department complaining of shortness of breath. The patient is currently at a rehabilitation center. He is normally on 3 L of oxygen when he became extremely short of breath this morning. He was placed on 6 L and transferred to the emergency department. Upon arrival to the emergency department the patient has no complaints. He denies any chest pain abdominal pain. Home Medications Home Medications Medication Instructions Recorded Confirmed Type Lactobacillus acidoph-L.bulgar 1 tab PO QAM 10/20/19 11/03/19 History [Floranex] atorvastatin 80 mg PO HS 10/20/19 11/03/19 History budesonide 0.5 mg INHALATION BID 10/20/19 11/03/19 History digoxin 125 mcg PO MOWEFR 10/20/19 11/03/19 History digoxin 250 mcg PO SUTUTHSA 10/20/19 11/03/19 History ferrous sulfate 325 mg PO QDB 10/20/19 11/03/19 History finasteride [Proscar] 5 mg PO HS 10/20/19 11/03/19 History furosemide 60 mg PO QAM 10/20/19 11/03/19 History gabapentin See Rx Instructions .ROUTE .COMPLEX 10/20/19 11/03/19 History ipratropium-albuterol 3 ml INHALATION Q6H PRN 10/20/19 11/03/19 History losartan 12.5 mg PO DAILY 10/20/19 11/03/19 History metoprolol succinate 50 mg PO DAILY@1900 10/20/19 11/03/19 History mirtazapine 15 mg PO HS 10/20/19 11/03/19 History multivitamin 1 tab PO QAM 10/20/19 11/03/19 History pantoprazole 40 mg PO QAM 10/20/19 11/03/19 History tamsulosin 0.4 mg PO HS 10/20/19 11/03/19 History guaifenesin [Mucinex] 1,200 mg PO Q12 14 Days #56 tab 10/24/19 11/03/19 Rx prednisone 20 mg PO BID 14 Days #28 tab 10/24/19 11/03/19 Rx sulfamethoxazole-trimethoprim 1 tab PO DAILY 14 Days #14 tab 10/24/19 11/03/19 Rx umeclidinium [Incruse Ellipta] 1 puff INHALATION DAILY 14 Days #1 10/24/19 11/03/19 Rx ea apixaban [Eliquis] 5 mg PO Q12 11/03/19 11/03/19 History formoterol fumarate 20 mcg INHALATION BID 11/03/19 11/03/19 History jfjsylnd-igqfdekgj-odokihvcdp 2 drp OPB BID 11/03/19 11/03/19 History Allergies Allergy/AdvReac Type Severity Reaction Status Date / Time Penicillins Allergy Mild Verified 11/03/19 12:21 Sulfa (Sulfonamide Allergy Mild Verified 11/03/19 12:21 Antibiotics) LOCALANESTHETIC Allergy Mild TOLERATES Uncoded 11/03/19 12:21 LIDOCAINE Past Med/Surg History Medical History Abnormal CT scan of lung BPH (benign prostatic hyperplasia) Chronic anticoagulation Chronic respiratory failure with hypoxia Chronic systolic CHF (congestive heart failure) COPD (chronic obstructive pulmonary disease) Depression GERD (gastroesophageal reflux disease) HTN (hypertension), benign Hyperlipidemia ICD (implantable cardioverter-defibrillator) in place Interstitial lung disease Lung cancer dx 2005, RUL - s/p RUL lobectomy Multiple myeloma 2018 - dx at [facility] in [place]; follows with Dr Renee in [place] Nonischemic cardiomyopathy Pancytopenia Paroxysmal atrial fibrillation Postherpetic neuralgia Surgical History History of bursectomy History of endovascular stent graft for abdominal aortic aneurysm History of lobectomy of lung History of lumbosacral spine surgery History of permanent cardiac pacemaker placement History of tonsillectomy Status post reverse total arthroplasty of right shoulder Family History Father Heart disease Mother Lung cancer Other Family history non-contributory Social History Preferred Language: Frisian Communication Ability: Effective Communication Consultant Required: No Beliefs That Will Affect Care: None marital status: / Current Living Situation: Rehab Current Living Situation Comment: [facility] current occupational status: 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 [place] Other Information That Helps Us Care for You: No other: lives with Grand-daughter in [place]; 4 children Feels Safe at Home: Yes Smoking Status: Former smoker packs per day: 1.5 ; Years Smoked: 50 ; Number of Years Since Quit: 20 ; Hx Alcohol Use: No Hx Substance Use: No Review of Systems A total of 10 systems reviewed and were otherwise negative Physical Exam Vital Signs Vital Signs - 24 hr 11/03/19 10:46 11/03/19 10:54 11/03/19 11:00 Temperature 37.5 C Temperature Source Oral Pulse Rate 99 H 95 H Pulse Rate [Apical] Pulse Rate from SpO2 Sensor 88 Pulse Rhythm Regular Pulse Strength Normal Respiratory Rate 22 20 Respiratory Effort / Characteristics Non-Labored Spontaneous Respiratory Depth Normal Respiratory Pattern Regular Blood Pressure 119/79 Blood Pressure Mean 92 Pulse Oximetry 95 96 Oxygen Delivery Method Room Air Nasal Cannula Nasal Cannula Oxygen Flow Rate 4 4 Sepsis Recent Fever Within 48 Hours No Sepsis Action Taken by Nursing No Action Required 11/03/19 11:02 11/03/19 12:02 11/03/19 12:29 Temperature Temperature Source Pulse Rate 96 H 92 H Pulse Rate [Apical] Pulse Rate from SpO2 Sensor 102 H 86 Pulse Rhythm Pulse Strength Respiratory Rate 20 25 H Respiratory Effort / Characteristics Respiratory Depth Respiratory Pattern Blood Pressure 105/71 91/42 L Blood Pressure Mean 85 51 Pulse Oximetry 96 95 93 Oxygen Delivery Method Nasal Cannula Nasal Cannula Nasal Cannula Oxygen Flow Rate 4 4 4 Sepsis Recent Fever Within 48 Hours Sepsis Action Taken by Nursing 11/03/19 12:37 11/03/19 12:46 11/03/19 13:34 Temperature Temperature Source Pulse Rate 90 80 95 H Pulse Rate [Apical] Pulse Rate from SpO2 Sensor 87 87 90 Pulse Rhythm Pulse Strength Respiratory Rate 29 H 28 H 22 Respiratory Effort / Characteristics Respiratory Depth Respiratory Pattern Blood Pressure 111/82 100/64 117/61 Blood Pressure Mean 109 67 77 Pulse Oximetry 93 94 94 Oxygen Delivery Method Nasal Cannula Nasal Cannula Nasal Cannula Oxygen Flow Rate 4 4 4 Sepsis Recent Fever Within 48 Hours Sepsis Action Taken by Nursing 11/03/19 13:46 11/03/19 14:00 11/03/19 14:08 Temperature Temperature Source Pulse Rate 71 80 Pulse Rate [Apical] 79 Pulse Rate from SpO2 Sensor 71 80 Pulse Rhythm Pulse Strength Respiratory Rate 26 H 22 20 Respiratory Effort / Characteristics Spontaneous Short of Breath Respiratory Depth Respiratory Pattern Blood Pressure 112/59 L 97/70 L Blood Pressure Mean 91 77 Pulse Oximetry 93 96 95 Oxygen Delivery Method Nasal Cannula Nasal Cannula Nasal Cannula Oxygen Flow Rate 4 4 4 Sepsis Recent Fever Within 48 Hours Sepsis Action Taken by Nursing VITAL SIGNS - Vital signs and nursing notes were reviewed. GENERAL - 79-year-old male appearing stated age who is in no acute distress. Communicates well with provider and answers questions appropriately. SKIN - Without rashes. HEAD - NC/AT. EYES - PERRL with EOMI bilaterally. Sclera anicteric. Palpebral conjunctiva pink and moist with no injection noted. EARS - No deformities of external structures noted on gross examination bilaterally. No pain elicited with palpation of the tragus bilaterally. External auditory canals without discharge or otorrhea. Tympanic membranes pearly trotter without retraction or bulging. No fluid or purulent material visualized behind the TM. Handle of malleus, umbo, cone of light, pars tensa/flaccid all easily visualized. NOSE - Midline and without cyanosis. No epistaxis or purulent drainage noted. Septum midline without deviation or septal hematoma noted. MOUTH/OROPHARYNX - Without perioral cyanosis. Buccal mucosa pink and moist and without leukoplakia. Tongue midline with equal elevation of palate bilaterally. No tonsillar hypertrophy, erythema, or exudates noted. dentition noted. NECK - Neck with FROM. Supple to palpation. lymphadenopathy noted. No nuchal rigidity. LUNGS - Chest wall symmetric without accessory muscle use, intercostals retractions, or central cyanosis. Wheezing throughout B/L. No wheezes, rales, or rhonchi appreciated. CARDIAC - RRR with S1/S2. No murmur, rubs, or gallops appreciated. ABDOMEN - Abdominal contour without pulsations or visible masses. BS normoactive all four quadrants. No tenderness, palpable masses, hepatosplenomegaly, or ascites noted. EXTREMITIES - No clubbing or peripheral cyanosis. No pretibial edema present. +3/5 radial, posterior tibial, and dorsalis pedis pulses palpated throughout. +5/5 strength noted in UE/LE bilaterally. NEUROLOGIC - Cranial nerves II through XII grossly intact. Sensory intact to light touch throughout. Patellar reflexes +2/4. PSYCH - A&Ox3 and cooperates fully with examiner. Pt is very pleasant and interacts well with examiner. Course Administered Medications Albuterol (Duoneb) 3 ml INH Q4R [facility] Stop: 12/03/19 16:06 Last Admin: 11/04/19 07:08 Dose: Not Given Documented by: [id number] Admin: 11/04/19 03:00 Dose: 3 ml Documented by: [id number] Admin: 11/03/19 22:51 Dose: 3 ml Documented by: [id number] Admin: 11/03/19 21:03 Dose: Not Given Documented by: [id number] Admin: 11/03/19 16:43 Dose: Not Given Documented by: [id number] Apixaban (Eliquis) 5 mg PO Q12 [facility] Stop: 12/03/19 20:59 Last Admin: 11/04/19 07:55 Dose: 5 mg Documented by: [id number] Admin: 11/03/19 19:51 Dose: 5 mg Documented by: [id number] Atorvastatin Calcium (Lipitor) 80 mg PO [facility] Stop: 12/03/19 20:59 Last Admin: 11/03/19 19:51 Dose: 80 mg Documented by: [id number] Digoxin (Lanoxin) 0.25 mg PO [id number]@0900 [facility] Stop: 12/04/19 08:59 Last Admin: 11/04/19 07:54 Dose: 0.25 mg Documented by: [id number] Digoxin (Lanoxin) 0.125 mg PO [email or web address]@0900 [facility] Stop: 12/03/19 16:59 Last Admin: 11/03/19 18:07 Dose: 0.125 mg Documented by: [id number] Ferrous Sulfate (Feosol) 325 mg PO QDB [facility] Stop: 12/04/19 07:29 Last Admin: 11/04/19 07:52 Dose: 325 mg Documented by: [id number] Finasteride (Proscar) 5 mg PO [facility] Stop: 12/03/19 20:59 Last Admin: 11/03/19 19:52 Dose: 5 mg Documented by: [id number] Formoterol Fumarate (Perforomist) 20 mcg INH BIDR [facility] Stop: 12/03/19 18:59 Last Admin: 11/04/19 07:04 Dose: 20 mcg Documented by: [id number] Admin: 11/03/19 19:04 Dose: 20 mcg Documented by: [id number] Furosemide (Lasix) 60 mg PO QAM [facility] Stop: 12/04/19 08:59 Last Admin: 11/04/19 07:52 Dose: 60 mg Documented by: [id number] Gabapentin (Neurontin) 900 mg PO Q12H [facility] Stop: 12/03/19 19:59 Last Admin: 11/04/19 07:55 Dose: 900 mg Documented by: [id number] Admin: 11/03/19 19:53 Dose: 900 mg Documented by: [id number] Guaifenesin (Mucinex) 1,200 mg PO Q12 [facility] Stop: 12/03/19 20:59 Last Admin: 11/04/19 07:53 Dose: 1,200 mg Documented by: [id number] Admin: 11/03/19 19:54 Dose: 1,200 mg Documented by: [id number] Methylprednisolone 40 mg/ (Syringe) 0.64 mls @ 1.5 mls/min IV Q6H [facility] Stop: 12/03/19 19:59 Last Admin: 11/04/19 07:51 Dose: 1.5 mls/min Documented by: [id number] Admin: 11/04/19 00:48 Dose: 1.5 mls/min Documented by: [id number] Admin: 11/03/19 19:51 Dose: 1.5 mls/min Documented by: [id number] Cefepime HCl 2,000 mg/ Syringe 20 mls @ 5.5 mls/min IV Q8H [facility]; Protocol Stop: 11/10/19 19:59 Last Admin: 11/04/19 02:48 Dose: 5.5 mls/min Documented by: [id number] Admin: 11/03/19 19:49 Dose: 5.5 mls/min Documented by: [id number] Lactobacillus Acidophilus (Floranex) 1 tab PO QAM [facility] Stop: 12/04/19 08:59 Last Admin: 11/04/19 07:52 Dose: 1 tab Documented by: [id number] Metoprolol Succinate (Toprol Xl) 50 mg PO DAILY@1900 [facility] Stop: 12/03/19 18:59 Last Admin: 11/03/19 19:53 Dose: 50 mg Documented by: [id number] Mirtazapine (Remeron) 15 mg PO HS [facility] Stop: 12/03/19 20:59 Last Admin: 11/03/19 19:55 Dose: 15 mg Documented by: [id number] Multivitamins (Multivitamin Tab) 1 tab PO QAM [facility] Stop: 12/04/19 08:59 Last Admin: 11/04/19 07:52 Dose: 1 tab Documented by: [id number] Neomycin/Polymyxin/Gramicidin (Neosporin) 2 drops OPB BID [facility] Stop: 12/03/19 20:59 Last Admin: 11/04/19 07:53 Dose: 2 drops Documented by: [id number] Admin: 11/03/19 22:14 Dose: 2 drops Documented by: [id number] Nystatin (Mycostatin) 5 ml PO QID [facility] Stop: 11/13/19 16:59 Last Admin: 11/04/19 07:53 Dose: 5 ml Documented by: [id number] Admin: 11/03/19 19:56 Dose: 5 ml Documented by: [id number] Admin: 11/03/19 18:07 Dose: 5 ml Documented by: [id number] Pantoprazole Sodium (Protonix) 40 mg PO QAM [facility] Stop: 12/04/19 08:59 Last Admin: 11/04/19 07:52 Dose: 40 mg Documented by: [id number] Tamsulosin HCl (Flomax) 0.4 mg PO [facility] Stop: 12/03/19 20:59 Last Admin: 11/03/19 19:54 Dose: 0.4 mg Documented by: [id number] Trimethoprim/Sulfamethoxazole (Septra Ds 800/160mg Tab) 1 tab PO DAILY [facility] Stop: 12/04/19 08:59 Last Admin: 11/04/19 07:52 Dose: 1 tab Documented by: [id number] Umeclidinium [place] (Incruse Ellipta) 1 puffs INH DAILY [facility] Stop: 12/04/19 08:59 Last Admin: 11/04/19 07:54 Dose: 1 puffs Documented by: [id number] Discontinued Medications Albuterol (Duoneb) 6 ml NEB NOW STA Stop: 11/03/19 13:51 Last Admin: 11/03/19 14:55 Dose: 6 ml Documented by: [id number] Aspirin (Aspirin) 324 mg PO NOW STA Stop: 11/03/19 11:48 Last Admin: 11/03/19 12:03 Dose: 324 mg Documented by: [id number] Cefepime HCl (Maxipime) 2,000 mg in 20 mls @ 5 mls/min IV NOW STA Stop: 11/03/19 11:28 Last Admin: 11/03/19 12:04 Dose: 5 mls/min Documented by: [id number] Levofloxacin/Dextrose (Levaquin/D5w) 750 mg in 150 mls @ 100 mls/hr IV NOW STA Stop: 11/03/19 12:54 Last Admin: 11/03/19 12:18 Dose: Not Given Documented by: [id number] Magnesium Sulfate/Dextrose (Magnesium Sulfate / D5w) 1 gm in 100 mls @ 50 mls/hr IV ONE ONE Stop: 11/03/19 14:09 Last Infusion: 11/03/19 14:27 Dose: 0 mls/hr Documented by: [id number] Admin: 11/03/19 12:25 Dose: 50 mls/hr Documented by: [id number] Levalbuterol HCl (Xopenex Hfa) 6 puffs INH NOW STA Stop: 11/03/19 10:53 Last Admin: 11/03/19 11:26 Dose: 6 puffs Documented by: [id number] Levofloxacin (Levaquin) 750 mg PO ONE ONE Stop: 11/03/19 12:13 Last Admin: 11/03/19 12:26 Dose: 750 mg Documented by: [id number] Methylprednisolone (Solumedrol) 60 mg IV NOW STA Stop: 11/03/19 14:02 Last Admin: 11/03/19 14:46 Dose: Not Given Documented by: [id number] Methylprednisolone (Solumedrol) Confirm Administered Dose 125 mg .ROUTE .STK-MED ONE Stop: 11/03/19 14:37 Last Admin: 11/03/19 14:39 Dose: 60 mg Documented by: [id number] Nitroglycerin (Nitrostat) 0.4 mg SL NOW STA Stop: 11/03/19 11:48 Last Admin: 11/03/19 12:04 Dose: 0.4 mg Documented by: [id number] Nitroglycerin (Nitro-Bid 2%) 1 inch EXT NOW STA Stop: 11/03/19 12:22 Last Admin: 11/03/19 12:26 Dose: 1 inch Documented by: [id number] Medical Decision Making Differential Diagnosis Reactive airway disease, pneumonia, pneumothorax, COPD, CHF, infections, cardiac ischemia, pulmonary embolism, musculoskeletal, gastrointestinal, as well as other pathologies. Medical Records Attestation: I reviewed the patient's medical records. Home Medications Current Medication List: was personally reviewed by me Laboratory Data Attestation: I reviewed the patient's lab results. Result diagrams: 11/04/19 06:41 11/04/19 06:41 Lab Results 11/03/19 11/03/19 11/03/19 Range/Units 11:34 11:34 11:34 WBC 6.73 (4.8-10.8) K/uL RBC 3.77 L (4.7-6.1) M/uL Hgb 10.9 L (14.0-18.0) g/dL Hct 34.0 L (42-52) % MCV 90.2 (80-100) fL MCH 28.9 (25-34) pg MCHC 32.1 (32-36) g/dL RDW Std Deviation 64.8 H (36.4-46.3) fL RDW Coeff of Sonja 20.3 H (11.5-14.5) % Plt Count 113 L (130-400) K/uL MPV 9.6 (7.4-10.4) fL Immature Gran % (Auto) 0.4 % Neut % (Auto) 81.9 % Lymph % (Auto) 14.0 % Glenn % (Auto) 1.3 % Eos % (Auto) 0.0 % Baso % (Auto) 2.4 % Immature Gran # (Auto) 0.03 H (0.00-0.02) K/uL Neut # (Auto) 5.51 (1.4-6.5) K/uL Lymph # (Auto) 0.94 L (1.2-3.4) K/uL Glenn # (Auto) 0.09 L (0.11-0.59) K/uL Eos # (Auto) 0.00 (0-0.5) K/uL Baso # (Auto) 0.16 (0-0.2) K/uL Absolute Nucleated RBC 0.07 H (0-0) K/uL Nucleated RBC % (auto) 1.1 % Neutrophils % (Manual) 82.8 % Lymphocytes % (Manual) 1.7 % Reactive Lymphs % (Man) 12.9 % Monocytes % (Manual) 1.7 % Eosinophils % (Manual) 0.9 % Neutrophils # (Manual) 5.57 (1.4-6.5) K/uL Total Absolute Neuts 5.57 (1.4-6.5) K/uL Lymphocytes # (Manual) 0.11 L (1.2-3.4) K/uL Reactive Lymphs # 0.87 K/uL Total Abs Lymphocytes 0.98 L (1.2-3.4) K/uL Monocytes # (Manual) 0.11 (0.11-0.59) K/uL Eosinophils # (Manual) 0.06 (0-0.5) K/uL Poikilocytosis Present Anisocytosis Present Acanthocytes (Spur) 1+ ESR 18 H (0-14) mm/hr PT Cancelled INR Cancelled APTT Cancelled PTT Ratio Cancelled Sodium (136-145) mmol/L Potassium (3.5-5.1) mmol/L Chloride (98-107) mmol/L Carbon Dioxide (21-32) mmol/L Anion Gap (3-11) BUN (7-18) mg/dl Creatinine (0.6-1.4) mg/dl Est Cr Clr Drug Dosing ml/min Est GFR ( Amer) Est GFR (Non-Af Amer) BUN/Creatinine Ratio (10-20) Glucose (70-99) mg/dl Lactate (0.4-2.0) mmol/L Calcium (8.5-10.1) mg/dl Magnesium (1.8-2.4) mg/dl Total Bilirubin (0.2-1) mg/dl AST (15-37) U/L ALT (12-78) U/L Alkaline Phosphatase (45-117) U/L Lactate Dehydrogenase (87-241) U/L Total Creatine Kinase (39-308) U/L CK-MB (CK-2) (0.5-3.6) ng/ml CK/CKMB % Calc (0-3.0) Troponin I (0-0.045) ng/ml C-Reactive Protein (0-0.29) mg/dl NT-Pro-B Natriuret Pep (0-1800) pg/ml Total Protein (6.4-8.2) gm/dl Albumin (3.4-5.0) gm/dl Globulin (2.5-4.0) gm/dl Albumin/Globulin Ratio (0.9-2) Procalcitonin (0-0.5) ng/ml Urine Color Urine Appearance (Clear) Urine pH (4.5-7.5) Ur Specific [place] (1.000-1.030) Urine Protein (Negative) Urine Glucose (UA) (Negative) Urine Ketones (Negative) Urine Blood (Negative) Urine Nitrite (Negative) Urine Bilirubin (Negative) Urine Urobilinogen (Negative) Ur Leukocyte Esterase (Negative) Urine WBC (Auto) (0-5) /hpf Urine RBC (Auto) (0-4) /hpf U Hyaline Cast (Auto) (0-5) /lpf U Epithel Cells (Auto) (0-5) /lpf Urine Bacteria (Auto) (Negative) Digoxin (0.8-2.0) ng/ml 11/03/19 11/03/19 11/03/19 Range/Units 11:34 11:34 11:34 WBC (4.8-10.8) K/uL RBC (4.7-6.1) M/uL Hgb (14.0-18.0) g/dL Hct (42-52) % MCV (80-100) fL MCH (25-34) pg MCHC (32-36) g/dL RDW Std Deviation (36.4-46.3) fL RDW Coeff of Sonja (11.5-14.5) % Plt Count (130-400) K/uL MPV (7.4-10.4) fL Immature Gran % (Auto) % Neut % (Auto) % Lymph % (Auto) % Glenn % (Auto) % Eos % (Auto) % Baso % (Auto) % Immature Gran # (Auto) (0.00-0.02) K/uL Neut # (Auto) (1.4-6.5) K/uL Lymph # (Auto) (1.2-3.4) K/uL Glenn # (Auto) (0.11-0.59) K/uL Eos # (Auto) (0-0.5) K/uL Baso # (Auto) (0-0.2) K/uL Absolute Nucleated RBC (0-0) K/uL Nucleated RBC % (auto) % Neutrophils % (Manual) % Lymphocytes % (Manual) % Reactive Lymphs % (Man) % Monocytes % (Manual) % Eosinophils % (Manual) % Neutrophils # (Manual) (1.4-6.5) K/uL Total Absolute Neuts (1.4-6.5) K/uL Lymphocytes # (Manual) (1.2-3.4) K/uL Reactive Lymphs # K/uL Total Abs Lymphocytes (1.2-3.4) K/uL Monocytes # (Manual) (0.11-0.59) K/uL Eosinophils # (Manual) (0-0.5) K/uL Poikilocytosis Anisocytosis Acanthocytes (Spur) ESR (0-14) mm/hr PT INR APTT PTT Ratio Sodium 138 (136-145) mmol/L Potassium 4.2 (3.5-5.1) mmol/L Chloride 98 (98-107) mmol/L Carbon Dioxide 35 H (21-32) mmol/L Anion Gap 5.0 (3-11) BUN 53 H (7-18) mg/dl Creatinine 0.92 (0.6-1.4) mg/dl Est Cr Clr Drug Dosing 75.3 ml/min Est GFR ( Amer) 90.1 Est GFR (Non-Af Amer) 77.7 BUN/Creatinine Ratio 57.0 H (10-20) Glucose 77 (70-99) mg/dl Lactate 2.6 H* (0.4-2.0) mmol/L Calcium 8.9 (8.5-10.1) mg/dl Magnesium 2.2 (1.8-2.4) mg/dl Total Bilirubin 0.6 (0.2-1) mg/dl AST 24 (15-37) U/L ALT 34 (12-78) U/L Alkaline Phosphatase 160 H (45-117) U/L Lactate Dehydrogenase 335 H (87-241) U/L Total Creatine Kinase (39-308) U/L CK-MB (CK-2) (0.5-3.6) ng/ml CK/CKMB % Calc (0-3.0) Troponin I 0.180 H* (0-0.045) ng/ml C-Reactive Protein 1.05 H (0-0.29) mg/dl NT-Pro-B Natriuret Pep 2661 H (0-1800) pg/ml Total Protein 6.6 (6.4-8.2) gm/dl Albumin 2.8 L (3.4-5.0) gm/dl Globulin 3.8 (2.5-4.0) gm/dl Albumin/Globulin Ratio 0.7 L (0.9-2) Procalcitonin (0-0.5) ng/ml Urine Color Urine Appearance (Clear) Urine pH (4.5-7.5) Ur Specific [place] (1.000-1.030) Urine Protein (Negative) Urine Glucose (UA) (Negative) Urine Ketones (Negative) Urine Blood (Negative) Urine Nitrite (Negative) Urine Bilirubin (Negative) Urine Urobilinogen (Negative) Ur Leukocyte Esterase (Negative) Urine WBC (Auto) (0-5) /hpf Urine RBC (Auto) (0-4) /hpf U Hyaline Cast (Auto) (0-5) /lpf U Epithel Cells (Auto) (0-5) /lpf Urine Bacteria (Auto) (Negative) Digoxin (0.8-2.0) ng/ml 11/03/19 11/03/19 11/03/19 Range/Units 11:34 11:34 12:10 WBC (4.8-10.8) K/uL RBC (4.7-6.1) M/uL Hgb (14.0-18.0) g/dL Hct (42-52) % MCV (80-100) fL MCH (25-34) pg MCHC (32-36) g/dL RDW Std Deviation (36.4-46.3) fL RDW Coeff of Sonja (11.5-14.5) % Plt Count (130-400) K/uL MPV (7.4-10.4) fL Immature Gran % (Auto) % Neut % (Auto) % Lymph % (Auto) % Glenn % (Auto) % Eos % (Auto) % Baso % (Auto) % Immature Gran # (Auto) (0.00-0.02) K/uL Neut # (Auto) (1.4-6.5) K/uL Lymph # (Auto) (1.2-3.4) K/uL Glenn # (Auto) (0.11-0.59) K/uL Eos # (Auto) (0-0.5) K/uL Baso # (Auto) (0-0.2) K/uL Absolute Nucleated RBC (0-0) K/uL Nucleated RBC % (auto) % Neutrophils % (Manual) % Lymphocytes % (Manual) % Reactive Lymphs % (Man) % Monocytes % (Manual) % Eosinophils % (Manual) % Neutrophils # (Manual) (1.4-6.5) K/uL Total Absolute Neuts (1.4-6.5) K/uL Lymphocytes # (Manual) (1.2-3.4) K/uL Reactive Lymphs # K/uL Total Abs Lymphocytes (1.2-3.4) K/uL Monocytes # (Manual) (0.11-0.59) K/uL Eosinophils # (Manual) (0-0.5) K/uL Poikilocytosis Anisocytosis Acanthocytes (Spur) ESR (0-14) mm/hr PT INR APTT PTT Ratio Sodium (136-145) mmol/L Potassium (3.5-5.1) mmol/L Chloride (98-107) mmol/L Carbon Dioxide (21-32) mmol/L Anion Gap (3-11) BUN (7-18) mg/dl Creatinine (0.6-1.4) mg/dl Est Cr Clr Drug Dosing ml/min Est GFR ( Amer) Est GFR (Non-Af Amer) BUN/Creatinine Ratio (10-20) Glucose (70-99) mg/dl Lactate (0.4-2.0) mmol/L Calcium (8.5-10.1) mg/dl Magnesium (1.8-2.4) mg/dl Total Bilirubin (0.2-1) mg/dl AST (15-37) U/L ALT (12-78) U/L Alkaline Phosphatase (45-117) U/L Lactate Dehydrogenase (87-241) U/L Total Creatine Kinase (39-308) U/L CK-MB (CK-2) (0.5-3.6) ng/ml CK/CKMB % Calc (0-3.0) Troponin I (0-0.045) ng/ml C-Reactive Protein (0-0.29) mg/dl NT-Pro-B Natriuret Pep (0-1800) pg/ml Total Protein (6.4-8.2) gm/dl Albumin (3.4-5.0) gm/dl Globulin (2.5-4.0) gm/dl Albumin/Globulin Ratio (0.9-2) Procalcitonin 0.16 (0-0.5) ng/ml Urine Color Yellow Urine Appearance Clear (Clear) Urine pH 5.5 (4.5-7.5) Ur Specific [place] 1.017 (1.000-1.030) Urine Protein Negative (Negative) Urine Glucose (UA) Negative (Negative) Urine Ketones Negative (Negative) Urine Blood Trace H (Negative) Urine Nitrite Negative (Negative) Urine Bilirubin Negative (Negative) Urine Urobilinogen Negative (Negative) Ur Leukocyte Esterase 1+ H (Negative) Urine WBC (Auto) 1-5 (0-5) /hpf Urine RBC (Auto) 0-4 (0-4) /hpf U Hyaline Cast (Auto) 1-5 (0-5) /lpf U Epithel Cells (Auto) 5-10 H (0-5) /lpf Urine Bacteria (Auto) Negative (Negative) Digoxin 1.0 (0.8-2.0) ng/ml 11/03/19 11/03/19 11/03/19 Range/Units 12:34 12:34 14:00 WBC (4.8-10.8) K/uL RBC (4.7-6.1) M/uL Hgb (14.0-18.0) g/dL Hct (42-52) % MCV (80-100) fL MCH (25-34) pg MCHC (32-36) g/dL RDW Std Deviation (36.4-46.3) fL RDW Coeff of Sonja (11.5-14.5) % Plt Count (130-400) K/uL MPV (7.4-10.4) fL Immature Gran % (Auto) % Neut % (Auto) % Lymph % (Auto) % Glenn % (Auto) % Eos % (Auto) % Baso % (Auto) % Immature Gran # (Auto) (0.00-0.02) K/uL Neut # (Auto) (1.4-6.5) K/uL Lymph # (Auto) (1.2-3.4) K/uL Glenn # (Auto) (0.11-0.59) K/uL Eos # (Auto) (0-0.5) K/uL Baso # (Auto) (0-0.2) K/uL Absolute Nucleated RBC (0-0) K/uL Nucleated RBC % (auto) % Neutrophils % (Manual) % Lymphocytes % (Manual) % Reactive Lymphs % (Man) % Monocytes % (Manual) % Eosinophils % (Manual) % Neutrophils # (Manual) (1.4-6.5) K/uL Total Absolute Neuts (1.4-6.5) K/uL Lymphocytes # (Manual) (1.2-3.4) K/uL Reactive Lymphs # K/uL Total Abs Lymphocytes (1.2-3.4) K/uL Monocytes # (Manual) (0.11-0.59) K/uL Eosinophils # (Manual) (0-0.5) K/uL Poikilocytosis Anisocytosis Acanthocytes (Spur) ESR (0-14) mm/hr PT 12.3 H INR 1.2 H APTT 24.6 PTT Ratio 0.9 Sodium (136-145) mmol/L Potassium (3.5-5.1) mmol/L Chloride (98-107) mmol/L Carbon Dioxide (21-32) mmol/L Anion Gap (3-11) BUN (7-18) mg/dl Creatinine (0.6-1.4) mg/dl Est Cr Clr Drug Dosing ml/min Est GFR ( Amer) Est GFR (Non-Af Amer) BUN/Creatinine Ratio (10-20) Glucose (70-99) mg/dl Lactate 2.1 H* (0.4-2.0) mmol/L Calcium (8.5-10.1) mg/dl Magnesium (1.8-2.4) mg/dl Total Bilirubin (0.2-1) mg/dl AST (15-37) U/L ALT (12-78) U/L Alkaline Phosphatase (45-117) U/L Lactate Dehydrogenase (87-241) U/L Total Creatine Kinase 46 (39-308) U/L CK-MB (CK-2) 3.6 (0.5-3.6) ng/ml CK/CKMB % Calc 7.8 H (0-3.0) Troponin I (0-0.045) ng/ml C-Reactive Protein (0-0.29) mg/dl NT-Pro-B Natriuret Pep (0-1800) pg/ml Total Protein (6.4-8.2) gm/dl Albumin (3.4-5.0) gm/dl Globulin (2.5-4.0) gm/dl Albumin/Globulin Ratio (0.9-2) Procalcitonin (0-0.5) ng/ml Urine Color Urine Appearance (Clear) Urine pH (4.5-7.5) Ur Specific [place] (1.000-1.030) Urine Protein (Negative) Urine Glucose (UA) (Negative) Urine Ketones (Negative) Urine Blood (Negative) Urine Nitrite (Negative) Urine Bilirubin (Negative) Urine Urobilinogen (Negative) Ur Leukocyte Esterase (Negative) Urine WBC (Auto) (0-5) /hpf Urine RBC (Auto) (0-4) /hpf U Hyaline Cast (Auto) (0-5) /lpf U Epithel Cells (Auto) (0-5) /lpf Urine Bacteria (Auto) (Negative) Digoxin (0.8-2.0) ng/ml Imaging Data Radiologist's Impression: [place], [place] [phone] XRay Report Patient: THOMAS SCHMITT Date: 11/03/19 MR#: [id number]: [address] [facility] Acct ID:[id number]: Date: 1940[facility] Zip: [place] [address] Age: 79Location: Sex: M Room/Bed: Att Phy:Diagnosis: RESP Karmen Phy: [facility] Date: 11/03/19 Fam Phy:Interpreting Phy: Morgan Dockery MD Admit Phy: Ordering Phy: Jean-Paul Taylor MD cc: ~ XR chest 1V portable CLINICAL HISTORY: Sepsis. Cough. COMPARISON STUDY: Chest radiograph and chest CT October 20, 2019. FINDINGS: Postoperative findings within the right hemithorax are noted. A right shoulder arthroplasty and left subclavian pacer/AICD are place. Emphysema is again noted. Note is made of cardiomegaly without evidence for pulmonary edema. Right lung airspace opacities are noted. This is slightly improved since prior exam. There is a trace right pleural effusion. IMPRESSION: 1. Persistent right lung airspace opacities, slightly improved since prior exam. The findings favor an infectious process. 2. Small right pleural effusion. 3. Cardiomegaly without evidence for pulmonary edema. 4. Emphysema. ACT 112: Negative or not required by law. Electronically signed by: Morgan Dockery M.D. 11/03/2019 11:19 AM Dictated: 11/03/19 1116 Transcribed: 11/03/19 111 ECG Data Attestation: I personally reviewed and interpreted this ECG as follows: Indication: + chest pain Rate (beats per minute): 75 Rhythm: + atrial fibrillation ECG [place]: + Normal ECG ST segments: no ST depression and no ST elevation Comparison ECG Date: from (10/21/2019) Change: the following changes noted (a fib replaced paced rythym) MDM Narrative This is an 79-year-old male who presents emergency department with increased oxygen demands. He was just admitted to the hospital for pneumonia and continues to have opacities on his chest x-ray therefore he was started on broad-spectrum antibiotics. His troponin is elevated. His chest pain was relieved by nitro. He was given an albuterol inhaler to use while in the emergency department. I did discuss the case with the hospitalist service who did agree to admit the patient. Patient is in agreement with the treatment plan. Patient was seen and evaluated as above in room A9. Review was performed of nursing notes and vital signs. I did review pertinent previous visits and patient history. After obtaining a thorough history and physical examination the above work up was performed. An order was placed for continuous cardiac monitoring. The monitor shows a rate of 68 with Atrial Fib rhythm. The patient was evaluated during the global COVID-19 pandemic, and that diagnosis was suspected/considered upon their initial presentation. Their evaluation, treatment and testing was consistent with current guidelines for patients who present with complaints or symptoms that may be related to COVID- 19. Impression & Plan Elevated troponin, SIRS (systemic inflammatory response syndrome), Fever Discharge Plan Visit Data *Final* Discharge Date/Time: 11/03/19 15:48 Chief Complaint: Respiratory Problems ED Provider: Jean-Paul Taylor Discharge Problem: Elevated troponin, SIRS (systemic inflammatory response syndrome), Fever Patient Disposition: Admitted As Inpatient Discharge Instructions Interventions: ED Discharge Assessment Last Done: 11/03/19 15:48 Discharge Problem: Fever Qualifiers: Fever type: unspecified Qualified Code(s): R50.9 - Fever, unspecified
[2019-11-03] MEDS ORDERED: methylPREDNISolone 125 MG/2 ML VIAL IV STA (14:01)
[2019-11-03] MEDS ORDERED: methylPREDNISolone 125 MG/2 ML VIAL ONE (14:36)
--- NOTE | 2019-11-03 15:26 | Pulmonary Consultation ---
Date of Consultation November 03, 2019 Assessment & Plan (1) Acute and chronic respiratory failure with hypoxia: 79-year-old male with past medical history of lung cancer 2006 status post right upper lobectomy, COPD on 3 L nasal cannula at baseline, MDS used to be on leflunomide who was recently admitted to the hospital with multilobar pneumonia was discharged on long taper of steroids along with Bactrim prophylaxis was discharged to a rehab is readmitted because of shortness of ora ath. Chest x-ray 11/03/2019:Portable film, there are infiltrates appreciated on the right side but there is significant improvement compared to the chest x-ray and CAT scan done on 10/20/2019 --Acute on chronic hypoxic respiratory failure Likely secondary to COPD exacerbation Looking at the chest x-ray there is improvement in the infiltrates compared to chest x-ray done on 10/20/2019 I would continue with antibiotics for the time being and follow-up septic work- up ESR 18, CRP 1.05, procalcitonin 0.16, Covid-19: Negative, influenza negative BNP 2661, this is also less than when he was admitted approximately 2 weeks ago. 2D echo 10/20/2019: EF: 35-40%, RVSP 30-40 mmHg Continue with diuresis as tolerated Continue with O2 supplementation to keep oxygen between 88-92% Continue with inhaled bronchodilators, steroids. BiPAP nightly and PRN shortness of breath --Severe COPD with emphysema Plan as above -- History of lung cancer Status post right upper lobectomy, chemo and radiation --CHF EF 35-40% Continue with diuresis --Plan: The chest x-ray looks better compared to the one on previous admission. I do think patient has a component of pneumonitis which is responding to prednisone which she was taking at home. (2) Multiple myeloma: (3) Lung cancer: (4) Pneumonia: Laterality: unspecified laterality Lung location: unspecified part of lung Pneumonia type: due to unspecified organism Qualified Code(s): J18.9 - Pneumonia, unspecified organism History of Present Illness History of Present Illness 79-year-old male with past medical history of lung cancer 2006 status post right upper lobectomy, COPD/emphysema on 3 L nasal cannula at baseline, MDS used to be on leflunomide who was recently admitted to the hospital with multilo bar pneumonia was discharged on long taper of steroids along with Bactrim prophylaxis was discharged to a rehab Patient was readmitted today as he was complaining of shortness of breath. He states that he was doing well till yesterday. But when he woke up and went to the bathroom today that when he got short of breath. He denies any chest pain, no dizziness, no headache, no palpitation at that time. Patient does get bouts of coughing fit where he really get short of breath. Patient denies any increase in intensity or frequency of coughing. Denies any significant phlegm. Patient has not been taking his leflunomide as he is on the 7-day off. Smoking: Greater than [id number] smoking history, quit approximately 20 years ago. Allergies Allergy/AdvReac Type Severity Reaction Status Date / Time Penicillins Allergy Mild Verified 11/03/19 12:21 Sulfa (Sulfonamide Allergy Mild Verified 11/03/19 12:21 Antibiotics) LOCALANESTHETIC Allergy Mild TOLERATES Uncoded 11/03/19 12:21 LIDOCAINE Home Medications Home Medications Medication Instructions Recorded Confirmed Type Lactobacillus acidoph-L.bulgar 1 tab PO QAM 10/20/19 11/03/19 History [Floranex] atorvastatin 80 mg PO HS 10/20/19 11/03/19 History budesonide 0.5 mg INHALATION BID 10/20/19 11/03/19 History digoxin 125 mcg PO MOWEFR 10/20/19 11/03/19 History digoxin 250 mcg PO SUTUTHSA 10/20/19 11/03/19 History ferrous sulfate 325 mg PO QDB 10/20/19 11/03/19 History finasteride [Proscar] 5 mg PO HS 10/20/19 11/03/19 History furosemide 60 mg PO QAM 10/20/19 11/03/19 History gabapentin See Rx Instructions .ROUTE .COMPLEX 10/20/19 11/03/19 History ipratropium-albuterol 3 ml INHALATION Q6H PRN 10/20/19 11/03/19 History losartan 12.5 mg PO DAILY 10/20/19 11/03/19 History metoprolol succinate 50 mg PO DAILY@1900 10/20/19 11/03/19 History mirtazapine 15 mg PO HS 10/20/19 11/03/19 History multivitamin 1 tab PO QAM 10/20/19 11/03/19 History pantoprazole 40 mg PO QAM 10/20/19 11/03/19 History tamsulosin 0.4 mg PO HS 10/20/19 11/03/19 History guaifenesin [Mucinex] 1,200 mg PO Q12 14 Days #56 tab 10/24/19 11/03/19 Rx prednisone 20 mg PO BID 14 Days #28 tab 10/24/19 11/03/19 Rx sulfamethoxazole-trimethoprim 1 tab PO DAILY 14 Days #14 tab 10/24/19 11/03/19 Rx umeclidinium [Incruse Ellipta] 1 puff INHALATION DAILY 14 Days #1 10/24/19 Rx ea apixaban [Eliquis] 5 mg PO Q12 11/03/19 11/03/19 History formoterol fumarate 20 mcg INHALATION BID 11/03/19 11/03/19 History sbzjgrfe-rvisnrvpq-kngwufavnc 2 drp OPB BID 11/03/19 11/03/19 History Patient History Medical History (Updated 11/03/19 @ 14:12 by Juliano Chauhan) Abnormal CT scan of lung BPH (benign prostatic hyperplasia) Chronic anticoagulation Chronic respiratory failure with hypoxia Chronic systolic CHF (congestive heart failure) COPD (chronic obstructive pulmonary disease) Depression GERD (gastroesophageal reflux disease) HTN (hypertension), benign Hyperlipidemia ICD (implantable cardioverter-defibrillator) in place Interstitial lung disease Lung cancer dx 2005, RUL - s/p RUL lobectomy Multiple myeloma 2018 - dx at [facility] in [place]; follows with Dr Renee in [place] Nonischemic cardiomyopathy Pancytopenia Paroxysmal atrial fibrillation Postherpetic neuralgia Surgical History History of bursectomy History of endovascular stent graft for abdominal aortic aneurysm History of lobectomy of lung History of lumbosacral spine surgery History of permanent cardiac pacemaker placement History of tonsillectomy Status post reverse total arthroplasty of right shoulder Family History (Updated 11/03/19 @ 13:10 by Juliano Chauhan) Father Heart disease Mother Lung cancer Other Family history non-contributory Social History (Updated 11/03/19 @ 13:10 by Juliano Chauhan) Preferred Language: Ivorian Communication Ability: Effective Greenskeeper Required: No Beliefs That Will Affect Care: None marital status: / Current Living Situation: Rehab Current Living Situation Comment: [facility] current occupational status: retired current occupation: plant superintendant in [place] Other Information That Helps Us Care for You: No other: lives with Grand-daughter in [place]; 4 children Feels Safe at Home: Yes Smoking Status: Former smoker packs per day: 1.5 ; Years Smoked: 50 ; Number of Years Since Quit: 20 ; Hx Alcohol Use: No Hx Substance Use: No Review of Systems Review of Systems: All systems reviewed & are unremarkable except as noted in HPI & below Physical Exam Physical Exam: Constitutional: No acute distress HEENT: EOMI, sluggish response right pupil to light, arcus senilis bilaterally Respiratory system: Decreased air entry bilaterally, positive crackles right lower lobe, positive wheezing expiratory bilaterally, no rhonchi CVS: S1-S2 positive, no murmurs or gallops, distant heart sounds Abdomen: Soft, nontender, nondistended, positive bowel sounds x4 Extremities: +2 pulses bilaterally radialis/ dorsalis pedis, no cyanosis, no edema, cold lower extremities Neuro: Awake alert oriented x3 Psych: Normal mood and affect G/U: No Berry At the time of examination patient was saturating 97% on 4 L nasal cannula at rest. Went down to 3 L which is his baseline. Skin: no rashes, warm and dry Lymphatic: no cervical or axillary lymphadenopathy Results & Data Results & Data ([facility]) Vital Signs (Past 12 Hours) Vital Signs Temp Pulse Pulse Resp BP Pulse Ox 11/03/19 14:44 110 H 24 123/75 95 11/03/19 14:15 72 24 96/55 L 98 11/03/19 14:08 79 20 95 11/03/19 14:00 80 22 97/70 L 96 11/03/19 13:46 71 26 H 112/59 L 93 11/03/19 13:34 95 H 22 117/61 94 11/03/19 12:46 80 28 H 100/64 94 11/03/19 12:37 90 29 H 111/82 93 11/03/19 12:29 92 H 25 H 91/42 L 93 11/03/19 12:02 96 H 20 105/71 95 11/03/19 11:02 96 11/03/19 11:00 95 H 20 96 11/03/19 10:46 37.5 C 99 H 22 119/79 95 11/03/19 11:34 11/03/19 11:34 PG Care Time/CCT Total # of Minutes Spent Total Time Spent with Patient: Total time spent is greater than 50% in coordination of care (as documented) at patient's floor/unit and/or counseling patient: Coding Level of Care Code 12847 Initial Inpt Care Lvl 3 Diagnoses Acute and chronic respiratory failure with hypoxia J96.21 Multiple myeloma C90.00 Lung cancer C34.90 Pneumonia J18.9 Laterality: unspecified laterality Lung location: unspecified part of lung Pneumonia type: due to unspecified organism
--- NOTE | 2019-11-03 15:31 | Electrocardiogram Report ---
Test Reason : Blood Pressure : / mmHG Vent. Rate : 128 BPM Atrial Rate : 128 BPM P-R Int : 118 ms QRS Dur : 092 ms QT Int : 338 ms P-R-T Axes : 000 066 027 degrees QTc Int : 493 ms Poor data quality, interpretation may be adversely affected Not interpretable Confirmed by Juice Otero ([id number]) on 11/03/2019 3:30:56 PM Referred By: [facility] Confirmed By:Janes Otero
[2019-11-03] MEDS ORDERED: NITROGLYCERIN SL 0.4 MG/TAB TAB SL PRN (16:07)
[2019-11-03] MEDS: ALBUT/IPRATROP 3MG/0.5MG NEB 3 ML VIAL INH SCH ×3 (16:43→22:51)
[2019-11-03] MEDS: NYSTATIN SUSP 500,000 U/5 ML UDC PO SCH ×2 (18:07→19:56)
[2019-11-03] MEDS: DIGOXIN 0.125 MG TAB PO SCH (18:07)
[2019-11-03] MEDS: FORMOTEROL 20 MCG/2 ML VIAL INH SCH (19:04)
[2019-11-03] MEDS: CEFEPIME 2,000 MG in SYRINGE 7.5 ML IV SCH (19:49)
[2019-11-03] MEDS: ATORVASTATIN 40 MG TAB PO SCH (19:51)
[2019-11-03] MEDS: APIXABAN 5 MG TABLET PO SCH (19:51)
[2019-11-03] MEDS: methylPREDNISolone 40 MG in SYRINGE 0 ML IV SCH (19:51)
[2019-11-03] MEDS: FINASTERIDE 5 MG TAB PO SCH (19:52)
[2019-11-03] MEDS: GABAPENTIN 300 MG CAP PO SCH (19:53)
[2019-11-03] MEDS: METOPROLOL SUCC 50MG EXT REL TAB PO SCH (19:53)
[2019-11-03] MEDS: guaiFENesin 600 MG TABCR PO SCH (19:54)
[2019-11-03] MEDS: TAMSULOSIN HCL 0.4 MG CAP PO SCH (19:54)
[2019-11-03] MEDS: MIRTAZAPINE TAB 15 MG TAB PO SCH (19:55)
[2019-11-03] MEDS: NEOMYCIN/POLYMYXIN/GRAMICIDIN 10 ML BTL OPB SCH (22:14)
[2019-11-04] MEDS: methylPREDNISolone 40 MG in SYRINGE 0 ML IV SCH ×3 (00:48→21:00)
[2019-11-04] MEDS: CEFEPIME 2,000 MG in SYRINGE 7.5 ML IV SCH ×3 (02:48→21:03)
[2019-11-04] MEDS: ALBUT/IPRATROP 3MG/0.5MG NEB 3 ML VIAL INH SCH ×6 (03:00→23:11)
[2019-11-04 07:00] LABS: Hematocrit (blood only) 30.2 % (42-52); Hemoglobin 9.7 g/dL (14.0-18.0); Mean Corpuscular Hemoglobin 28.7 pg (25-34); Mean Corpuscular Hgb Conc 32.1 g/dL (32-36); Mean Corpuscular Volume 89.3 fL (80-100); RDW Coefficient of Variation 20.4 % (11.5-14.5); RDW Standard Deviation 66.1 fL (36.4-46.3); Red Blood Count 3.38 M/uL (4.7-6.1); White Blood Count 5.06 K/uL (4.8-10.8)
[2019-11-04] MEDS: FORMOTEROL 20 MCG/2 ML VIAL INH SCH ×2 (07:04→19:07)
[2019-11-04 07:30] LABS: BUN Creatinine Ratio 47.2 (10-20); Calcium 8.3 mg/dl (8.5-10.1); Creatinine Clr Calc Pharmacy 68.6 ml/min; Est GFR (African American) 85.6; Est GFR (Non-African American) 73.8; Potassium 3.9 mmol/L (3.5-5.1)
[2019-11-04 07:35] LABS: Mean Platelet Volume 9.5 fL (7.4-10.4); Platelet Count 91 K/uL (130-400)
[2019-11-04 07:39] LABS: Acanthocytes 1+; Anisocytosis Present; Immature Granulocytes # (auto) 0.02 K/uL (0.00-0.02); Immature Granulocytes % (auto) 0.4 %; Lymphocytes # (auto) 0.32 K/uL (1.2-3.4); Lymphocytes % (auto) 6.3 %; Neutrophils # (auto) 4.52 K/uL (1.4-6.5); Neutrophils % (auto) 89.3 %; Platelet Estimate Decreased (Normal)
[2019-11-04] MEDS: PANTOprazole 40 MG TAB PO SCH (07:52)
[2019-11-04] MEDS: LACTOBACILLUS ACIDOPHILUS (FLORANEX) TAB PO SCH (07:52)
[2019-11-04] MEDS: FUROSEMIDE 20 MG TAB PO SCH (07:52)
[2019-11-04] MEDS: FERROUS SULFATE 325 MG TAB PO SCH (07:52)
[2019-11-04] MEDS: MULTIVITAMIN TAB PO SCH (07:52)
[2019-11-04] MEDS: SULFAMETHOXAZOLE/TRIMETHOPRIM DS 800/160MG TAB PO SCH (07:52)
[2019-11-04] MEDS: NYSTATIN SUSP 500,000 U/5 ML UDC PO SCH ×4 (07:53→20:58)
[2019-11-04] MEDS: guaiFENesin 600 MG TABCR PO SCH ×2 (07:53→20:57)
[2019-11-04] MEDS: NEOMYCIN/POLYMYXIN/GRAMICIDIN 10 ML BTL OPB SCH ×2 (07:53→20:59)
[2019-11-04] MEDS: UMECLIDINIUM BROMIDE 62.5MCG/BLISTER 7 PUFFS/INHALER INH SCH (07:54)
[2019-11-04] MEDS: DIGOXIN 0.25 MG TAB PO SCH (07:54)
[2019-11-04] MEDS: GABAPENTIN 300 MG CAP PO SCH ×2 (07:55→20:54)
[2019-11-04] MEDS: APIXABAN 5 MG TABLET PO SCH ×2 (07:55→20:56)
--- NOTE | 2019-11-04 09:34 | Hospitalist Progress Note ---
Date of Service November 04, 2019 Assessment & Plan (1) Acute and chronic respiratory failure with hypoxia: 79 yo M with hx lung cancer s/p RUL resection + chemo, chronic hypoxic respiratory failure, interstitial lung disease, COPD on 3LNC continuous O2, systolic CHF EF 35%, pancytopenia, recently discharged from the hospital to [facility] for treatment of a pneumonia 10 days ago. 1) Aspiration Pneumonitis vs. COPD exacerbation - diffusely wheezy on exam, no focal difference in lung sounds indicative of effusion or consolidated pneumonia - didn't feel like he improved between discharge and re-entry to hospital at rehab in terms of shortness of breath/breathing issues - PA/Lat CXR today showing questionable effusion at right lower lobe above diaphragm, with right sided mucus plugging vs. multilobular pneumonia - given pancytopenia difficult to assess WBC elevation in regards to PNA development - given chronic hypoxic resp failure, lactate and LDH elevation more likely secondary to hypoxia than sepsis - Pulmonary support: Duonebs Q4 scheduled, flutter valve, incentive spirometer, mucinex - IV steroids tapered down to 40 mg methylpred IV BID from Q6H - Continuing antibiotics today, will reassess for improvement tomorrow and consider removal if appears to be more of a pneumonitis picture. If COPD exacerbation, may benefit from azithromycin for anti-inflammatory properties. - Bipap at night - Pulmonary input appreciated - currently at home requirement of 3LNC. Keeping close eye for increasing oxygen requirements and worsening condition. 2) Systolic CHF, 35% EF/Nonischemic Cardiomyopathy - continuing metoprolol succinate 50 mg PO daily - continuing Lasix 60 mg PO daily - continuing digoxin per home regimen - continuing Atorvastatin 80 mg PO HS 3) Chronic AFib with ICD placement - BB as above - Eliquis 5 mg BID 4) Chronic Pancytopenia - monitoring daily CBC - WBC 5, Hg 9.7, Plt 91 - ANC 4.52 5) Peripheral neuropathy - Gabapentin TID per home regimen 6) GERD - daily PPI 40 mg 7) BPH - flomax 04 mg PO QHS - proscar 5 mg PO HS 8) Candidiasis of mouth and throat - nystatin swish DVT ppx: Eliquis BID FEN/GI: regular diet; no pathology found on video swallow study last admission Code status: full code Dispo: Rehab vs. Home? pt was near end of rehab stay on readmission. PT/OT evals placed. (2) ICD (implantable cardioverter-defibrillator) in place: (3) Interstitial lung disease: (4) Chronic left ventricular systolic heart failure: (5) Chronic atrial fibrillation: (6) COPD (chronic obstructive pulmonary disease): Admission and Anticipated Discharge Date Admission Date: November 03, 2019 Supervising Physician Co-Signing Physician Notes Patient seen and examined independently of PGY-1 Dr. Soto. We discussed the case. Agree with history, exam findings, assessment and plan of care as outlined. In brief, Mr. Martin is an 79 year old male with history of emphysema, interstitial lung disease and s/p RUL lung resection for lung cancer (had chemo and radiation), uses 3L NC O2 chronically, afib, chronic LV systolic HF and multiple myeloma admitted with concerns for recurrent/worsening pneumonia and acute on chronic respiratory failure. Admitted from rehab facility. He feels a bit better today in terms of his breathing. Reports that over the last few months, his breathing has steadily diminished to the point where he has to take a break to catch his breath just walking across his home. Does note that he has pain in his mouth with white plaque that makes it painful to chew food. VS, labs and imaging reviewed. He is well appearing. Able to speak in complete sentences. Breathing easily, no accessory muscle use. Wet cough. Prolonged expiratory phase with scattered expiratory wheezes. No ronchi or rales. No lower extremity edema. 1. sepsis 2/2 pneumonia. lactate is downtrending. See below for individual issues. lactate level downtrending. 2. RLL pneumonia. radiographically improved compared to imaging from last admission (repeat CXR today with persistent small right infiltrate with small bilateral pleural effusions). Continue cefepime and levaquin. Patient reports a history of having a streaky red rash wit prior IV levaquin, but has done ok with oral levaquin. Can de-escalate antibiotics tomorrow if he continues to improve. 3. acute on chronic respiratory failure. Back to home 3L O2. 4. COPD exacerbation. De-escalate steroids to solumedrol 40mg BID. If he continues to do well, can further de-escalate steroids. Continue duonebs, guaifenesin, incentive spirometry and flutter valve. Discussed with patient that we can defer on using his home inhaled steroids for now since he his getting large doses of systemic steroids. Using the inhaled steroids on top of this will only worsen his thrush. Continue home formoterol and umeclidinium. Appreciate pulm recommendations. 5. Interstitial lung disease. See above. He will need to see pulm as an outpatient for follow up. 6. Afib. Rate controlled with metoprolol and dig. AC with Eliquis. 7. Chronic LV systolic HF, not decompensated. EF 35-40%. continue home beta edison and lasix. 8. Elevated troponin c/w demand ischemia. Troponins are down trending. 9. oral candidiasis. Continue with nystatin swish and swallow. Rinse mouth after using inhaled steroids. 10. Multiple myeloma. continue with bactrim for prophylaxis. 11. anemia and thrombocytopenia. likely secondary to multiple myeloma. Both are near his baseline. 12. restless leg. continue with home gabapentin. Dispo: pending clinical improvement. Would benefit from pulmonary rehab in the outpatient setting. Subjective Feeling mildly improved from yesterday. Still experiencing shortness of breath at rest on 3LNC. No pain with inspiration. + Cough with minimal mucus production. No chest pain,abdominal pain, nausea, vomiting. Review of Systems Constitutional: no fever, no chills, no body aches and no fatigue Respiratory: + cough and + dyspnea Cardiovascular: no chest pain, no dyspnea and no edema Gastrointestinal: no abdominal pain, no nausea, no vomiting, no constipation and no diarrhea/loose stools Physical Exam Constitutional: cooperative; no acute distress and not ill appearing Neck: normal visual inspection Respiratory: + labored breathing, + cough and + audible wheezes; + abnormal respiratory effort, no respiratory distress, no retractions, does not use accessory muscles and + not able to speak in complete sentence Auscultation: + rhonchi and + wheezes (inspiratory and expiratory throughout); no crackles and no rales Cardiovascular: Rate/Rhythm: + irregularly irregular Heart Sounds: normal S1 and normal S2; no gallop, no murmur and no cardiac rub Vessels: posterior tibial pulses present Extremities: no pedal edema and no edema Gastrointestinal (Abdomen): Inspection/Auscultation: abdomen normal to inspection and normal bowel sounds; abdomen not distended Percussion/Palpation: abdomen soft; abdomen nontender, no guarding, abdomen not rigid and no abdominal mass Results & Data Results & Data ([facility]) Vital Signs (Past 12 Hours) Vital Signs Temp Pulse Pulse Resp BP Pulse Ox 11/04/19 07:54 68 11/04/19 07:35 36.3 C L 74 18 105/56 L 96 11/04/19 07:09 78 18 97 11/04/19 04:53 36.4 C L 63 20 103/52 L 91 11/04/19 03:11 78 20 90 11/04/19 00:00 90 11/03/19 23:29 36.4 C L 73 18 98/45 L 92 11/03/19 22:54 76 18 92 Laboratory Results WBC 5.06 K/uL (4.8-10.8) 11/04/19 06:41 RBC 3.38 M/uL (4.7-6.1) L 11/04/19 06:41 Hgb 9.7 g/dL (14.0-18.0) L 11/04/19 06:41 Hct 30.2 % (42-52) L 11/04/19 06:41 MCV 89.3 fL (80-100) 11/04/19 06:41 MCH 28.7 pg (25-34) 11/04/19 06:41 MCHC 32.1 g/dL (32-36) 11/04/19 06:41 RDW Std Deviation 66.1 fL (36.4-46.3) H 11/04/19 06:41 RDW Coeff of Sonja 20.4 % (11.5-14.5) H 11/04/19 06:41 Plt Count 91 K/uL (130-400) L 11/04/19 06:41 MPV 9.5 fL (7.4-10.4) 11/04/19 06:41 Immature Gran % (Auto) 0.4 % 11/04/19 06:41 Neut % (Auto) 89.3 % 11/04/19 06:41 Lymph % (Auto) 6.3 % 11/04/19 06:41 [place] % (Auto) 2.0 % 11/04/19 06:41 Eos % (Auto) 0.0 % 11/04/19 06:41 Baso % (Auto) 2.0 % 11/04/19 06:41 Immature Gran # (Auto) 0.02 K/uL (0.00-0.02) 11/04/19 06:41 Neut # (Auto) 4.52 K/uL (1.4-6.5) 11/04/19 06:41 Lymph # (Auto) 0.32 K/uL (1.2-3.4) L 11/04/19 06:41 [place] # (Auto) 0.10 K/uL (0.11-0.59) L 11/04/19 06:41 Eos # (Auto) 0.00 K/uL (0-0.5) 11/04/19 06:41 Baso # (Auto) 0.10 K/uL (0-0.2) 11/04/19 06:41 Absolute Nucleated RBC 0.07 K/uL (0-0) H 11/03/19 11:34 Nucleated RBC % (auto) 1.1 % 11/03/19 11:34 Neutrophils % (Manual) 82.8 % 11/03/19 11:34 Lymphocytes % (Manual) 1.7 % 11/03/19 11:34 Reactive Lymphs % (Man) 12.9 % 11/03/19 11:34 Monocytes % (Manual) 1.7 % 11/03/19 11:34 Eosinophils % (Manual) 0.9 % 11/03/19 11:34 Neutrophils # (Manual) 5.57 K/uL (1.4-6.5) 11/03/19 11:34 Total Absolute Neuts 5.57 K/uL (1.4-6.5) 11/03/19 11:34 Lymphocytes # (Manual) 0.11 K/uL (1.2-3.4) L 11/03/19 11:34 Reactive Lymphs # 0.87 K/uL 11/03/19 11:34 Total Abs Lymphocytes 0.98 K/uL (1.2-3.4) L 11/03/19 11:34 Monocytes # (Manual) 0.11 K/uL (0.11-0.59) 11/03/19 11:34 Eosinophils # (Manual) 0.06 K/uL (0-0.5) 11/03/19 11:34 Platelet Estimate Decreased (Normal) L 11/04/19 06:41 Poikilocytosis Present 11/03/19 11:34 Anisocytosis Present 11/04/19 06:41 Acanthocytes (Spur) 1+ 11/04/19 06:41 ESR 18 mm/hr (0-14) H 11/03/19 11:34 PT 12.3 Seconds (9.0-12.0) H 11/03/19 12:34 INR 1.2 (0.9-1.1) H 11/03/19 12:34 APTT 24.6 Seconds (21.0-31.0) 11/03/19 12:34 PTT Ratio 0.9 11/03/19 12:34 Sodium 138 mmol/L (136-145) 11/04/19 06:41 Potassium 3.9 mmol/L (3.5-5.1) 11/04/19 06:41 Chloride 99 mmol/L (98-107) 11/04/19 06:41 Carbon Dioxide 34 mmol/L (21-32) H 11/04/19 06:41 Anion Gap 5.0 (3-11) 11/04/19 06:41 BUN 45 mg/dl (7-18) H 11/04/19 06:41 Creatinine 0.96 mg/dl (0.6-1.4) 11/04/19 06:41 Est Cr Clr Drug Dosing 68.6 ml/min 11/04/19 06:41 Est GFR ( Amer) 85.6 11/04/19 06:41 Est GFR (Non-Af Amer) 73.8 11/04/19 06:41 BUN/Creatinine Ratio 47.2 (10-20) H 11/04/19 06:41 Glucose 141 mg/dl (70-99) H 11/04/19 06:41 Lactate 2.1 mmol/L (0.4-2.0) H* 11/03/19 14:00 Calcium 8.3 mg/dl (8.5-10.1) L 11/04/19 06:41 Magnesium 2.2 mg/dl (1.8-2.4) 11/03/19 11:34 Total Bilirubin 0.6 mg/dl (0.2-1) 11/03/19 11:34 AST 24 U/L (15-37) 11/03/19 11:34 ALT 34 U/L (12-78) 11/03/19 11:34 Alkaline Phosphatase 160 U/L (45-117) H 11/03/19 11:34 Lactate Dehydrogenase 335 U/L (87-241) H 11/03/19 11:34 Total Creatine Kinase 46 U/L (39-308) 11/03/19 12:34 CK-MB (CK-2) 3.6 ng/ml (0.5-3.6) 11/03/19 12:34 CK/CKMB % Calc 7.8 (0-3.0) H 11/03/19 12:34 Troponin I 0.135 ng/ml (0-0.045) H* 11/03/19 23:39 C-Reactive Protein 1.05 mg/dl (0-0.29) H 11/03/19 11:34 NT-Pro-B Natriuret Pep 2661 pg/ml (0-1800) H 11/03/19 11:34 Total Protein 6.6 gm/dl (6.4-8.2) 11/03/19 11:34 Albumin 2.8 gm/dl (3.4-5.0) L 11/03/19 11:34 Globulin 3.8 gm/dl (2.5-4.0) 11/03/19 11:34 Albumin/Globulin Ratio 0.7 (0.9-2) L 11/03/19 11:34 Procalcitonin 0.16 ng/ml (0-0.5) 11/03/19 11:34 Urine Color Yellow 11/03/19 12:10 Urine Appearance Clear (Clear) 11/03/19 12:10 Urine pH 5.5 (4.5-7.5) 11/03/19 12:10 Ur Specific [place] 1.017 (1.000-1.030) 11/03/19 12:10 Urine Protein Negative (Negative) 11/03/19 12:10 Urine Glucose (UA) Negative (Negative) 11/03/19 12:10 Urine Ketones Negative (Negative) 11/03/19 12:10 Urine Blood Trace (Negative) H 11/03/19 12:10 Urine Nitrite Negative (Negative) 11/03/19 12:10 Urine Bilirubin Negative (Negative) 11/03/19 12:10 Urine Urobilinogen Negative (Negative) 11/03/19 12:10 Ur Leukocyte Esterase 1+ (Negative) H 11/03/19 12:10 Urine WBC (Auto) 1-5 /hpf (0-5) 11/03/19 12:10 Urine RBC (Auto) 0-4 /hpf (0-4) 11/03/19 12:10 U Hyaline Cast (Auto) 1-5 /lpf (0-5) 11/03/19 12:10 U Epithel Cells (Auto) 5-10 /lpf (0-5) H 11/03/19 12:10 Urine Bacteria (Auto) Negative (Negative) 11/03/19 12:10 Nasal Screen MRSA (PCR) Negative (Negative) 11/04/19 00:12 Digoxin 1.0 ng/ml (0.8-2.0) 11/03/19 11:34 COVID-19 PCR NEGATIVE (Negative) 11/03/19 Unknown Influenza Type A (PCR) Neg for Influ A (Neg) 11/03/19 Unknown Influenza Type B (PCR) Neg for Influ B (Neg) 11/03/19 Unknown Resident Activity Tracking Resident Involvement: Resident Care Provided Care Provided: Adult Hospital Medicine (1) COPD (chronic obstructive pulmonary disease) COPD type: COPD with acute exacerbation Qualified Code(s): J44.1 - Chronic obstructive pulmonary disease with (acute) exacerbation
--- NOTE | 2019-11-04 09:55 | Pulmonology Progress Note ---
Date of Service November 04, 2019 Assessment & Plan (1) Acute and chronic respiratory failure with hypoxia: 79-year-old male with past medical history of lung cancer 2006 status post right upper lobectomy, COPD on 3 L nasal cannula at baseline, MDS used to be on leflunomide who was recently admitted to the hospital with multilobar pneumonia was discharged on long taper of steroids along with Bactrim prophylaxis was discharged to a rehab is readmitted because of shortness of breath. Chest x-ray 11/03/2019:Portable film, there are infiltrates appreciated on the right side but there is significant improvement compared to the chest x-ray and CAT scan done on 10/20/2019 Chest x-ray 11/04/2019: Shows significant improvement in the right-sided opacity. --Acute on chronic hypoxic respiratory failure Likely secondary to COPD exacerbation I would continue with antibiotics for the time being and follow-up septic work- up ESR 18, CRP 1.05, procalcitonin 0.16, Covid-19: Negative, influenza negative BNP 2661, this is also less than when he was admitted approximately 2 weeks ago. 2D echo 10/20/2019: EF: 35-40%, RVSP 30-40 mmHg Continue with diuresis as tolerated Continue with O2 supplementation to keep oxygen between 88-92% Continue with inhaled bronchodilators, steroids. BiPAP nightly and PRN shortness of breath --Severe COPD with emphysema Plan as above -- History of lung cancer Status post right upper lobectomy, chemo and radiation --CHF EF 35-40% Continue with diuresis --Plan: Chest x-ray from today shows improvement in the infiltrate on the right side. Clinically patient seems to be improving. I would continue with guaifenesin and flutter valve to get the mucus out. There is a possibility that leflunomide that the patient is taking is playing a role in the picture that he showed on the CT chest done on previous admission. I think we can start tapering prednisone to 40 mg p.o. daily for 3 days starting tomorrow and then 20 mg till he sees the supply clerk as an outpatient. Continue with Bactrim prophylaxis for PJP. Can think about de-escalating antibiotics starting tomorrow as well. (2) Multiple myeloma: Multiple myeloma remission status: unspecified Qualified Code(s): C90.00 - Multiple myeloma not having achieved remission (3) Lung cancer: Laterality: right Lung location: upper lobe of lung Qualified Code(s): C34.11 - Malignant neoplasm of upper lobe, right bronchus or lung (4) Pneumonia: Laterality: unspecified laterality Lung location: unspecified part of lung Pneumonia type: due to unspecified organism Qualified Code(s): J18.9 - Pneumonia, unspecified organism Admission and Anticipated Discharge Date Admission Date: November 03, 2019 Subjective Patient seen and examined at bedside. No acute distress, no adverse events overnight. Patient states that shortness of breath is improved compared to when he was presented to the hospital. He does cough and bring up some phlegm. Denies any hemoptysis. Denies any chest pain. No headache, no blurry vision. Good appetite Review of Systems Review of Systems: All systems reviewed & are unremarkable except as noted in HPI & below Physical Exam Physical Exam: Constitutional: No acute distress HEENT: EOMI, sluggish response right pupil to light, arcus senilis bilaterally Respiratory system: Decreased air entry bilaterally, positive crackles right lower lobe, no wheezing today, no rhonchi CVS: S1-S2 positive, no murmurs or gallops, distant heart sounds Abdomen: Soft, nontender, nondistended, positive bowel sounds x4 Extremities: +2 pulses bilaterally radialis/ dorsalis pedis, no cyanosis, no edema, cold lower extremities Neuro: Awake alert oriented x3 Psych: Normal mood and affect G/U: No Berry At the time of examination patient was saturating 91% on 3 L nasal cannula at rest. Skin: no rashes, warm and dry Lymphatic: no cervical or axillary lymphadenopathy Results & Data Results & Data ([facility]) Vital Signs (Past 12 Hours) Vital Signs Temp Pulse Pulse Resp BP Pulse Ox 11/04/19 07:54 68 11/04/19 07:35 36.3 C L 74 18 105/56 L 96 11/04/19 07:09 78 18 97 11/04/19 04:53 36.4 C L 63 20 103/52 L 91 11/04/19 03:11 78 20 90 11/04/19 00:00 90 11/03/19 23:29 36.4 C L 73 18 98/45 L 92 11/03/19 22:54 76 18 92 11/04/19 06:41 11/04/19 06:41 PG Care Time/CCT Total # of Minutes Spent Total Time Spent with Patient: Total time spent is greater than 50% in coordination of care (as documented) at patient's floor/unit and/or counseling patient: Coding Level of Care Code 10030 Subseq Hosp Care Lvl 3 Diagnoses Acute and chronic respiratory failure with hypoxia J96.21 Multiple myeloma C90.00 Multiple myeloma remission status: unspecified Lung cancer C34.11 Laterality: right Lung location: upper lobe of lung Pneumonia J18.9 Laterality: unspecified laterality Lung location: unspecified part of lung Pneumonia type: due to unspecified organism
[2019-11-04] MEDS: LEVOFLOXACIN/D5W 750 MG/150 ML BAG IV SCH (11:07)
--- NOTE | 2019-11-04 11:26 | XRay Report ---
XR chest 2V PA/lateral CLINICAL HISTORY: Pneumonia. Weakness. COMPARISON STUDY: Chest CT October 20, 2019. Chest radiograph November 03, 2019 FINDINGS: Left subclavian pacer and right shoulder arthroplasty are noted. Postoperative findings wit hin the right lung apex are noted with right apical scarring. Emphysema is present. There is no evide nce for pulmonary edema. There is no pneumothorax. Trace bilateral pleural effusions are present. Rig ht lung airspace opacities have slightly improved. In part, this could be technical. IMPRESSION: 1. Persistent, but slightly improved, right lung airspace opacities which favor an infectious process . 2. Trace bilateral pleural effusions. 3. Emphysema. ACT 112: Negative or not required by law. Electronically signed by: Morgan Dockery M.D. 11/04/2019 11:24 AM
[2019-11-04] MEDS ORDERED: GABAPENTIN 600 MG TAB PO SCH (11:30)
--- NOTE | 2019-11-04 17:06 | Electrocardiogram Report ---
Test Reason : Blood Pressure : / mmHG Vent. Rate : 075 BPM Atrial Rate : 277 BPM P-R Int : 000 ms QRS Dur : 102 ms QT Int : 342 ms P-R-T Axes : 000 065 259 degrees QTc Int : 381 ms Atrial fibrillation with frequent ventricular-paced complexes Abnormal ECG Confirmed by Juice Otero ([id number]) on 11/04/2019 5:05:44 PM Referred By: [facility] Confirmed By:Janes Otero
--- NOTE | 2019-11-04 17:07 | Electrocardiogram Report ---
Test Reason : Blood Pressure : / mmHG Vent. Rate : 065 BPM Atrial Rate : 000 BPM P-R Int : 000 ms QRS Dur : 102 ms QT Int : 394 ms P-R-T Axes : 000 076 240 degrees QTc Int : 409 ms Atrial fibrillation with frequent ventricular-paced complexes Abnormal ECG When compared with ECG of 03-NOV-2019 11:33, (unconfirmed) Vent. rate has decreased BY 10 BPM Confirmed by Juice Otero ([id number]) on 11/04/2019 5:07:24 PM Referred By: [facility] Confirmed By:Janes Otero
[2019-11-04] MEDS: METOPROLOL SUCC 50MG EXT REL TAB PO SCH (20:53)
[2019-11-04] MEDS: TAMSULOSIN HCL 0.4 MG CAP PO SCH (20:56)
[2019-11-04] MEDS: ATORVASTATIN 40 MG TAB PO SCH (20:58)
[2019-11-04] MEDS: FINASTERIDE 5 MG TAB PO SCH (21:00)
[2019-11-04] MEDS: MIRTAZAPINE TAB 15 MG TAB PO SCH (21:00)
[2019-11-05] MEDS: NYSTATIN SUSP 500,000 U/5 ML UDC PO SCH ×5 (03:13→19:47)
[2019-11-05] MEDS: ALBUT/IPRATROP 3MG/0.5MG NEB 3 ML VIAL INH SCH ×4 (03:26→15:05)
[2019-11-05] MEDS: CEFEPIME 2,000 MG in SYRINGE 7.5 ML IV SCH ×3 (04:30→19:47)
--- NOTE | 2019-11-05 07:02 | XRay Report ---
XR chest 1V portable HISTORY: 79 years-old Male f/u follow-up study in a patient with weakness and right lung base opacit ies COMPARISON: Chest radiograph 11/04/2019, chest CT 10/20/2019. TECHNIQUE: Portable AP view of the chest FINDINGS: Cardiac silhouette is mildly enlarged. Left subclavian pacer/AICD. Chronic pleural thickening of the right lung apex with adjacent surgical clips. Emphysema. No overt pulmonary edema. Unchanged ill-defi ora right midlung and right basilar opacities persist. Chronic right lung volume loss. Trace pleural effusions. Degenerative changes of the shoulders and spine. Unchanged 1.8 cm pulmonary nodule of the left upper lobe. IMPRESSION: 1. Unchanged ill-defined right midlung and right lung base opacities suspicious for pneumonitis. 2. Trace pleural effusions. 3. Emphysema. ACT 112: Negative or not required by law. The above report was generated using voice recognition software. It may contain grammatical, syntax o r spelling errors. Electronically signed by: Brendon Verduzco M.D. 11/05/2019 7:01 AM
[2019-11-05] MEDS: FORMOTEROL 20 MCG/2 ML VIAL INH SCH ×2 (07:13→19:06)
[2019-11-05] MEDS: PANTOprazole 40 MG TAB PO SCH (07:44)
[2019-11-05] MEDS: LACTOBACILLUS ACIDOPHILUS (FLORANEX) TAB PO SCH (07:44)
[2019-11-05] MEDS: FUROSEMIDE 20 MG TAB PO SCH (07:44)
[2019-11-05] MEDS: methylPREDNISolone 40 MG in SYRINGE 0 ML IV SCH ×2 (07:44→21:31)
[2019-11-05] MEDS: SULFAMETHOXAZOLE/TRIMETHOPRIM DS 800/160MG TAB PO SCH (07:45)
[2019-11-05] MEDS: NEOMYCIN/POLYMYXIN/GRAMICIDIN 10 ML BTL OPB SCH ×2 (07:45→21:31)
[2019-11-05] MEDS: guaiFENesin 600 MG TABCR PO SCH ×2 (07:45→21:29)
[2019-11-05] MEDS: DIGOXIN 0.125 MG TAB PO SCH (07:45)
[2019-11-05] MEDS: APIXABAN 5 MG TABLET PO SCH ×2 (07:45→21:30)
[2019-11-05] MEDS: MULTIVITAMIN TAB PO SCH (07:45)
[2019-11-05] MEDS: FERROUS SULFATE 325 MG TAB PO SCH (07:46)
[2019-11-05] MEDS: UMECLIDINIUM BROMIDE 62.5MCG/BLISTER 7 PUFFS/INHALER INH SCH (07:46)
[2019-11-05] MEDS: GABAPENTIN 300 MG CAP PO SCH ×2 (07:46→19:47)
[2019-11-05 08:27] LABS: Hematocrit (blood only) 31.4 % (42-52); Mean Corpuscular Hemoglobin 29.1 pg (25-34); Mean Corpuscular Hgb Conc 31.8 g/dL (32-36); Mean Corpuscular Volume 91.3 fL (80-100); Mean Platelet Volume 10.4 fL (7.4-10.4); Nucleated RBC # (auto) 0.03 K/uL (0-0); Nucleated RBC % (auto) 0.5 %; Platelet Count 123 K/uL (130-400); RDW Coefficient of Variation 20.5 % (11.5-14.5); RDW Standard Deviation 68.6 fL (36.4-46.3); Red Blood Count 3.44 M/uL (4.7-6.1); White Blood Count 6.28 K/uL (4.8-10.8)
[2019-11-05 08:56] LABS: Calcium 8.9 mg/dl (8.5-10.1); Creatinine Clr Calc Pharmacy 61.6 ml/min; Est GFR (African American) 75.1; Est GFR (Non-African American) 64.8
--- NOTE | 2019-11-05 09:52 | Hospitalist Progress Note ---
Date of Service November 05, 2019 Assessment & Plan (1) Acute and chronic respiratory failure with hypoxia: 79 yo M with hx lung cancer s/p RUL resection + chemo, chronic hypoxic respiratory failure, interstitial lung disease, COPD on 3LNC continuous O2, systolic CHF EF 35%, pancytopenia, recently discharged from the hospital to [facility] for treatment of a pneumonia 10 days ago. 1) Aspiration Pneumonitis vs. COPD exacerbation - diffusely wheezy on exam, no focal difference in lung sounds indicative of effusion or consolidated pneumonia - didn't feel like he improved between discharge and re-entry to hospital at rehab in terms of shortness of breath/breathing issues - PA/Lat CXR today showing questionable effusion at right lower lobe above diaphragm, with right sided mucus plugging vs. multilobular pneumonia - given pancytopenia difficult to assess WBC elevation in regards to PNA development - given chronic hypoxic resp failure, lactate and LDH elevation more likely secondary to hypoxia than sepsis - Pulmonary support: Duonebs Q4 scheduled, flutter valve, incentive spirometer, mucinex - IV steroids tapered down to 40 mg methylpred IV BID from Q6H - Continuing antibiotics today, will reassess for improvement tomorrow and consider removal if appears to be more of a pneumonitis picture. If COPD exacerbation, may benefit from azithromycin for anti-inflammatory properties. - Bipap at night - Pulmonary input appreciated - currently at home requirement of 3LNC. Keeping close eye for increasing oxygen requirements and worsening condition. 2) Systolic CHF, 35% EF/Nonischemic Cardiomyopathy - continuing metoprolol succinate 50 mg PO daily - continuing Lasix 60 mg PO daily - continuing digoxin per home regimen - continuing Atorvastatin 80 mg PO HS 3) Chronic AFib with ICD placement - BB as above - Eliquis 5 mg BID 4) Chronic Pancytopenia - monitoring daily CBC - WBC 5, Hg 9.7, Plt 91 - ANC 4.52 5) Peripheral neuropathy - Gabapentin TID per home regimen 6) GERD - daily PPI 40 mg 7) BPH - flomax 04 mg PO QHS - proscar 5 mg PO HS 8) Candidiasis of mouth and throat - nystatin swish DVT ppx: Eliquis BID FEN/GI: regular diet; no pathology found on video swallow study last admission Code status: full code Dispo: Rehab vs. Home? pt was near end of rehab stay on readmission. PT/OT evals placed. (2) ICD (implantable cardioverter-defibrillator) in place: (3) Interstitial lung disease: (4) Chronic left ventricular systolic heart failure: (5) Chronic atrial fibrillation: (6) COPD (chronic obstructive pulmonary disease): Admission and Anticipated Discharge Date Admission Date: November 03, 2019 Results & Data Results & Data ([facility]) Vital Signs (Past 12 Hours) Vital Signs Temp Pulse Pulse Resp BP Pulse Ox 11/05/19 07:50 36.4 C L 61 20 109/58 L 99 11/05/19 07:45 82 11/05/19 07:17 82 18 99 11/05/19 03:26 69 18 95 11/05/19 03:22 36.5 C 72 20 111/65 95 11/05/19 00:49 36.5 C 82 22 114/58 L 87 L 11/04/19 23:12 65 18 96 (1) COPD (chronic obstructive pulmonary disease) COPD type: COPD with acute exacerbation Qualified Code(s): J44.1 - Chronic obstructive pulmonary disease with (acute) exacerbation
[2019-11-05 09:53] LABS: Magnesium 2.5 mg/dl (1.8-2.4)
--- NOTE | 2019-11-05 10:06 | Pulmonology Progress Note ---
Date of Service November 05, 2019 Assessment & Plan (1) Acute and chronic respiratory failure with hypoxia: 79-year-old male with past medical history of lung cancer 2006 status post right upper lobectomy, COPD on 3 L nasal cannula at baseline, MDS used to be on leflunomide who was recently admitted to the hospital with multilobar pneumonia was discharged on long taper of steroids along with Bactrim prophylaxis was discharged to a rehab is readmitted because of shortness of breath. Chest x-ray 11/03/2019:Portable film, there are infiltrates appreciated on the right side but there is significant improvement compared to the chest x-ray and CAT scan done on 10/20/2019 Chest x-ray 11/04/2019: Shows significant improvement in the right-sided opacity. --Acute on chronic hypoxic respiratory failure Likely secondary to COPD exacerbation I would continue with antibiotics for the time being and follow-up septic work- up ESR 18, CRP 1.05, procalcitonin 0.16, Covid-19: Negative, influenza negative BNP 2661 at the time of admission, this is also less than when he was admitted approximately 2 weeks ago. 2D echo 10/20/2019: EF: 35-40%, RVSP 30-40 mmHg Continue with diuresis as tolerated Continue with O2 supplementation to keep oxygen between 88-92% Continue with inhaled bronchodilators, steroids. BiPAP nightly and PRN shortness of breath --Severe COPD with emphysema Plan as above -- History of lung cancer Status post right upper lobectomy, chemo and radiation --CHF EF 35-40% Continue with diuresis --Plan: Patient continuing to improve. Continue with guaifenesin and flutter valve. Continue with prednisone 40 mg for 3 days then titrate down to 20 mg on a daily basis till he sees his outpatient gas line servicer. Discharge the patient on Bactrim for PJP prophylaxis. There is a possibility that leflunomide that the patient is taking is playing a role in the picture that he showed on the CT chest done on previous admission. Repeat CT chest in 3 to 4 weeks. Recommend discontinuing cefepime. Continue with levofloxacin for total of 7 days. (2) Multiple myeloma: Multiple myeloma remission status: unspecified Qualified Code(s): C90.00 - Multiple myeloma not having achieved remission (3) Lung cancer: Laterality: right Lung location: upper lobe of lung Qualified Code(s): C34.11 - Malignant neoplasm of upper lobe, right bronchus or lung (4) Pneumonia: Laterality: unspecified laterality Lung location: unspecified part of lung Pneumonia type: due to unspecified organism Qualified Code(s): J18.9 - Pneumonia, unspecified organism Admission and Anticipated Discharge Date Admission Date: November 03, 2019 Subjective Patient seen and examined at bedside. No acute distress, no adverse events overnight. Patient states his breathing has improved significantly. Coughing is decreased in intensity. He is bringing up some clear phlegm. Good appetite. Denies any nausea or vomiting. Review of Systems Review of Systems: All systems reviewed & are unremarkable except as noted in HPI & below Physical Exam Physical Exam: Constitutional: No acute distress HEENT: EOMI, sluggish response right pupil to light, arcus senilis bilaterally Respiratory system: Decreased air entry bilaterally, minimal crackles right lower lobe, no wheeze, minimal rhonchi CVS: S1-S2 positive, no murmurs or gallops, distant heart sounds Abdomen: Soft, nontender, nondistended, positive bowel sounds x4 Extremities: +2 pulses bilaterally radialis/ dorsalis pedis, no cyanosis, no edema, cold lower extremities Neuro: Awake alert oriented x3 Psych: Normal mood and affect G/U: No Berry At the time of examination patient was saturating 93% on 3 L nasal cannula at rest with heart rate of 72. Skin: no rashes, warm and dry Lymphatic: no cervical or axillary lymphadenopathy Results & Data Results & Data ([facility]) Vital Signs (Past 12 Hours) Vital Signs Temp Pulse Pulse Resp BP Pulse Ox 11/05/19 07:50 36.4 C L 61 20 109/58 L 99 11/05/19 07:45 82 11/05/19 07:17 82 18 99 11/05/19 03:26 69 18 95 11/05/19 03:22 36.5 C 72 20 111/65 95 11/05/19 00:49 36.5 C 82 22 114/58 L 87 L 11/04/19 23:12 65 18 96 11/05/19 08:17 11/05/19 09:08 PG Care Time/CCT Total # of Minutes Spent Total Time Spent with Patient: Total time spent is greater than 50% in coordination of care (as documented) at patient's floor/unit and/or counseling patient: Coding Level of Care Code 68994 Subseq Hosp Care Lvl 3 Diagnoses Acute and chronic respiratory failure with hypoxia J96.21 Multiple myeloma C90.00 Multiple myeloma remission status: unspecified Lung cancer C34.11 Laterality: right Lung location: upper lobe of lung Pneumonia J18.9 Laterality: unspecified laterality Lung location: unspecified part of lung Pneumonia type: due to unspecified organism
[2019-11-05] MEDS: LEVOFLOXACIN/D5W 750 MG/150 ML BAG IV SCH (12:15)
[2019-11-05] MEDS: GABAPENTIN 600 MG TAB PO SCH (13:45)
--- NOTE | 2019-11-05 17:58 | Hospitalist Progress Note ---
Date of Service November 05, 2019 Assessment & Plan (1) Acute and chronic respiratory failure with hypoxia: 79 yo M with hx lung cancer s/p RUL resection + chemo, chronic hypoxic respiratory failure, interstitial lung disease, COPD on 3LNC continuous O2, systolic CHF EF 35%, pancytopenia, recently discharged from the hospital to [facility] for treatment of a pneumonia 10 days ago. 1) COPD exacerbation - diffusely wheezy on exam; mildly improved from yesterday. - mild improvement on CXR in conjunction with improved PE - Pulmonary support: Duonebs Q4 PRN, flutter valve, incentive spirometer, mucinex - IV steroids tapered down to 40 mg methylpred IV BID --> switching to 40 mg prednisone PO tomorrow for 3 days per pulm recommendation - discontinuing antibiotics tomorrow - Bipap at night - Pulmonary input appreciated - currently at home requirement of 3LNC. Keeping close eye for increasing oxygen requirements and worsening condition. 2) Systolic CHF, 35% EF/Nonischemic Cardiomyopathy - continuing metoprolol succinate 50 mg PO daily - continuing Lasix 60 mg PO daily - continuing digoxin per home regimen - continuing Atorvastatin 80 mg PO HS 3) Chronic AFib with ICD placement - BB as above - Eliquis 5 mg BID 4) Chronic Pancytopenia - monitoring daily CBC - WBC 5, Hg 9.7, Plt 91 - ANC 4.52 5) Peripheral neuropathy - Gabapentin TID per home regimen 6) GERD - daily PPI 40 mg 7) BPH - flomax 04 mg PO QHS - proscar 5 mg PO HS 8) Candidiasis of mouth and throat - nystatin swish DVT ppx: Eliquis BID FEN/GI: regular diet; no pathology found on video swallow study last admission Code status: full code Dispo: return to [facility] tomorrow, will need PT/OT there (2) ICD (implantable cardioverter-defibrillator) in place: (3) Interstitial lung disease: (4) Chronic left ventricular systolic heart failure: (5) Chronic atrial fibrillation: (6) COPD (chronic obstructive pulmonary disease): Admission and Anticipated Discharge Date Admission Date: November 03, 2019 Supervising Physician Co-Signing Physician Notes Attending attestation Pt seen and examined in concert with Dr. Soto. In agreement with the documented findings as noted in the resident documentation with any exceptions or additions as noted here. On neb therapy during evaluation with partial relief of SOB. Persistent nonproductive cough. On examination, diffuse rhonchorous breath sounds with RLL rales/decrease c/w PNA. S1/S2 nl RRR COPD exacerbation in the setting of recent PNA - pulmonology consultation appreciated - in AM, transition to PO prednisone and abx CHF - continue furosemide with digoxin and metoprolol. On atorvastatin. Else see resident documentation as noted. Subjective Continuing to improve this AM. No acute complaints. Review of Systems Constitutional: no fever, no chills, no body aches and no fatigue Respiratory: + cough and + dyspnea Cardiovascular: no chest pain, no dyspnea and no edema Gastrointestinal: no abdominal pain, no nausea, no vomiting, no constipation and no diarrhea/loose stools Physical Exam Constitutional: cooperative; no acute distress and not ill appearing Neck: normal visual inspection Respiratory: normal respiratory effort and + cough; no respiratory distress, no labored breathing, no retractions, + not able to speak in complete sentence and no audible wheezes Auscultation: lungs clear to auscultation bilaterally, + rhonchi and + wheezes; no crackles and no rales aeration in left > right lung, no focal crackles or rhonchi Cardiovascular: Rate/Rhythm: regular rate and regular rhythm Heart Sounds: normal S1 and normal S2; no gallop, no murmur and no cardiac rub Vessels: posterior tibial pulses present Extremities: no pedal edema and no edema Gastrointestinal (Abdomen): Inspection/Auscultation: abdomen normal to inspection and normal bowel sounds; abdomen not distended Percussion/Palpation: abdomen soft; abdomen nontender, no guarding, abdomen not rigid and no abdominal mass Results & Data Results & Data ([facility]) Vital Signs (Past 12 Hours) Vital Signs Temp Pulse Pulse Resp BP Pulse Ox Pulse Ox 11/05/19 16:27 36.7 C 85 23 134/64 90 11/05/19 15:06 78 20 98 11/05/19 14:29 96 11/05/19 11:51 36.4 C L 73 19 110/66 96 11/05/19 11:16 61 18 96 11/05/19 07:50 36.4 C L 61 20 109/58 L 99 11/05/19 07:45 82 11/05/19 07:17 82 18 99 Pulse Ox Pulse Ox 11/05/19 16:27 11/05/19 15:06 11/05/19 14:29 95 88 L 11/05/19 11:51 11/05/19 11:16 11/05/19 07:50 11/05/19 07:45 11/05/19 07:17 Laboratory Results WBC 6.28 K/uL (4.8-10.8) 11/05/19 08:17 RBC 3.44 M/uL (4.7-6.1) L 11/05/19 08:17 Hgb 10.0 g/dL (14.0-18.0) L 11/05/19 08:17 Hct 31.4 % (42-52) L 11/05/19 08:17 MCV 91.3 fL (80-100) 11/05/19 08:17 MCH 29.1 pg (25-34) 11/05/19 08:17 MCHC 31.8 g/dL (32-36) L 11/05/19 08:17 RDW Std Deviation 68.6 fL (36.4-46.3) H 11/05/19 08:17 RDW Coeff of Sonja 20.5 % (11.5-14.5) H 11/05/19 08:17 Plt Count 123 K/uL (130-400) L 11/05/19 08:17 MPV 10.4 fL (7.4-10.4) 11/05/19 08:17 Immature Gran % (Auto) 0.4 % 11/04/19 06:41 Neut % (Auto) 89.3 % 11/04/19 06:41 Lymph % (Auto) 6.3 % 11/04/19 06:41 [place] % (Auto) 2.0 % 11/04/19 06:41 Eos % (Auto) 0.0 % 11/04/19 06:41 Baso % (Auto) 2.0 % 11/04/19 06:41 Immature Gran # (Auto) 0.02 K/uL (0.00-0.02) 11/04/19 06:41 Neut # (Auto) 4.52 K/uL (1.4-6.5) 11/04/19 06:41 Lymph # (Auto) 0.32 K/uL (1.2-3.4) L 11/04/19 06:41 [place] # (Auto) 0.10 K/uL (0.11-0.59) L 11/04/19 06:41 Eos # (Auto) 0.00 K/uL (0-0.5) 11/04/19 06:41 Baso # (Auto) 0.10 K/uL (0-0.2) 11/04/19 06:41 Absolute Nucleated RBC 0.03 K/uL (0-0) H 11/05/19 08:17 Nucleated RBC % (auto) 0.5 % 11/05/19 08:17 Neutrophils % (Manual) 82.8 % 11/03/19 11:34 Lymphocytes % (Manual) 1.7 % 11/03/19 11:34 Reactive Lymphs % (Man) 12.9 % 11/03/19 11:34 Monocytes % (Manual) 1.7 % 11/03/19 11:34 Eosinophils % (Manual) 0.9 % 11/03/19 11:34 Neutrophils # (Manual) 5.57 K/uL (1.4-6.5) 11/03/19 11:34 Total Absolute Neuts 5.57 K/uL (1.4-6.5) 11/03/19 11:34 Lymphocytes # (Manual) 0.11 K/uL (1.2-3.4) L 11/03/19 11:34 Reactive Lymphs # 0.87 K/uL 11/03/19 11:34 Total Abs Lymphocytes 0.98 K/uL (1.2-3.4) L 11/03/19 11:34 Monocytes # (Manual) 0.11 K/uL (0.11-0.59) 11/03/19 11:34 Eosinophils # (Manual) 0.06 K/uL (0-0.5) 11/03/19 11:34 Platelet Estimate Decreased (Normal) L 11/04/19 06:41 Poikilocytosis Present 11/03/19 11:34 Anisocytosis Present 11/04/19 06:41 Acanthocytes (Spur) 1+ 11/04/19 06:41 ESR 18 mm/hr (0-14) H 11/03/19 11:34 PT 12.3 Seconds (9.0-12.0) H 11/03/19 12:34 INR 1.2 (0.9-1.1) H 11/03/19 12:34 APTT 24.6 Seconds (21.0-31.0) 11/03/19 12:34 PTT Ratio 0.9 11/03/19 12:34 Sodium 138 mmol/L (136-145) 11/05/19 08:17 Potassium 4.0 mmol/L (3.5-5.1) 11/05/19 09:08 Chloride 101 mmol/L (98-107) 11/05/19 08:17 Carbon Dioxide 31 mmol/L (21-32) 11/05/19 08:17 Anion Gap 6.0 (3-11) 11/05/19 08:17 BUN 49 mg/dl (7-18) H 11/05/19 08:17 Creatinine 1.07 mg/dl (0.6-1.4) 11/05/19 08:17 Est Cr Clr Drug Dosing 61.6 ml/min 11/05/19 08:17 Est GFR ( Amer) 75.1 11/05/19 08:17 Est GFR (Non-Af Amer) 64.8 11/05/19 08:17 BUN/Creatinine Ratio 46.0 (10-20) H 11/05/19 08:17 Glucose 107 mg/dl (70-99) H 11/05/19 08:17 Lactate 2.1 mmol/L (0.4-2.0) H* 11/03/19 14:00 Calcium 8.9 mg/dl (8.5-10.1) 11/05/19 08:17 Magnesium 2.5 mg/dl (1.8-2.4) H 11/05/19 09:08 Total Bilirubin 0.6 mg/dl (0.2-1) 11/03/19 11:34 AST 24 U/L (15-37) 11/03/19 11:34 ALT 34 U/L (12-78) 11/03/19 11:34 Alkaline Phosphatase 160 U/L (45-117) H 11/03/19 11:34 Lactate Dehydrogenase 335 U/L (87-241) H 11/03/19 11:34 Total Creatine Kinase 46 U/L (39-308) 11/03/19 12:34 CK-MB (CK-2) 3.6 ng/ml (0.5-3.6) 11/03/19 12:34 CK/CKMB % Calc 7.8 (0-3.0) H 11/03/19 12:34 Troponin I 0.135 ng/ml (0-0.045) H* 11/03/19 23:39 C-Reactive Protein 1.05 mg/dl (0-0.29) H 11/03/19 11:34 NT-Pro-B Natriuret Pep 2661 pg/ml (0-1800) H 11/03/19 11:34 Total Protein 6.6 gm/dl (6.4-8.2) 11/03/19 11:34 Albumin 2.8 gm/dl (3.4-5.0) L 11/03/19 11:34 Globulin 3.8 gm/dl (2.5-4.0) 11/03/19 11:34 Albumin/Globulin Ratio 0.7 (0.9-2) L 11/03/19 11:34 Procalcitonin 0.16 ng/ml (0-0.5) 11/03/19 11:34 Urine Color Yellow 11/03/19 12:10 Urine Appearance Clear (Clear) 11/03/19 12:10 Urine pH 5.5 (4.5-7.5) 11/03/19 12:10 Ur Specific [place] 1.017 (1.000-1.030) 11/03/19 12:10 Urine Protein Negative (Negative) 11/03/19 12:10 Urine Glucose (UA) Negative (Negative) 11/03/19 12:10 Urine Ketones Negative (Negative) 11/03/19 12:10 Urine Blood Trace (Negative) H 11/03/19 12:10 Urine Nitrite Negative (Negative) 11/03/19 12:10 Urine Bilirubin Negative (Negative) 11/03/19 12:10 Urine Urobilinogen Negative (Negative) 11/03/19 12:10 Ur Leukocyte Esterase 1+ (Negative) H 11/03/19 12:10 Urine WBC (Auto) 1-5 /hpf (0-5) 11/03/19 12:10 Urine RBC (Auto) 0-4 /hpf (0-4) 11/03/19 12:10 U Hyaline Cast (Auto) 1-5 /lpf (0-5) 11/03/19 12:10 U Epithel Cells (Auto) 5-10 /lpf (0-5) H 11/03/19 12:10 Urine Bacteria (Auto) Negative (Negative) 11/03/19 12:10 Nasal Screen MRSA (PCR) Negative (Negative) 11/04/19 00:12 Digoxin 1.0 ng/ml (0.8-2.0) 11/03/19 11:34 COVID-19 PCR NEGATIVE (Negative) 11/03/19 Unknown Influenza Type A (PCR) Neg for Influ A (Neg) 11/03/19 Unknown Influenza Type B (PCR) Neg for Influ B (Neg) 11/03/19 Unknown Resident Activity Tracking Resident Involvement: Resident Care Provided Care Provided: Adult Hospital Medicine (1) COPD (chronic obstructive pulmonary disease) COPD type: COPD with acute exacerbation Qualified Code(s): J44.1 - Chronic obstructive pulmonary disease with (acute) exacerbation
[2019-11-05] MEDS: METOPROLOL SUCC 50MG EXT REL TAB PO SCH (19:47)
[2019-11-05] MEDS: ATORVASTATIN 40 MG TAB PO SCH (21:28)
[2019-11-05] MEDS: MIRTAZAPINE TAB 15 MG TAB PO SCH (21:29)
[2019-11-05] MEDS: TAMSULOSIN HCL 0.4 MG CAP PO SCH (21:30)
[2019-11-05] MEDS: FINASTERIDE 5 MG TAB PO SCH (21:30)
--- NOTE | 2019-11-05 22:31 | Communication Note ---
Date of Service: November 05, 2019 Received message from RN at 2021 regarding pt complaint of CP that happened at 1950. At 195 monitor mail clerk bills observed a 21 run of V-Tach. Pt notes felt like sharp pain right in center of chest. It occurred while in bed and with sudden onset. Nonradiating. Originally 11/25, 410 by time of my evaluation with no intervention. Pt notes that he has had this sensation many times this admission, but this was probably the worst time. Denied any SOB, palpitations, syncope or near syncope, edema. Pt with no other acute concerns or complaints. VSS: 36.6, 77, 22, 107/39 and 93% on 3 L/min NC. General: NAD. Cardiac: Irregularly irregular, normal rate. Respiratory: Diffuse rhonchi worse at RLL. Exp wheezing. Otherwise no respiratory distress, no labored breathing. Extremities with no edema. MSK: Pain reproducible on palpation. EKG ordered and showed A fib with occasional VPC's and with PVC's--Unchanged from prior. Trop ordered and 0.152. Chest Pain with Elevated Trop: Pt with no prior h/o CAD. In review of scanned in cardiology records, he had a normal cardiac catheterization in the last few years and has a nonischemic cardiomyopathy. ECHO from last admission: LV systolic fxn moderately reduced. EF 35-40%. RA mildly dilated. Mild MR. EKG findings not concerning for ACS. Pt with h/o chronically elevated trops--Likely demand ischemia in the setting of pneumonia vs Afib. Pain may have been from severe bronchoconstriction vs MSK in nature given reproducibility on palpation. Pt given duoneb breathing tx with improvement in sxs. Resident Activity Tracking Resident Involvement: Resident Care Provided Care Provided: Adult Hospital Medicine
[2019-11-05] MEDS: ALBUT/IPRATROP 3MG/0.5MG NEB 3 ML VIAL INH PRN (22:56)
[2019-11-06] MEDS: NYSTATIN SUSP 500,000 U/5 ML UDC PO SCH ×4 (00:32→12:37)
[2019-11-06] MEDS: ALBUT/IPRATROP 3MG/0.5MG NEB 3 ML VIAL INH PRN ×3 (03:18→15:50)
[2019-11-06] MEDS: CEFEPIME 2,000 MG in SYRINGE 7.5 ML IV SCH (04:10)
[2019-11-06] MEDS: FORMOTEROL 20 MCG/2 ML VIAL INH SCH (07:13)
[2019-11-06] MEDS: PANTOprazole 40 MG TAB PO SCH (08:41)
[2019-11-06] MEDS: GABAPENTIN 300 MG CAP PO SCH (08:41)
[2019-11-06] MEDS: APIXABAN 5 MG TABLET PO SCH (08:41)
[2019-11-06] MEDS: SULFAMETHOXAZOLE/TRIMETHOPRIM DS 800/160MG TAB PO SCH (08:41)
[2019-11-06] MEDS: guaiFENesin 600 MG TABCR PO SCH (08:41)
[2019-11-06] MEDS: UMECLIDINIUM BROMIDE 62.5MCG/BLISTER 7 PUFFS/INHALER INH SCH (08:42)
[2019-11-06] MEDS: DIGOXIN 0.25 MG TAB PO SCH (08:42)
[2019-11-06] MEDS: FERROUS SULFATE 325 MG TAB PO SCH (08:42)
[2019-11-06] MEDS: MULTIVITAMIN TAB PO SCH (08:42)
[2019-11-06] MEDS: LACTOBACILLUS ACIDOPHILUS (FLORANEX) TAB PO SCH (08:42)
[2019-11-06] MEDS: FUROSEMIDE 20 MG TAB PO SCH (08:43)
[2019-11-06] MEDS: NEOMYCIN/POLYMYXIN/GRAMICIDIN 10 ML BTL OPB SCH (08:43)
[2019-11-06] MEDS ORDERED: predniSONE 20 MG TAB PO SCH (09:00)
[2019-11-06 10:42] LABS: BUN Creatinine Ratio 55.6 (10-20); Calcium 8.4 mg/dl (8.5-10.1); Creatinine Clr Calc Pharmacy 71.7 ml/min; Est GFR (African American) 90.1; Est GFR (Non-African American) 77.7; Magnesium 2.5 mg/dl (1.8-2.4); Phosphorus 2.6 mg/dl (2.5-4.9)
--- NOTE | 2019-11-06 10:54 | Discharge Summary ---
Date of Service November 06, 2019 Admission HPI Per Admitting Provider Complicated 79yo male with chronic hypoxic respiratory failure on 3 L NC O2 continuously, COPD, h/o right upper lobe lung cancer s/p RUL resection/chemo/XRT, chronic systolic CHF EF 35-40%, recent hospital stay for RML/RLL pneumonia, ?ILD - presents from [facility] after awakening at 0430 with severe shortness of breath. About that time he got up from the bed and went to the bathroom. He was very weak and had significant cough after he got to the bathroom. Cough is nonproductive. No fever. Had chills before coming to the [facility] ER. Yesterday he felt well at [facility] and participated in therapy. Had good appetite. At [facility] prior to transfer he had a "slight" chest pain. He then developed more severe chest pain in our ER. Was right-sided, then radiated to the left side of chest. Pain improved with nitroglycerin in the ER along with aspirin. Had heart catheterization in the past at [facility] and [facility] - no CAD per his recollection. Denies any edema. Doesn't he feel he has had water retention. He is disappointed that he is ill again as [facility] was preparing to d/c him home in the next 1-2 days. I spoke with son by phone today and the son reported that his father sounded dyspneic and "raspy" last night when he spoke to his dad on the phone. Admission Exam Per Admitting Provider Constitutional: + acute distress (respiratory distress ), + ill appearing and + frail appearing; no altered mental status Eyes: + no PERRL (right surgical pupil; lens implants b/l ) ENMT: Mouth: + oral mucosal abnormality (severe thrush plaques on tongue and buccal mucosa ) and + dry oral mucous membranes Neck: trachea midline, no thyromegaly Respiratory: + respiratory distress, + labored breathing, + retractions, + uses accessory muscles, + cough and + tachypneic Auscultation: + crackles (right base) and + wheezes (severe, extensive, b/l, all lung segments; airation poor) Cardiovascular: Rate/Rhythm: regular rate and regular rhythm Heart Sounds: normal S1 and normal S2; no murmur Vessels: posterior tibial pulses present and dorsalis pedis pulses present; no JVD Extremities: no edema Gastrointestinal (Abdomen): normal bowel sounds, soft, nontender, no hepatosplenomegaly Musculoskeletal: Extremities: + clubbing Skin: no rashes, warm and dry Neurologic: deep tendon reflexes 2+ bilaterally and moves all extremities Psychiatric: Orientation: alert and oriented x 3 Affect: + anxious affect Lymphatic: no cervical lymphadenopathy Principal Diagnosis COPD exacerbation Discharge Exam Constitutional + thin and cooperative; no acute distress and not ill appearing Neck normal visual inspection Respiratory normal respiratory effort, + cough and able to speak in complete sentences; no respiratory distress, no labored breathing, no retractions and no audible wheezes Auscultation: + rhonchi and + wheezes; + lungs not clear to auscultation, no crackles and no rales Better airflow to right lung today, Cardiovascular Rate/Rhythm: regular rate and regular rhythm Heart Sounds: normal S1 and normal S2; no gallop, no murmur and no cardiac rub Vessels: posterior tibial pulses present Extremities: no pedal edema and no edema Gastrointestinal (Abdomen) Inspection/Auscultation: abdomen normal to inspection and normal bowel sounds; abdomen not distended Percussion/Palpation: abdomen soft; abdomen nontender, no guarding, abdomen not rigid and no abdominal mass Discharge Data Allergies Allergy/AdvReac Type Severity Reaction Status Date / Time Penicillins Allergy Mild Verified 11/03/19 12:21 Sulfa (Sulfonamide Allergy Mild Verified 11/03/19 12:21 Antibiotics) LOCALANESTHETIC Allergy Mild TOLERATES Uncoded 11/03/19 12:21 LIDOCAINE Consultations 11/03/19 13:16 ED Decision to Admit Stat 11/03/19 16:07 Consult Case Management - Discharge Planning Routine Consult Pulmonology Routine Hospital Course (1) Acute and chronic respiratory failure with hypoxia: 79 yo M with hx lung cancer s/p RUL resection + chemo, chronic hypoxic respiratory failure, interstitial lung disease, COPD on 3LNC continuous O2, systolic CHF EF 35%, pancytopenia, recently discharged from the hospital to [facility] for treatment of a pneumonia 10 days ago, readmitted for shortness of breath. 1) COPD exacerbation: improved with respiratory support in form of flutter valve, incentive spirometry, IV steroids, duonebs, mucinex. Did receive 2 days of IV antibiotics (Cefepime + Levaquin) as initial concern was for pneumonia in RLL when in the ED. however given improvement in symptoms and lack of increasing oxygen requirement, his presentation seemed more in line with COPD exacerbation than an acute infectious process. Respiratory plan from Pulmonology was as follows: - 40 mg daily prednisone for 2 more days, followed by 20 mg prednisone daily. - continue taking the guaifenesin mucolytic and flutter valve - Follow up with pulmonology in the next 1-2 weeks. Will need a repeat CT scan of chest in 3-4 weeks. - Incruse Ellipta switched to Anoro Ellipta - Continue daily Bactrim prophylaxis for PJP All other medical conditions managed per home regimen. (2) ICD (implantable cardioverter-defibrillator) in place: (3) Interstitial lung disease: (4) Chronic left ventricular systolic heart failure: (5) Chronic atrial fibrillation: (6) COPD (chronic obstructive pulmonary disease): Total Time Total Time Spent Total Time Spent (In Minutes): see attending attestation Discharge Plan Discharge Items Patient Disposition: Transfer Half-Way Fac Reason For Visit: ACUTE/CHRONIC HYPOXIC RESP FAILURE; RIGHT-SIDED PN Discharge Diagnosis: Acute on Chronic hypoxic respiratory failure, COPD exacerbation Activity: Resume your previous activity Non-emergency contact: Primary Care Provider and Armed Custom Protection Officer Call non-emergency contact if: you have any medication questions and your symptoms worsen Follow-up/Referrals: Lionel Marquis MD [Physician] - [facility] [Primary Care Provider] - Diet: Regular Addtl Attending Provider Instructions: You were evaluated in the hospital for worsening shortness of breath that was secondary to a COPD exacerbation. Because we were initially concerned for a pneumonia you received antibiotics, however you will not need to continue these going forward. The pulmonology team also saw you in the hospital and provided the below recommendations for continuing your improvement in care: - 40 mg daily prednisone for 2 more days, followed by 20 mg prednisone daily. - continue taking the guaifenesin mucolytic and flutter valve - Follow up with pulmonology in the next 1-2 weeks. You will need a repeat CT scan of your chest in 3-4 weeks. - Incruse Ellipta switched to Anoro Ellipta - Continue taking your daily Bactrim If you have questions or worsening shortness of breath, call your PCP or Pulmonolgist. Pending Studies at Discharge: No Stand-Alone Forms: My [facility] Skilled Items Patient informed of condition?: Yes DNR: No Discharge Level of Care: Acute rehab Communicable Disease: No Discharge Prognosis: Improving Lines: None Urinary Catheter: No Medications and DC Order Prescriptions: New nystatin 100,000 unit/mL Suspension 5 ml PO Q4 PRN (Reason: thrush ) 30 Days Qty: 60 RF: 0 prednisone 20 mg Tablet 40 mg PO DAILY 2 Days Qty: 4 RF: 0 sulfamethoxazole-trimethoprim 800-160 mg Tablet 1 tab PO DAILY Qty: 30 RF: 0 Stiolto Respimat 2.5-2.5 mcg/actuation mist 2 puffs INH DAILY Qty: 4 RF: 0 Continued metoprolol succinate 50 mg tablet extended release 24 hr 50 mg PO DAILY@1900 RF: 0 tamsulosin 0.4 mg capsule 0.4 mg PO HS RF: 0 ferrous sulfate 325 mg (65 mg iron) tablet 325 mg PO QDB RF: 0 losartan 25 mg tablet 12.5 mg PO DAILY RF: 0 gabapentin 300 mg capsule See Rx Instructions .ROUTE .COMPLEX RF: 0 digoxin 125 mcg (0.125 mg) tablet 125 mcg PO MOWEFR RF: 0 furosemide 20 mg tablet 60 mg PO QAM RF: 0 mirtazapine 15 mg tablet 15 mg PO HS RF: 0 ipratropium-albuterol 0.5 mg-3 mg(2.5 mg base)/3 mL Solution For Nebulization 3 ml INHALATION Q6H PRN (Reason: Shortness Of Breath Or Wheezing) RF: 0 digoxin 250 mcg (0.25 mg) Tablet 250 mcg PO SUTUTHSA RF: 0 finasteride [Proscar] 5 mg Tablet 5 mg PO HS RF: 0 multivitamin Tablet 1 tab PO QAM RF: 0 atorvastatin 80 mg tablet 80 mg PO HS RF: 0 pantoprazole 40 mg tablet,delayed release (DR/EC) 40 mg PO QAM RF: 0 budesonide 0.5 mg/2 mL Suspension For Nebulization 0.5 mg INHALATION BID RF: 0 Lactobacillus acidoph-L.bulgar [Floranex] 1 million cell Tablet 1 tab PO QAM RF: 0 sulfamethoxazole-trimethoprim 800-160 mg Tablet 1 tab PO DAILY 14 Days Qty: 14 RF: 0 guaifenesin [Mucinex] 600 mg Tablet Extended Release 12hr 1,200 mg PO Q12 14 Days Qty: 56 RF: 0 aojyrhsn-lcosfivqx-wjrpcnkzkv 1.75 mg-10,000 unit-0.025mg/mL Drops 2 drp OPB BID RF: 0 formoterol fumarate 20 mcg/2 mL Solution For Nebulization 20 mcg INHALATION BID RF: 0 Eliquis 5 mg tablet 5 mg PO Q12 RF: 0 prednisone 20 mg Tablet 20 mg PO BID 14 Days Qty: 28 RF: 0 Discontinued Incruse Ellipta 62.5 mcg/actuation Blister With Device 1 puff inhalation DAILY 14 Days Qty: 1 RF: 0 Discharge Orders: Discharge Order (Routine); Ordered 11/06/19 Ordered By: Bekah Soto Admission Data Admit Date/Time: 11/03/19 14:10 Attending Provider: Lj Steele Admit Provider: Juliano Chauhan Primary Care Provider: Arcenio Howard Other Providers: Juliano Chauhan ; Lionel Marquis ; Bekah Soto Other Interventions: Discharge Summary Assessment (RN) Last Done: 11/06/19 12:25 DC Date/Time DO NOT enter until pt leaves facility: 11/06/19 16:12 Supervising Physician Co-Signing Physician Notes Attending attestation Pt seen and examined in concert with Dr. Soto. In agreement with the documented findings as noted in the resident documentation with any exceptions or additions as noted here. Significantly improved affect and energy today, improved SOB at rest close to baseline. Peristent mild nonproductive cough. Overnight, had a run of ventricular tachycardia w/ ICD firing. On examination, appreciable improved aeration bilaterally with diffuse rhonchorous breath sounds & RLL rales. S1/S2 nl RRR COPD exacerbation in the setting of recent PNA - pulmonology consultation appreciated - abx received in hospital discontinued prior to discharge. Continue course of prednisone to be adjusted by pulmonology at follow up. Adjustment in home regimen as noted above. CHF - continue home furosemide with digoxin and metoprolol. On atorvastatin. Re: ICD firing, electrolytes stable, asymptomatic. Else see resident documentation as noted. Resident Activity Tracking Resident Involvement: Resident Care Provided Care Provided: Adult Hospital Medicine
--- NOTE | 2019-11-06 11:05 | Pulmonology Progress Note ---
Date of Service November 06, 2019 Assessment & Plan (1) Acute and chronic respiratory failure with hypoxia: 79-year-old male with past medical history of lung cancer 2006 status post right upper lobectomy, COPD on 3 L nasal cannula at baseline, MDS used to be on leflunomide who was recently admitted to the hospital with multilobar pneumonia was discharged on long taper of steroids along with Bactrim prophylaxis was discharged to a rehab is readmitted because of shortness of breath. Chest x-ray 11/03/2019:Portable film, there are infiltrates appreciated on the right side but there is significant improvement compared to the chest x-ray and CAT scan done on 10/20/2019 Chest x-ray 11/04/2019: Shows significant improvement in the right-sided opacity. --Acute on chronic hypoxic respiratory failure Likely secondary to COPD exacerbation I would continue with antibiotics for the time being and follow-up septic work- up ESR 18, CRP 1.05, procalcitonin 0.16, Covid-19: Negative, influenza negative BNP 2661 at the time of admission, this is also less than when he was admitted approximately 2 weeks ago. 2D echo 10/20/2019: EF: 35-40%, RVSP 30-40 mmHg Continue with diuresis as tolerated Continue with O2 supplementation to keep oxygen between 88-92% Continue with inhaled bronchodilators, steroids. BiPAP nightly and PRN shortness of breath --Severe COPD with emphysema Plan as above -- History of lung cancer Status post right upper lobectomy, chemo and radiation --CHF EF 35-40% Continue with diuresis --Plan: Continue with guaifenesin and flutter valve even on discharge. Continue with prednisone 40 mg for 2 days then titrate down to 20 mg on a daily basis till he sees his outpatient repairer handtools. Discharge the patient on Bactrim for PJP prophylaxis. Recommend discharging patient on combination of lama/LABA inhaler (Anoro/Stiolto/Bevespi). There is a possibility that leflunomide that the patient is taking is playing a role in the picture that he showed on the CT chest done on previous admission. Repeat CT chest in 3 to 4 weeks. (2) Multiple myeloma: Multiple myeloma remission status: unspecified Qualified Code(s): C90.00 - Multiple myeloma not having achieved remission (3) Lung cancer: Laterality: right Lung location: upper lobe of lung Qualified Code(s): C34.11 - Malignant neoplasm of upper lobe, right bronchus or lung (4) Pneumonia: Laterality: unspecified laterality Lung location: unspecified part of lung Pneumonia type: due to unspecified organism Qualified Code(s): J18.9 - Pneumonia, unspecified organism Admission and Anticipated Discharge Date Admission Date: November 03, 2019 Subjective Patient seen and examined at bedside. No acute distress, no adverse events overnight. Patient stated he is feeling much better since the time he came into the hospital. Shortness of breath is improved. Cough is decreased in intensity. Is not bringing up much phlegm. No chest pain, no dizziness, no headache, no nausea or vomiting. Good appetite. Review of Systems Review of Systems: All systems reviewed & are unremarkable except as noted in HPI & below Physical Exam Physical Exam: Constitutional: No acute distress HEENT: EOMI, sluggish response right pupil to light, arcus senilis bilaterally Respiratory system: Decreased air entry bilaterally, mild crackles right lower lobe with minimal rhonchi, no wheeze CVS: S1-S2 positive, no murmurs or gallops, distant heart sounds Abdomen: Soft, nontender, nondistended, positive bowel sounds x4 Extremities: +2 pulses bilaterally radialis/ dorsalis pedis, no cyanosis, no edema, cold lower extremities Neuro: Awake alert oriented x3 Psych: Normal mood and affect G/U: No Berry At the time of examination patient was saturating 99% on 3 L nasal cannula at rest with heart rate of 76. Skin: no rashes, warm and dry Lymphatic: no cervical or axillary lymphadenopathy Results & Data Results & Data ([facility]) Vital Signs (Past 12 Hours) Vital Signs Temp Pulse Pulse Resp BP Pulse Ox 11/06/19 08:42 66 11/06/19 08:11 36.3 C L 64 18 109/64 96 11/06/19 07:15 65 20 97 11/06/19 04:23 36.6 C 78 22 121/66 93 11/06/19 03:18 94 H 18 93 11/05/19 23:44 36.5 C 84 20 108/53 L 95 11/05/19 08:17 11/06/19 09:49 PG Care Time/CCT Total # of Minutes Spent Total Time Spent with Patient: Total time spent is greater than 50% in coordination of care (as documented) at patient's floor/unit and/or counseling patient: Coding Level of Care Code 54058 Subseq Hosp Care Lvl 3 Diagnoses Acute and chronic respiratory failure with hypoxia J96.21 Multiple myeloma C90.00 Multiple myeloma remission status: unspecified Lung cancer C34.11 Laterality: right Lung location: upper lobe of lung Pneumonia J18.9 Laterality: unspecified laterality Lung location: unspecified part of lung Pneumonia type: due to unspecified organism
--- NOTE | 2019-11-06 11:22 | Electrocardiogram Report ---
Test Reason : Blood Pressure : / mmHG Vent. Rate : 085 BPM Atrial Rate : 441 BPM P-R Int : 000 ms QRS Dur : 094 ms QT Int : 334 ms P-R-T Axes : 000 074 256 degrees QTc Int : 397 ms Atrial fibrillation with occasional ventricular-paced complexes and with premature ventricular or yves rrantly conducted complexes Nonspecific ST and T wave abnormality Abnormal ECG When compared with ECG of 04-NOV-2019 06:33, Vent. rate has increased BY 20 BPM Confirmed by Alec Barnes ([id number]) on 11/06/2019 11:22:35 AM Referred By: [facility] Confirmed By:Alec Barnes
[2019-11-06] MEDS: GABAPENTIN 600 MG TAB PO SCH (13:41)
--- NOTE | 2019-11-10 11:17 | Coding Query ---
CODING QUERY To promote full compliance with coding requirements relating to patient care, provider participation is requested in all cases of vehicle detailer uncertainty. Please assist us with the question(s) below: Coding Question(s): Sepsis was not followed through out the document can you please clarify the diagnosis of sepsis. Physician's Response(s): On admission, there was concern for sepsis secondary to pneumonia as patient had an elevated lactate and breathing difficulty with worsened shortness of breath. Over the course of admission, sepsis and bacterial pneumonia appeared to be less and less the cause of illness and more likely to be a COPD exacerbation and the patient's management was changed to reflect this. Sepsis: ( ) POA (x) Ruled out ( ) Other; please specify Thank you Carlie Miramontes Principal Diagnosis: "that condition established after study, to be chiefly responsible for occasioning the admission of the patient to the hospital for care." Co-Existing Principal Diagnosis: "when two or more diagnoses equally meet the criteria for principal diagnosis as determined by the circumstances of admission, diagnostic work up, and/or therapy provided, and the Alphabetic Index, Tabular List, or another coding guideline does not provide sequencing direction, any one of the diagnoses may be sequenced first." "When the physician has documented what appears to be a current diagnosis in the body of the record, but has not included the diagnosis in the final diagnostic statement, the physician should be asked whether the diagnosis should be added." (Source Coding Clinic 2 QTR90. p3-4) [facility]
== END 2019-11-06 16:12 | DRG 190 ==
LOC: ED 10:33 → SUATTDRO 14:10 → 2S 14:10